=== PATIENT | female | born 2000 | race Caucasian/White ===

== ENCOUNTER 2024-04-04 16:17 | Emergency (ER) | payer MEDICAID, SELFPAY ==
--- NOTE | ~2024-04-04 | US_ITS ---
CLINICAL HISTORY: epigastric pain, vomiting US abdomen limited Comparison: None Findings: The visualized pancreas is normal. The aorta and inferior vena cava are normal caliber. The liver is normal in size and echotexture. There is no intrahepatic bile duct dilatation. The common duct is two mm in diameter. The gallbladder is normal. No stones or sludge seen. There is no sonographic Cochran sign. The main portal vein is antegrade. Visualized images of the right kidney are normal in appearance without hydronephrosis. No ascites. IMPRESSION: 1. Normal limited abdominal ultrasound. This document has been electronically signed by: Edmond Felder MD on 04/04/2024 20:17:12
[2024-04-04 16:29] VITALS: BP 130/90; PULSE 133; O2SAT 93
[2024-04-04 16:32] VITALS: BP 113/74; PULSE 111; RESP 20; TEMP 36.9; O2SAT 100; BMI 15.4
--- NOTE | 2024-04-04 16:48 | ED_ITS ---
HPI - General Adult General Chief complaint: Anxiety Stated complaint: fall in shower, vomiting Time Seen by Provider: 04/04/24 16:28 Source: patient and EMS Mode of arrival: EMS Limitations: no limitations History of Present Illness ED Provider: PRABHA DAILEY PA-C HPI narrative: 23-year-old female with pmhx significant for H pylori presents to the ED today for evaluation of nausea, vomiting and abdominal pain x6 days. Reports vomiting bile. Denies any blood in emesis. She has not been table to tolerate any PO intake. Reports having an anxiety attack while in the shower this morning as she could not stop vomiting. Reports falling to the ground. Denies head strike or LOC. Not on anticoagulation. She reports calling EMS and was transported to the ED for further evaluation. Reports hx of h pylori 1-2 yrs ago. She had an EGD done at that time and was treated appropriately. States symptoms have been fairly under control until 6 days ago. Also endorses hx of renal stones that have passed on their own. She did not require surgery/ lithotripsy. Admits to regular marijuana use. She last smoked 2-3 days ago. Denies chance of . She is currently on her menstrual period which she started 2 days ago. Denies any fever, chills, dysuria, hematuria, diarrhea, constipation, vaginal discharge. No hx of abdominal surgeries. Related Data Previous Rx's ?Medication ?Instructions ?Recorded ondansetron HCl 4 mg tablet 4 mg PO Q8H PRN nausea and 04/04/24 vomiting #10 tabs Allergies Allergy/AdvReac Type Severity Reaction Status Date / Time No Known Allergies Allergy Verified 04/04/24 16:35 Review of Systems 2 Review of Systems: Constitutional: No fever, chills, fatigue, night sweats, weight changes ENT/Mouth: No ear pain, hearing loss, nasal congestion, sinus pain, rhinorrhea, sore throat Eyes: No eye pain, swelling, redness, vision changes, discharge Cardio: No chest pain, palpitations, PELAEZ, orthopnea, peripheral edema Pulm: No SOB, cough, sputum, wheezing, dyspnea, hemoptysis GI: No hematemesis, diarrhea, constipation, hematochezia, melena, +N/V, +abd pain : No irregular bleeding, dysuria, frequency, urgency, hesitancy, hematuria, flank pain, urinary flow changes, urinary incontinence or retention MSK: No back pain, neck pain, joint pain, myalgias Skin: No lesions, rashes Neuro: No weakness, numbness, paresthesias, LOC, dizziness, headache Psych: No anxiety/panic, depression, SI/HI, AH/VH All other systems reviewed and are negative. FORMERLY [facility], 1928–1983 Past Medical History Attestation statement: The following information was validated with the patient. Source: old records reviewed and nursing notes reviewed Physical Exam ED Vital Signs: Vital Signs - 24 hr 04/04/24 16:32 04/04/24 19:33 04/04/24 22:02 Temperature 98.4 F 98.9 F 98.9 F Pulse Rate 111 H 100 100 Respiratory Rate 20 12 12 Blood Pressure 113/74 100/61 100/61 Pulse Oximetry 100 99 99 Oxygen Delivery Method Room Air Room Air Room Air BMI result Body Mass Index 15.4 tachycardic, afebrile General: pale appearing, thin, anxious Skin: Warm, dry, intact. No rashes or lesions. Head: Normocephalic, atraumatic. EENT: Hearing is intact b/l. Conjunctiva clear. PERRLA. EOM intact. Moist mucous membranes.? Neck: Supple without LAD Cardiac: Chest wall symmetric. RRR Lungs: Normal respiratory effort without accessory muscle use. CTA bilaterally. No rales, rhonchi, or wheezes.? Abdomen: soft, ND, diffusely ttp primarily in the epigastric region and LLQ with voluntary guarding. no rebound. normoactive bs. emesis bag filled with bilious vomitus. no cvat. Back: No midline spinous or paraspinal tenderness. No step off deformity. Ext: Upper and lower extremities atraumatic, without tenderness, deformity, swelling or erythema Neuro: AOx3. Normal speech. Ambulating with steady gait. Psych: Appropriate mood and affect. Responds appropriately to questions. Course Course Course Narrative: 1810 -- cbc without leukocytosis or left shift. no anemia, h&h stable. chemistry showing hyponatremia 133 (likely hypovolemic), hypokalemia to 2.6, magnesium wnl, chloride 91. no kelly. total bili 1.4. liver function wnl. lipase wnl. > imaging pending. ekg ordered d/t hypokalemia. > patient received Reglan / Benadryl for vomiting, ativan for anxiety, IVF, and potassium (IV/PO) for repletion. I ordered IV toradol for pain, patient declining stating she would prefer po tylenol. this has been ordered. 1829 -- ekg showing prolonged QT. patient moved to room w/ monitor, placed on continuous cardiac monitoring. 1899 -- patient is stable at the end of my shift. Sign-out given to sherlyn low pending UA, imaging and disposition. Reevaluation(s) Reevaluation #1: I Susan Titus PA-C have accepted care of the patient and signed out pending imaging and final disposition Right upper quadrant ultrasound:Findings: The visualized pancreas is normal. The aorta and inferior vena cava are normal caliber. The liver is normal in size and echotexture. There is no intrahepatic bile duct dilatation. The common duct is two mm in diameter. The gallbladder is normal. No stones or sludge seen. There is no sonographic Cochran sign. The main portal vein is antegrade. Visualized images of the right kidney are normal in appearance without hydronephrosis. No ascites. IMPRESSION: 1. Normal limited abdominal ultrasound. This document has been electronically signed by: Edmond Felder MD on 04/04/2024 20:17:12 Reevaluation #2: Patient feels well no longer nauseous her treatment is complete Medications Administered Discontinued Medications Generic Name Dose Route Start Last Admin Trade Name Freq PRN Reason Stop Dose Admin Acetaminophen 650 mg 04/04/24 17:58 04/04/24 18:03 Acetaminophen 325 Mg Tablet PO 04/04/24 17:59 650 mg ONCE ONE Administration Diphenhydramine HCl 25 mg 04/04/24 17:05 04/04/24 17:51 Diphenhydramine Hcl 50 Mg/Ml Vial IVPUSH 04/04/24 17:06 25 mg ONCE ONE Administration Sodium Chloride 1,000 mls @ 999 mls/hr 04/04/24 17:15 04/04/24 18:56 Ns IV 04/04/24 18:15 Infused .Q1H1M HERNAN Infusion Potassium Chloride 10 meq in 100 mls @ 100 mls/hr 04/04/24 18:15 04/04/24 21:55 Potassium Chloride/H20 IV 04/04/24 20:14 Infused Q1H HERNAN Infusion Lorazepam 0.5 mg 04/04/24 17:57 04/04/24 18:04 Lorazepam 2 Mg/Ml Vial IVPUSH 04/04/24 17:58 0.5 mg ONCE ONE Administration Metoclopramide HCl 10 mg 04/04/24 17:05 04/04/24 17:47 Metoclopramide Hcl 10 Mg/2 Ml Vial IVPUSH 04/04/24 17:06 10 mg ONCE ONE Administration Potassium Chloride 60 meq 04/04/24 18:07 04/04/24 18:55 Potassium Chloride Packet 20 Meq Packet PO 04/04/24 18:08 60 meq ONCE ONE Administration Medical Decision Making Medical Decision Making [facility] Narrative: 23-year-old female with pmhx significant for H pylori presents to the ED today for evaluation of nausea, vomiting and abdominal pain x6 days. she is tachycardic, vitals are otherwise wnl. she is thin, anxious appaering. on exam, abdomen is soft, ND, diffusely ttp primarily in the epigastric region and LLQ with voluntary guarding. no rebound. normoactive bs. emesis bag filled with bilious vomitus. no cvat. mucous membranes are dry. Differential diagnoses: appendicitis, diverticulitis, diverticulosis, UTI, renal colic, nephrolithiasis, hydronephrosis v pyelonephritis, cyclical vomiting, anxiety Abdominal exam without peritoneal signs. No evidence of acute abdomen at this time. Well appearing. Low suspicion for acute hepatobiliary disease (including acute cholecystitis), acute infectious processes (pneumonia, hepatitis, PID, TOA), vascular catastrophe, bowel obstruction or viscus perforation, ovarian cyst/ rupture/ torsion, ectopic. Presentation not consistent with other acute, emergent causes of abdominal pain at this time. Plan: labs, UA, pain control, fluids, serial reassessment +/- imaging Differential Diagnosis Differential Diagnoses: The differential diagnosis associated with the presentation includes as above. Admission/Observation Consideration of admission/observation: Escalation of care including admission/observation considered Admission considered on presentation. Lab Data [facility] Lab Attestation statement: I reviewed the patient's lab results. as above. 04/04/24 17:39 04/04/24 17:39 Labs: Lab Results 04/04/24 04/04/24 Range/Units 17:39 21:56 WBC 7.7 (4.8-10.8) X10*3/uL RBC 4.89 (4.20-5.50) X10*6/uL Hgb 14.2 (12.0-16.0) g/dl Hct 39.4 (37.0-47.0) % MCV 80.6 (80.0-98.0) fL MCH 29.0 (27.0-33.0) pg MCHC 36.0 H (31.0-35.0) g/dl RDW 15.0 (11.0-16.0) % Plt Count 439 H (160-400) X10*3/uL MPV 8.3 L (9.4-12.3) fL Immature Gran % (Auto) 0.4 (0.0-0.4) % Neut % (Auto) 64.9 (45-73) % Lymph % (Auto) 23.2 (20-40) % Floyd % (Auto) 10.8 (2-11) % Eos % (Auto) 0.3 (0-4) % Baso % (Auto) 0.4 (0-2) % Lymph # (Auto) 1.8 (1.2-4.9) X10*3/uL Floyd # (Auto) 0.8 (0.1-1.2) X10*3/uL Eos # (Auto) 0.0 (0.0-0.4) X10*3/uL Baso # (Auto) 0.0 (0.0-0.2) X10*3/uL Abs Immat Gran (auto) 0.03 (0.00-0.03) X10*3/uL Absolute Neuts (auto) 5.0 (2.0-8.3) x10*3/uL Absolute Nucleated RBC 0.000 (0.0-0.012) X10*3/uL Nucleated RBC % (auto) 0.0 (0.0-0.2) /100WBC Sodium 133 L (135-145) mmol/L Potassium 2.6 L* (3.3-5.1) mmol/L Chloride 91 L (96-108) mmol/L Carbon Dioxide 28 (22-29) mmol/L Anion Gap 17 (12-20) BUN 11 (9-16) mg/dL Creatinine 0.72 (0.5-1.4) mg/dL Estim Creat Clear Calc 79.0 Estimated GFR > 60 Random Glucose 100 (60-115) mg/dL Calcium 10.2 (8.4-10.2) mg/dL Magnesium 2.3 (1.6-2.6) mg/dL Total Bilirubin 1.4 H (0.0-1.0) mg/dL AST 26 (5-31) U/L ALT < 6 (0-31) U/L Alkaline Phosphatase 64 (39-117) U/L Total Protein 9.2 H (6.5-8.0) g/dL Albumin 4.7 (3.5-5.0) g/dL Lipase 12 (8-78) U/L Beta HCG, Quant < 2 mIU/mL Urine Color Yellow Urine Appearance Clear Urine pH >= 9.0 (5.0-9.0) Ur Specific [place] 1.010 (1.005-1.025) Urine Protein Trace (Neg-Trace) mg/dL Urine Glucose (UA) Negative (Negative) mg/dL Urine Ketones 40 (Negative) mg/dL Urine Blood Moderate (2+) H (Negative) Urine Nitrite Negative (Negative) Ur Leukocyte Esterase Trace H (Negative) Urine RBC 0-2 (0-2) /HPF Urine WBC 0-5 (0-5) /HPF Ur Squamous Epith Cells 0-2 (0-2) /HPF Urine Bacteria Trace (None Seen) Hyaline Casts 0-2 (0-2) /LPF Urine Test NEGATIVE (NEGATIVE) Influenza Type A (PCR) NEGATIVE (Negative) Influenza Type B (PCR) NEGATIVE (Negative) RSV RNA Qual (PCR) NEGATIVE (Negative) SARS-CoV-2 RNA (RT-PCR) NEGATIVE (Negative) Independent Interpretation I performed an independent interpretation of an: EKG and Ultrasound Interpretation: RUQ us w/o gb wall thickening, no sludge EKG showing normal sinus rhythm, rate 95 beats per minute, QT 432, prolonged QT, no acute ischemic changes or ST elevations. Radiology Impression Discussion of test interpretation with radiology: I have reviewed the radiologist's reading. Radiologist Impression: Procedure(s): US abdomen limited Accession Number(s): [id number] cc: Physician,Unknown ; Prabha Dailey~ CLINICAL HISTORY: epigastric pain, vomiting US abdomen limited Comparison: None Findings: The visualized pancreas is normal. The aorta and inferior vena cava are normal caliber. The liver is normal in size and echotexture. There is no intrahepatic bile duct dilatation. The common duct is two mm in diameter. The gallbladder is normal. No stones or sludge seen. There is no sonographic Cochran sign. The main portal vein is antegrade. Visualized images of the right kidney are normal in appearance without hydronephrosis. No ascites. IMPRESSION: 1. Normal limited abdominal ultrasound. This document has been electronically signed by: Edmond Felder MD on 04/04/2024 20:17:12 Prescription Management I considered prescription management with: Pain Medication Chronic Conditions Patient?s care impacted by: Other (anxiety) Social Determinants Patient?s care significantly limited by Social Determinants of Health including: Other Social Determinant of Health Critical Care Time Critical Care Time Critical Care Time: No Discharge Plan Discharge Clinical Impression: Acute anxiety, Nausea & vomiting, Acute hypokalemia Patient Disposition: Home, Self-Care Instructions: Potassium Content of Foods List (ED), Hypokalemia (ED), Acute Nausea and Vomiting (ED), Anxiety (ED) Additional Instructions: Overall, all of your screening labs were normal, besides your potassium which was low. See home care instructions, I have provided you with a list of potassium rich foods. The low potassium was induced by the vomiting. Uses Zofran as needed for additional nausea. The ultrasound of your abdomen was normal. Follow up with your primary care provider as needed. Prescriptions: New ondansetron HCl 4 mg tablet 4 mg PO Q8H PRN (Reason: nausea and vomiting) Qty: 10 0RF Interventions: ED Discharge Assessment Last Done: 04/04/24 22:02 Discharge Date/Time: 04/04/24 22:05 Print Language: American
[2024-04-04 17:45] LABS: MANUAL DIFF FLAG NO
[2024-04-04 17:46] LABS: Basophils Percent Auto 0.4 % (0-2); Eosinophils Percent Auto 0.3 % (0-4); Hematocrit 39.4 % (37.0-47.0); Hemoglobin 14.2 g/dl (12.0-16.0); Imm Gran Abs Auto 0.03 X10*3/uL (0.00-0.03); Imm Gran Pct Auto 0.4 % (0.0-0.4); Lymphocytes Absolute Auto 1.8 X10*3/uL (1.2-4.9); Lymphocytes Percent Auto 23.2 % (20-40); Mean Corpuscular Volume 80.6 fL (80.0-98.0); Mean Platelet Volume 8.3 fL (9.4-12.3); Monocytes Absolute Auto 0.8 X10*3/uL (0.1-1.2); Monocytes Percent Auto 10.8 % (2-11); Neutrophils Percent Auto 64.9 % (45-73); Platelet Count 439 X10*3/uL (160-400); Red Blood Count 4.89 X10*6/uL (4.20-5.50); White Blood Count 7.7 X10*3/uL (4.8-10.8)
[2024-04-04] MEDS: Metoclopramide HCl 10 MG/2 ML VIAL IVPUSH (17:47)
[2024-04-04] MEDS: diphenhydrAMINE HCL 50 MG/ML VIAL 25 MG IVPUSH (17:51)
[2024-04-04] MEDS: 0.9 % Sodium Chloride 1,000 ML 999 ML IV (17:53)
[2024-04-04] MEDS: Acetaminophen 325 MG TABLET 650 MG PO (18:03)
[2024-04-04] MEDS: LORazepam 2 MG/ML VIAL 0.5 MG IVPUSH (18:04)
[2024-04-04 18:06] LABS: Alanine Aminotransferase < 6 U/L (0-31); Albumin Level 4.7 g/dL (3.5-5.0); Alkaline Phosphatase 64 U/L (39-117); Anion Gap 17 (12-20); Aspartate Amino Transferase 26 U/L (5-31); Bilirubin Total 1.4 mg/dL (0.0-1.0); Blood Urea Nitrogen 11 mg/dL (9-16); Calcium 10.2 mg/dL (8.4-10.2); Carbon Dioxide 28 mmol/L (22-29); Chloride 91 mmol/L (96-108); Estimated Glomerular Filt Rate > 60; Glucose Random 100 mg/dL (60-115); Lipase 12 U/L (8-78); Magnesium 2.3 mg/dL (1.6-2.6); Potassium 2.6 mmol/L (3.3-5.1); Sodium 133 mmol/L (135-145); Total Protein 9.2 g/dL (6.5-8.0)
--- NOTE | 2024-04-04 18:06 | ECG_ITS ---
Test Reason : ANXIETY Blood Pressure : */* mmHG Vent. Rate : 95 BPM Atrial Rate : 95 BPM P-R Int : 132 ms QRS Dur : 86 ms QT Int : 432 ms P-R-T Axes : 86 99 70 degrees QTcB Int : 542 ms Normal sinus rhythm Rightward axis Prolonged QT Abnormal ECG No previous ECGs available Referred By: Prabha Dailey Electronically Signed By: Dante Taylor
[2024-04-04 18:27] LABS: Influenza A PCR NEGATIVE (Negative); Influenza B PCR NEGATIVE (Negative); Resp Syncy Virus RNA Qual PCR NEGATIVE (Negative); SARS COV2 PCR INHOUSE NEGATIVE (Negative)
[2024-04-04] MEDS: Potassium Chloride/H20 10 MEQ/100 ML PIGGYBACK 100 MEQ IV ×2 (18:37→19:55)
[2024-04-04] MEDS: Potassium Chloride Packet 20 MEQ PACKET 60 MEQ PO (18:55)
[2024-04-04 19:33] VITALS: BP 100/61; PULSE 100; RESP 12; TEMP 37.2; O2SAT 99
[2024-04-04 19:37] LABS: HCG Quantitative < 2 mIU/mL
--- OUTSIDE RECORDS SUMMARY | 2024-04-04 20:00 | XMS_ITS | Clinical Summary ---
Author Organization [facility] Address [phone] [facility] [place] [address] [place] [address] Care Team Providers Care Cotton Farmer Name Role Phone Honey Pollock PA-C Unavailable [phone] Lester Covington MD Unavailable Maye Avila MD Primary Care Provider [phone] Allergies No known active allergies Medications Medication Sig Dispensed Refills Start Date End Date Status ondansetron (ZOFRAN) 8 MG tablet Take 1 tablet (8 mg total) by mouth every 8 (eight) hours as needed for nausea. 90 tablet 01/17/2024 Active tacrolimus (PROTOPIC) 0.1 % ointment Apply topically 2 (two) times a day. Apply thin layer to face X 2 weeks, 30 g 1 01/17/2024 Active fluticasone propionate (FLONASE) 50 mcg/actuation nasal sprayIndications:All ergic rhinitis, unspecified seasonality, unspecified trigger 2 sprays by Nasal route daily. 11.1 mL 03/21/2024 Active rimegepant (NURTEC) 75 mg tablet Take 1 tablet (75 mg total) by mouth every other day. 8 tablet 03/21/2024 Active ondansetron (ZOFRAN-ODT) 4 MG disintegrating tablet Take 1 tablet (4 mg total) by mouth every 8 (eight) hours as needed for nausea. 10 tablet 04/03/2024 Active rimegepant (NURTEC) 75 mg tablet Take 1 tablet (75 mg total) by mouth every other day. 16 tablet 11 09/09/2023 02/12/202 5 Discontinue d(Reorder) fluticasone propionate (FLONASE) 50 mcg/actuation nasal sprayIndications:All ergic rhinitis, unspecified seasonality, unspecified trigger 2 sprays by Nasal route daily. 16 g 11 10/04/2023 5 Discontinue d(Reorder) Active Problems Problem Noted Date Diagnosed Date Positive Lyme disease serology 12/27/2023 Overview (01/02/2024): 12/26/23 - Lyme Ab, IgM, positive; Western Blot positive for 1 IgG and 1 IgM protein. Assessment & Plan (01/02/2024 2:36 PM EST): Appears well. Afebrile. No pharyngeal swelling or erythema. Mild bilateral cervical lymphadenopathy; improved compared to prior. Non-tender. No abdominal tenderness or fullness on exam. Continue on Doxycycline for 3 more days for Lyme; new script sent. Provided with home care instructions for [place]. and Lyme including continued rest and no contact sports, heavy lifting x 4 weeks. Follow up if no continued improvement or any recurrent symptoms. Patient verbalized understanding and agrees with this plan of care. Body aches 12/26/2023 Assessment & Plan (12/26/2023 3:55 PM EST): Appears ill; no acute distress. Afebrile. BP low (90/50). Bilateral tender cervical adenopathy. Posterior pharyngeal erythema. Bilateral middle ear effusion. Lungs CTA throughout all lobes. TTP RUQ. No rigidity or guarding. No CVA tenderness. COVID, Flu and rapid strep. negative. Check CBC, CMP, Lyme, Monospot and HCG Quant. Samples sent for UA and Wet prep. Appears consistent with viral infection. Will contact with results and management plan as necessary. Nasal saline and nasal steroid spray twice daily for 7 days then once daily for 7 days. Rest and plenty of fluids. Cool mist humidifier in room overnight. Please follow-up if no improvement or any worsening symptoms. Patient verbalized understanding and agrees with this plan of care. Stuffy and runny nose 12/26/2023 Assessment & Plan (12/26/2023 3:56 PM EST): Appears ill; no acute distress. Afebrile. BP low (90/50). Bilateral tender cervical adenopathy. Posterior pharyngeal erythema. Bilateral middle ear effusion. Lungs CTA throughout all lobes. TTP RUQ. No rigidity or guarding. No CVA tenderness. COVID, Flu and rapid strep. negative. Check CBC, CMP, Lyme, Monospot and HCG Quant. Samples sent for UA and Wet prep. Appears consistent with viral infection. Will contact with results and management plan as necessary. Nasal saline and nasal steroid spray twice daily for 7 days then once daily for 7 days. Rest and plenty of fluids. Cool mist humidifier in room overnight. Please follow-up if no improvement or any worsening symptoms. Patient verbalized understanding and agrees with this plan of care. Sore throat 12/26/2023 Assessment & Plan (12/26/2023 3:56 PM EST): Appears ill; no acute distress. Afebrile. BP low (90/50). Bilateral tender cervical adenopathy. Posterior pharyngeal erythema. Bilateral middle ear effusion. Lungs CTA throughout all lobes. TTP RUQ. No rigidity or guarding. No CVA tenderness. COVID, Flu and rapid strep. negative. Check CBC, CMP, Lyme, Monospot and HCG Quant. Samples sent for UA and Wet prep. Appears consistent with viral infection. Will contact with results and management plan as necessary. Nasal saline and nasal steroid spray twice daily for 7 days then once daily for 7 days. Rest and plenty of fluids. Cool mist humidifier in room overnight. Please follow-up if no improvement or any worsening symptoms. Patient verbalized understanding and agrees with this plan of care. Possible 12/26/2023 Assessment & Plan (12/26/2023 3:57 PM EST): Check HCG Quant. Samples sent for UA and Wet prep. Fever 12/26/2023 Assessment & Plan (12/26/2023 3:56 PM EST): Appears ill; no acute distress. Afebrile. BP low (90/50). Bilateral tender cervical adenopathy. Posterior pharyngeal erythema. Bilateral middle ear effusion. Lungs CTA throughout all lobes. TTP RUQ. No rigidity or guarding. No CVA tenderness. COVID, Flu and rapid strep. negative. Check CBC, CMP, Lyme, Monospot and HCG Quant. Samples sent for UA and Wet prep. Appears consistent with viral infection. Will contact with results and management plan as necessary. Nasal saline and nasal steroid spray twice daily for 7 days then once daily for 7 days. Rest and plenty of fluids. Cool mist humidifier in room overnight. Please follow-up if no improvement or any worsening symptoms. Patient verbalized understanding and agrees with this plan of care. Vaginal discharge 12/26/2023 Assessment & Plan (12/26/2023 3:57 PM EST): No CVA tenderness. Check HCG Quant. Samples sent for UA and Wet prep. RUQ pain 12/26/2023 Assessment & Plan (12/26/2023 3:56 PM EST): Appears ill; no acute distress. Afebrile. BP low (90/50). Bilateral tender cervical adenopathy. Posterior pharyngeal erythema. Bilateral middle ear effusion. Lungs CTA throughout all lobes. TTP RUQ. No rigidity or guarding. No CVA tenderness. COVID, Flu and rapid strep. negative. Check CBC, CMP, Lyme, Monospot and HCG Quant. Samples sent for UA and Wet prep. Appears consistent with viral infection. Will contact with results and management plan as necessary. Nasal saline and nasal steroid spray twice daily for 7 days then once daily for 7 days. Rest and plenty of fluids. Cool mist humidifier in room overnight. Please follow-up if no improvement or any worsening symptoms. Patient verbalized understanding and agrees with this plan of care. Cervical adenopathy 12/26/2023 Assessment & Plan (12/26/2023 3:56 PM EST): Appears ill; no acute distress. Afebrile. BP low (90/50). Bilateral tender cervical adenopathy. Posterior pharyngeal erythema. Bilateral middle ear effusion. Lungs CTA throughout all lobes. TTP RUQ. No rigidity or guarding. No CVA tenderness. COVID, Flu and rapid strep. negative. Check CBC, CMP, Lyme, Monospot and HCG Quant. Samples sent for UA and Wet prep. Appears consistent with viral infection. Will contact with results and management plan as necessary. Nasal saline and nasal steroid spray twice daily for 7 days then once daily for 7 days. Rest and plenty of fluids. Cool mist humidifier in room overnight. Please follow-up if no improvement or any worsening symptoms. Patient verbalized understanding and agrees with this plan of care. Infectious mononucleosis without complication Overview (01/02/2024): 12/26/23 - Heterophile Ab, positive. Assessment & Plan (01/02/2024 2:36 PM EST): Appears well. Afebrile. No pharyngeal swelling or erythema. Mild bilateral cervical lymphadenopathy; improved compared to prior. Non-tender. No abdominal tenderness or fullness on exam. Continue on Doxycycline for 3 more days for Lyme; new script sent. Provided with home care instructions for [place]. and Lyme including continued rest and no contact sports, heavy lifting x 4 weeks. Follow up if no continued improvement or any recurrent symptoms. Patient verbalized understanding and agrees with this plan of care. control counseling 10/14/2023 Assessment & Plan (10/14/2023 11:27 AM EDT): Would defer adding hormonal contraception to the mix at this time given ongoing mood disorder, starting new migraine meds, etc. She will switch to non-latex condom ie polyisoprene option. She could switch lubricant from water based to coconut oil. Would want her psychiatrist's OK prior to initiation of OCP. Readdress longitudinally. Protein-calorie malnutrition, moderate Assessment & Plan (10/14/2023 11:24 AM EDT): Weight stable. Hopefully as migraine Rx starts to kick in this will turn around. Reports her appetite is improving. Will request nutrition consult again. Short term follow-up for weight check. Assessment & Plan (10/04/2023 3:04 PM EDT): Weight down 11# in 2-3 weeks, she attributes to chronic nausea/vomiting in setting of increased migraines triggered in part by worsening allergies, also confounded by ongoing anxiety. Declines purposeful food restriction. Will attempt improved allergy Rx, she plans to start Nurtec in the near term. Suggest she hold all dairy, she will look for milk-substitute (ie soy, dairy, almond milk) to make smoothies. Will request nutrition consult. Short term follow-up for weight check. Assessment & Plan (09/16/2023 2:55 PM EDT): Weight stable. Continue efforts at maximizing nutrition, maintaining a healthy weight, and regular aerobic exercise (goal 150 minutes per week) to achieve long-term health goals. Emphasize healthy food choices, portion control. Consider crm marketing analyst referral for ongoing support. Longitudinally monitor. Pre-menstrual syndrome 08/19/2023 Assessment & Plan (08/19/2023 9:05 AM EDT): Discussed option of long-acting contraceptives as potentially beneficial for her symptoms. Provided with patient education to review. Referred to MANAGER RETAIL for further evaluation and management. Patient verbalized understanding and agrees with this plan of care. Migraine with visual aura 08/19/2023 Assessment & Plan (10/14/2023 11:25 AM EDT): Undergoing evaluation/treatment per neurology. Note given to return to work next week. Assessment & Plan (10/04/2023 3:06 PM EDT): Undergoing evaluation/treatment per neurology. Out on FMLA, will reassess mid October. Assessment & Plan (09/16/2023 2:55 PM EDT): Undergoing evaluation/treatment per neurology. OK for FMLA ppw, filled out in office today. Assessment & Plan (08/19/2023 9:05 AM EDT): Referred to Ophthalmology for further evaluation. Allergic rhinitis 04/22/2023 Assessment & Plan (10/14/2023 11:25 AM EDT): Improved on addition of singulair. Assessment & Plan (10/04/2023 3:05 PM EDT): Will add singulair to current regimen for goals of improved nasal congestion. D/C dairy in case this is additive. Hold ENT eval in reserve for ongoing. Assessment & Plan (06/09/2023 12:02 PM EDT): Well controlled with Flonase Assessment & Plan (04/22/2023 12:50 PM EDT): The patient has evidence of allergic rhinitis. The patient will benefit from daily maintenance nasal corticosteroid therapy. Start Flonase 2 sprays each nostril qd. Try Neti pot sinus rinses to remove post nasal drip. Environmental allergy testing will be performed in the future when off antihistamines for 1 week. Posttraumatic stress disorder 10/01/2022 Assessment & Plan (03/31/2023 10:38 AM EST): Maintain hydration, d/c caffeine-containing products, alcohol, and/or marijuana-containing products if applicable. Exercise as able, maximize sleep and nutrition. Stress relief modalities as appropriate. Verbally contracted for safety. Establish with therapist. Readdress longitudinally. Assessment & Plan (10/01/2022 10:52 AM EDT): - I believe that fluoxetine would be a reasonable choice as a medication trial; I would start at a low dose, such as 10 mg and titrate slowly as tolerated, up to 60 mg daily. It tends to be more of an activating medication, which may reduce fatigue symptoms when starting the medication. - If fluoxetine is ultimately ineffective or cannot be tolerated, duloxetine would be a reasonable choice, particularly given her history of juvenile rheumatoid arthritis and her reports of continued chronic pain symptoms. I would again start at a low dose, 20 mg daily, titrating up to a maximum of 120 mg daily. - While lorazepam could be helpful at aborting panic symptoms, I generally try to avoid benzodiazepines in patients with trauma history due to potential for paradoxical reaction; if her blood pressure can tolerate it, low-dose clonidine or propranolol may be reasonable options as long as dosing is infrequent. - As I mentioned above, I believe that connecting with a psychotherapist would be very beneficial. Specifically, therapist trained in working with patients with severe trauma and/or PTSD would likely be most beneficial. Annual physical exam 09/28/2022 Assessment & Plan (10/04/2023 3:05 PM EDT): Continue efforts at routine exercise (goal 30 minutes 5-7 days/week), healthy diet, maintain healthy weight. Adequate calcium and vitamin D. Seatbelts/sunscreen. Routine ophtho/dental. Age-specific USPSTF screening tests reviewed. Pap per court abstractor, will request prior records. Assessment & Plan (09/28/2022 8:41 PM EDT): Continue efforts at routine exercise (goal 30 minutes 5-7 days/week), healthy diet, maintain healthy weight. Adequate calcium and vitamin D. Seatbelts/sunscreen. Routine ophtho/dental. Age-specific USPSTF screening tests reviewed. Anxiety 08/06/2022 Assessment & Plan (10/04/2023 3:05 PM EDT): Per psych. Assessment & Plan (03/31/2023 10:37 AM EST): Reports somewhat improved on fluoxetine although still with intermittent episodes of panic/vomiting -- PTSD vs other. OK for rare intermittent benzodiazepine. We reviewed the medical recommendations to avoid regular use of benzodiazepines given the possibility for sedation, tolerance, addiction, and/or drug interactions. There are data which suggest an increased risk of dementia following chronic use of these medications. Appreciate psych input, can trial clonidine or propranolol if necessary. She is planning to establish with local psych and therapy. Assessment & Plan (09/08/2022 6:10 PM EDT): Patient with persistent anxiety and depression, more recently she has developed panic attacks. We discussed proper use of medication. Specifically, we discussed that Ativan is intended for short-term use only and is not intended as the primary medication for managing anxiety and depression. She was warned that Ativan can cause drowsiness and that she cannot drive, operate heavy machinery or drink while taking this medication. To help improve her anxiety and depression, I believe a mood stabilizer would provide better overall balance of her emotional state. We will start Lamictal with the following schedule: Week 1 and 2: Take 1 tablet once daily Week 3 and 4: Take 2 tablets once daily Week 5: Take 4 tablets daily I have also prescribed lorazepam, educating her on proper use as above to help with anxiety. From an anxiety perspective, she would be a good candidate for clonidine. Unfortunately her blood pressure is already low, therefore this medication would not be appropriate this time but could be considered in the future. I have encouraged her to establish care with psychiatry and therapy as this is a critical part of managing her anxiety and depression. Patient has an already scheduled physical with her PCP in 2 weeks. I have also scheduled a follow-up for 6 weeks from now to evaluate the effectiveness of the Lamictal. Medication dose can be adjusted at that time if needed Patient advised to go to ER or call 911 if she feels she is unsafe at any time. Gastritis and gastroduodenitis 02/25/2022 Assessment & Plan (03/30/2022 10:02 AM EST): Reports somewhat improved on carafate, and d/c marijuana. Has GI f/u next week. Intermittent vomiting 11/26/2021 Assessment & Plan (10/04/2023 3:07 PM EDT): In setting of anxiety, migraine as above. Medication changes as above. Suggest [id number] zofran for the near term in order to maximize PO intake. Nutrition follow-up as above. Short term follow-up to reassess. Assessment & Plan (06/09/2023 12:02 PM EDT): Continue Ondansetron prn Assessment & Plan (03/31/2023 10:38 AM EST): Suspect multifactorial. She wonders if her seasonal allergies are playing a role, OK for foundation director julieth. 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 Pylori treatment -Follow-up UBT as scheduled -may continue benadryl at this time -continue to monitor diet and avoid triggering foods -follow-up 3 months Assessment & Plan (11/08/2022 10:14 AM EDT): Intermittent bouts severe nausea / vomiting Has led to multiple ER visits Prior testing reviewed in detail + H. Pylori gastritis on EGD July 2021- Completed treatment and needs follow-up testing Also discussed possible gastroparesis ? [facility] She does use marijuana but states not to excess Plan -UBT ordered -If UBT negative- will proceed with GES -continue to avoid diet triggers -famotidine 40 mg at hs -Zofran prn -follow-up visit 3-4 months Assessment & Plan (10/21/2022 3:07 PM EDT): Follow-up next week with GI. In the meantime I did encourage her to continue adequate fluids in particular. She will repeat her labs early next week. Assessment & Plan (10/18/2022 3:14 PM EDT): Study is pending regarding H. pylori.? Gastric emptying study would be helpful. She is referred to return to GI to discuss considering she has had another episode of nausea with vomiting. In the meantime I encouraged fluid intake aggressively over the next few days. Can try Pedialyte or Pedia sure. Follow-up in 3 days. If she is not able to maintain fluid or foods, unfortunately she would need to be seen in the ER for IV. This is discussed and she agrees with the plan. Assessment & Plan (04/05/2022 10:58 PM EST): Persistent episodes of nausea / vomiting ongoing since Nov 2021 She has had multiple ER visits Labs and CT imaging unrevealing of cause Trials of PPI medications did not lead to improvement Carafate somewhat helpful She reports she discontinued marijuana use for a few weeks and nausea has not resolved We discussed diagnostic considerations including acid-related disease ( esophagitis, gastritis, PUD), H. Pylori, bile gastritis, gallbladder disease, gastroparesis Plan -Recommend proceeding with EGD and she would like to proceed -H. Pylori stool Ag -continue carafate- may take up to QID basis -If EGD / H.Pylori testing neg- plan on proceeding with gastric emptying study -encouraged her to continue to avoid marijuana -follow-up visit in office after EGD Assessment & Plan (03/30/2022 10:02 AM EST): Reports improved off marijuana. Suggest d/c indefinitely at this point. Assessment & Plan (01/22/2022 4:14 PM EST): Chronic ongoing issue No cause found at ED Related to humira? Related to ra? Was previously on PPI with no relief, no relief with zofran Has appt with report specialist next week Plan for GI referral Patient verbalized understanding and agrees with this plan of care Reviewed signs and symptoms and reasons to seek medical care Assessment & Plan (11/26/2021 10:35 AM EDT): According to pt cannot keep any food down Has lost ~13 lbs since 10/29 Plan to trial zofran 8mg BID Spoke about importance of hydration Referral to GI placed I will f/u with her in 2 weeks to see how she is doing Patient verbalized understanding and agrees with this plan of care Reviewed signs and symptoms and reasons to seek medical care Depression, recurrent 10/27/2021 Overview (03/31/2023): Posttraumatic stress disorder Current Assessment & Plan - I believe that fluoxetine would be a reasonable choice as a medication trial; I would start at a low dose, such as 10 mg and titrate slowly as tolerated, up to 60 mg daily. It tends to be more of an activating medication, which may reduce fatigue symptoms when starting the medication. - If fluoxetine is ultimately ineffective or cannot be tolerated, duloxetine would be a reasonable choice, particularly given her history of juvenile rheumatoid arthritis and her reports of continued chronic pain symptoms. I would again start at a low dose, 20 mg daily, titrating up to a maximum of 120 mg daily. - While lorazepam could be helpful at aborting panic symptoms, I generally try to avoid benzodiazepines in patients with trauma history due to potential for paradoxical reaction; if her blood pressure can tolerate it, low-dose clonidine or propranolol may be reasonable options as long as dosing is infrequent. Assessment & Plan (10/14/2023 11:24 AM EDT): Per psychiatry. Verbally contracted for safety. Assessment & Plan (10/04/2023 3:02 PM EDT): Per psychiatry. Verbally contracted for safety. Assessment & Plan (09/16/2023 2:56 PM EDT): Per psychiatry. Verbally contracted for safety. Assessment & Plan (03/31/2023 10:36 AM EST): Reports depression controlled. Continue current medication. Verbally contracted for safety. Contact info for local psych and therapy provided. Readdress longitudinally. Assessment & Plan (09/28/2022 8:29 PM EDT): Has been recommended she establish with psych for > 12 months. We again reviewed this today. Phone numbers given for behavioral health options. Will request 1-time psych I-care review as well in case she can't get in to behavioral health in the near term. Will hold off on initiation of SSRI right now, particularly with question of mood swings, ?bipolar diagnosis. Will check screening labs. Verbally contracted for safety. Short term follow up to ensure she is establishing with specialists and follow up on ongoing clinical symptoms. Assessment & Plan (03/30/2022 10:01 AM EST): Somewhat improved on wellbutrin, she self-increased her dose to 300mg last week. Discussed 4-6 week lag time for peak efficacy. Agree with therapy evaluation, local resources provided. Verbally contracted for safety. Low threshold for psych input for diagnostic clarification and/or medication management. Follow up 4 weeks for medication check. Assessment & Plan (02/25/2022 5:09 PM EST): Agreeable to start medications today. Side effect profile reviewed including black-box warning for her age group. Verbally contracted for safety. Consider therapy evaluation. Low threshold for psych input for diagnostic clarification and/or medication management. Follow up 4-6 weeks for medication check. Scoliosis deformity of spine 10/27/2021 Intrinsic eczema 12/22/2015 Overview (08/12/2022): Poorly controlled, seen by derm (Dr. Lin) in the past, poor compliance with topical steroids and emolients Assessment & Plan (04/22/2023 12:51 PM EDT): The patient has a history of atopic dermatitis. The patient will benefit from the daily use of topical moisturizing agents. Topical corticosteroids may be used as needed. Assessment & Plan (12/14/2022 3:52 PM EST): Patient has recurrent eczema. Previously followed by furnace utility operator has not been seen in several years. Today, will treat her back and hands with clobetasol. We will treat the eczema on her face with tacrolimus ointment. Patient advised she can use these medications for 2 weeks. Discussed proper use. Encourage patient to schedule follow-up with dermatology as this has been a chronic concern for her for many years. Discussed ways to prevent eczema flares as well as manage current flare. History of juvenile rheumatoid arthritis 015 Assessment & Plan (10/04/2023 3:05 PM EDT): Noted. No evidence of active inflammation per last rheumatology evaluation. No longer follows up with rheum. Assessment & Plan (09/28/2022 8:41 PM EDT): Noted. No evidence of active inflammation per last rheumatology evaluation. Assessment & Plan (03/30/2022 10:03 AM EST): Thought not to have evidence of active inflammatory arthritis per recent rheumatology evaluation. Assessment & Plan (02/25/2022 5:09 PM EST): Per Dr. Meneses. Assessment & Plan (11/09/2021 1:36 AM EDT): Symptoms resumed last year with back pain, knee and kip pain, joint rashes. She would like to establish care with [facility]. Referred to [facility] Rheumatology for ongoing follow-up. Resolved Problems Problem Noted Date Diagnosed Date Resolved Date Menstrual cramp 08/19/2023 10/03/2023 Assessment & Plan (08/19/2023 9:05 AM EDT): Discussed option of long-acting contraceptives as potentially beneficial for her symptoms. Provided with patient education to review. Referred to [facility] for further evaluation and management. Patient verbalized understanding and agrees with this plan of care. Arthritis 01/25/2023 03/31/2023 Depressive disorder 01/25/2023 03/31/19 Gastroesophageal reflux disease 01/25/2023 03/31/2023 Vaginal bleeding 11/23/2022 03/31/2023 Low blood potassium 10/21/2022 03/31/19 24 Assessment & Plan (11/26/2022 8:15 PM EDT): Will recheck potassium today Assessment & Plan (10/21/2022 3:06 PM EDT): Prescription given for potassium tablets 20 mEq daily for 3 days. Repeat labs on the . She plans to return for GI follow-up on the . Syncope and collapse 10/18/2022 024 Assessment & Plan (11/26/2022 8:17 PM EDT): 21-year-old female who reports approximately 1 month of orthostatic symptoms with 1 episode of syncope 2 weeks ago. Patient is hypotensive at baseline. This is likely due to her small stature. She declined orthostatic blood pressures today. Her exam today was unremarkable. She is neurologically intact. Check a CMP, CBC, iron studies and TSH today to look for potential causes for her symptoms. We will treat based on results of indicated. Patient is very concerned about the symptoms and her aunts history of neurologic issues. Should her serologic work-up be negative today, can consider neurology for further evaluation. Assessment & Plan (10/18/2022 3:15 PM EDT): Very likely related to decreased weight, low fluid and food intake, decreased blood pressure. Also consider anemia as a primary cause. She is planning to do labs today. Follow-up in 3 days. H. pylori infection 08/12/2022 10/03/19 Overview (08/12/2022): EGD 07/2022 Assessment & Plan (03/31/2023 10:37 AM EST): Per GI. Assessment & Plan (02/23/2023 5:14 PM EST): Persistent H. Pylori infection- Refractory to 2 previous courses of treatment. Initial treatment August 2022- omeprazole, bismuth, flagyl, doxycycline. 2nd treatment Nov 2022- omeprazole, amoxicillin, levofloxacin EGD on 01/25/23- + for H. Pylori She is now completing new course of: omeprazole, bismuth, flagyl and doxycycline. She reports she is consistent with dosing of medications Interestingly, she reports that her nausea and vomiting has improved with regular dosing of benadryl. Plan -She will complete full course of current H. Pylori treatment -She will return for a repeat urea breath test at approx 6 weeks following completion of treatment. -If UBT is again positive- plan on pursuing ID consultation -advised ok to continue benadryl dosing at this time -follow-up visit 3 months Assessment & Plan (11/08/2022 10:13 AM EDT): H. Pylori gastritis Diagnosed via EGD July She completed Helidac therapy Has not had follow-up testing Ongoing dyspepsia symptoms- reflux, epigastric pain, nausea / vomiting Plan -Urea breath testing ordered- She will return to the lab for this at her soonest convenience -If UBT is negative- will proceed gastric emptying study -After UBT- she will start famotidine 40 mg at hs -GERD diet reviewed / encouraged -continue dicyclomine prn cramping -continue zofran prn nausea -follow-up visit 3-4 months Arthritis 08/06/2022 08/12/2022 Overview (08/06/2022): rheumatoid juvenile arthritis Gastroesophageal reflux disease 08/06/2022 08/12/2022 General counseling for initi ation of other contraceptive measures 07/06/2022 08/12/2022 Assessment & Plan (07/06/2022 4:11 PM EDT): Dusty is a 21 y.o. female with PMH JRA, Scolioisis, JAGJIT/ Depression, Gastritis, Eczema who presents for control consult. Reviewed all control options with patient and pt expresses preference for Depo Reviewed medication efficacy, benefits, SE and potential AE. Advised condom use for STI prevention. Able to be reasonably sure patient is not . Discussed quick start method. Educated patient to use back up method for 7 days after initiating new contraceptive method. Rx Depo SQ Scheduled for RN Depo visit tomorrow 3 month FU Patient verbalized understanding of and agreement with plan of care Reviewed 911/ ED precautions. Reviewed signs and symptoms and reasons to seek medical care. Labial irritation 07/06/2022 08/12/2022 Assessment & Plan (07/06/2022 4:08 PM EDT): Pt reports occasional sensation of R labial sensitivity and subjective swelling without visible changes - Not a/w rashes, lesions, discharge, dysuria or other concerns. - Not a/w sexual activity - Wondering if A/w menstrual cycle pains. Exam WNL without evidence of infection, rashes, cysts. DDx: contact dermatitis vs. Atopic irritation vs. Cysts vs. HSV vs. Vulvovaginal irritation Advised monitoring for and avoiding triggers Labs: Wet prep and GCC collected in office Patient verbalized understanding of and agreement with plan of care Reviewed 911/ ED precautions. Reviewed signs and symptoms and reasons to seek medical care. History of trichomoniasis 07/06/2022 Altered bowel habits 04/05/2022 023 Assessment & Plan (04/05/2022 11:04 PM EST): Dusty reports h/o altered bowel habits for many years Freq loose stools usually occurring each AM with associated cramps / urgency She may also occasionally feel constipated Freq gas / bloat symptoms She is taking dicyclomine and this has provided some relief Her symptoms are most suggestive of IBS We discussed proceeding with colonoscopy at the time of her EGD but she declines at this time Plan -Continue dicyclomine -Recommended starting daily fiber supplement with benefiber - reviewed dosing instructions -encouraged efforts healthy diet, stay well hydrated -proceed with EGD / H. Pylori testing -follow-up in office 3 months Immunosuppressed status 02/25/2022 022 02/2022 Assessment & Plan (02/25/2022 5:09 PM EST): Ulises per Dr. Meneses. Rheumatoid arthritis of [facility] sites with negative rheumatoid factor 12/30/2021 03/30/2022 Anxiety state 12/17/2021 08/12/2022 Assessment & Plan (04/30/2022 4:17 PM EDT): Hydroxyzine dose increased at last appt to 100mg BID Pt says he anxiety feels more controlled Is also taking wellbutrin Overall she is feeling Much better Denies any thoughts to hurt self or others, denies any suicidal plans, verbally contracted for safety. Resources provided for therapy Plan to continue on current tx plan Patient verbalized understanding and agrees with this plan of care Reviewed signs and symptoms and reasons to seek medical care Assessment & Plan (03/30/2022 10:01 AM EST): Mediation titration as above. Continue hydroxyzine PRN. Therapy eval. Assessment & Plan (02/25/2022 5:13 PM EST): Previously referred to psych, she was unable to follow through with this appointment. Will trial wellbutrin/PRN hydroxyzine today. Short term f/u for medication check. Assessment & Plan (01/22/2022 3:55 PM EST): Chronic Started on lexapro by me at the last visit but only took It for 2 days because she felt drowsy Plan for her to connect with psych Referrals for psychiatrist given to patient Denies any thoughts to hurt self or others, denies any suicidal plans, verbally contracted for safety. Patient verbalized understanding and agrees with this plan of care Reviewed signs and symptoms and reasons to seek medical care Assessment & Plan (12/17/2021 4:45 PM EST): Chronic issue but this is the first time she has gotten help for it Has past trauma in her life that has caused her anxiety More recently she has felt more anxious and having more panic attacks Denies any thoughts to hurt self or others, denies any suicidal plans, verbally contracted for safety. She declines wanting inpatient therapy Declines wanting a social work referral Plan to start today on lexapro + therapy (resources given to pt) Spoke at length about black box warning. Suicide hotline number provided. Pt verbalized understanding. She is going to let family members around her know she started on this, so they can be aware We extensively reviewed side effects of SSRI in addition to the importance of not stopping this medication on their own Patient verbalized understanding and agrees with this plan of care Reviewed signs and symptoms and reasons to seek medical care Abdominal pain, epigastric 11/26/2021 0 08/12/2022 Assessment & Plan (04/05/2022 11:00 PM EST): Epigastric pain, nausea / vomiting- Symptoms present since last Nov Her labs / imaging studies unrevealing of cause thus far We will proceed with EGD, H. Pylori testing Consider GES in future She will continue carafate, gas-x, dicyclomine at this time Follow-up in office after EGD Assessment & Plan (02/25/2022 5:12 PM EST): Hx reviewed: ongoing pain in abdomen since 11/16, Has been in and out of the ER for this pain. CT scan of abdomen unremarkable. With nausea, non-responsive to zofran, PPI. In setting of chronic anxiety/depression, IBS. Has upcoming appt with GI. Rx for depression/anxiety as above. Trial of carafate. Push fluids, small frequent easily digestible meals. F/U pending GI eval and clinical course. Assessment & Plan (11/26/2021 10:31 AM EDT): Ongoing pain in abdomen since 11/16 Has been in and out of the ER for this pain-- during her most recent stay she left AMA with IV in her hand She says she has been frustrated with the hospital because she is given IV hydration and sent home PT has a hx of juvinile arthritis and is followed by rheumatology--saw them yesterday and had a lot of lab work ordered (will f/u with im in 2 weeks)-- was given steroids from him Pain is constant and worse with lying flat CT scan of abdomen unremarkable Having nausea and vomiting with this pain Pt unable to keep any food down Plan to treat with zofran 8mg (4mg didn't help) to try to get caloric intake + refer to GI Told her s/s of dehydration and reasons to go to ED Patient verbalized understanding and agrees with this plan of care Reviewed signs and symptoms and reasons to seek medical care Trichomoniasis 11/06/2021 02/25/2022 Assessment & Plan (11/09/2021 1:35 AM EDT): Unable to send Wet Prep test of cure today due to vaginal bleeding from menses. Requested that patient return to give sample once menses has ended. However, discussed this test of cure may be too soon; if results are positive, it does not mean she is still infected. We can repeat testing in 4 weeks if necessary. Depo-Provera contraceptive status 10/27/2021 08/12/2022 Poor concentration 10/27/2021 Urinary frequency 10/22/2021 03/31/2023 Assessment & Plan (10/22/2021 12:42 PM EDT): Appears well; no acute distress. Tenderness to palpation of suprabic and bilateral pelvic areas. No CVA tenderness. Urine dip positive for blood, protein and LE. Start Amoxicillin x 7 days to cover suspected untreated GBS UTI based on ER culture results. However, will send for culture and adjust abx accordingly. Self-swabbed for Wet Prep. Consider taking OTC probiotic daily while on antibiotic. Hydrate well over the next few days with water and unsweetened cranberry juice. Cranberry tablets are also helpful. Contact the office if not feeling better within 2-3 days. Go to ER if develops fever and/or back pain. Follow up in 2 weeks for re-evaluation. Lower back pain 10/22/2021 02/25/2022 Assessment & Plan (10/22/2021 12:42 PM EDT): Appears well; no acute distress. Tenderness to palpation of suprabic and bilateral pelvic areas. No CVA tenderness. Urine dip positive for blood, protein and LE. Start Amoxicillin x 7 days to cover suspected untreated GBS UTI based on ER culture results. However, will send for culture and adjust abx accordingly. Self-swabbed for Wet Prep. Consider taking OTC probiotic daily while on antibiotic. Hydrate well over the next few days with water and unsweetened cranberry juice. Cranberry tablets are also helpful. Contact the office if not feeling better within 2-3 days. Go to ER if develops fever and/or back pain. Follow up in 2 weeks for re-evaluation. Metrorrhagia 10/22/2021 10/03/2023 Assessment & Plan (09/28/2022 8:32 PM EDT): Reports significant since starting Depo Provera ~3 months ago. Will check screening labs. OK to d/c at this point. Would wait until she is feeling better prior to initiating alternate hormonal control. Discussed recommendations for regular condom usage to limit the chance of and/or STD. Assessment & Plan (10/22/2021 12:41 PM EDT): Mentions vaginal bleeding in between menses since June 2021. Next menses due in 10 days. Stopped taking oral control a few months ago with no change in symptoms. No concerns about STD exposure. Not sexually active. Denies current . Self-swabbed for Wet prep. Referred to Gynecology for further evaluation. History of COVID-19 06/30/2021 02/25/19 23 Overview (10/22/2021): 06/26/21 POSITIVE home test Dizziness 12/29/2020 02/25/2022 Elevated erythrocyte sedimentation rate 12/29/2020 02/25/2022 Nausea 12/29/2020 03/31/2023 Assessment & Plan (09/28/2022 8:40 PM EDT): X past 4 days in the setting of side effects to Depo Provera, menorrhagia, recent H pylori treatment, poor po intake, ongoing uncontrolled mood disorder. Urine Hcg negative today. Agree with d/c Depo Provera. Will update labs. OK for PRN zofran. Push fluids. H pylori breath test per GI. Encourage psych eval as above. Short term follow up for symptom update. Emotional lability 09/08/2020 Vasovagal syncope 08/09/2018 02/25/2022 Overview (10/22/2021): Also with hx of chest pain and palpitations, Seen by Dr. Gomes 02/2018, normal ECG done, no need for event monitor unless palpitations recur, no echo done, f/u as needed presnycopal with burpees during practice Last Assessment & Plan: Again discussed avoiding hot showers Dysmenorrhea 03/31/2017 02/25/2022 Lymphadenopathy 02/10/2015 02/25/2022 Overview (02/25/2022): Chronic left AC node, seen by surgery who did not biopsy, labs reassuring 09/2018-still present, not growing per patient, mobile, nontender Encounters Date Type Department Care Team Description 04/03/2024 8:58 PM EST - 04/03/2024 11:13 PM EST Emergency [facility] [address] [place] [address] Rafael Flores MD Discharge Disposition: Home or Self Care 03/22/[address] [facility] - Medical Records - [place] [address] [place] [address] Provider, MD Adeline 03/21/2024 Refill [facility] [address] [place] [address] Gay Torrez MD Medication Refill from Last 3 Months Immunizations Name Administration Dates Next Due DTaP 02/03/2006, 4,06/14/2002,04/19,03/09/2002 [id number] FORMULATION 01/07/2009 HPV,quadrivalent 11/14/2013 HPV9 12/19/2014 Hepatitis B 10/11/2002,01/08/2002,2001 Hib,PRP-T 05/22/2003, 3,04/19/2002,03/09 IPV 02/03/2006, 4,04/19/2002,03/09 Influenza Quadrivalent Intranasal 11/14/2013, Influenza Quadrivalent Prese rvative Free IM 12/22/2017,03/31/2017,12/22/2015 Influenza Trivalent w/ Preservative IM 2 Influenza, Unspecified Formulation 10/26/2007, MMR 05/22/2003 MMRV 02/03/2006 Meningococcal MCV4P 11/14/2013 Pneumococcal conjugate, PCV 7 06/14/2002, 003,03/09/2002 Tdap 11/14/2013 Varicella 05/22/2003 Social History Tobacco Use Types Packs/Day Years Used Date Smoking Tobacco: Never Smokeless Tobacco: Never Tobacco Cessation:Counseling Given: Not Answered Alcohol Use Standard Drinks/Week Comments Not Currently 0 (1 standard drink = 0.6 oz pur e alcohol) Child or Family Care Answer Date Record ed Do you have problems with on e of the following making it difficult for you to work, study, or receive health care? No 09/16/2023 Education Answer Date Recorded Are you interested in help w ith more adult education (for example, completing high school, GED, job training, learning the [place] language, technical skills, or developing parenting skills)? Yes 09/16/2023 Are you concerned about your learning, performance, or behavior in school? No 09/16/2023 Yes 09/16/2023 Yes 09/16/2023 Food Answer Date Recorded Within the past 6 months we worried whether our food would run out before we got money to buy more. Never True 09/16/2023 Within the past 6 months the food we bought just didn't last and we didn't have enough money to get more. Never True Residential Stability Answer Date Recor ded What is your housing situation today? I am stayi abdulaziz with others 09/16/2023 How many times have you move d in the past 12 months? Zero (I did not move) 09/16/2023 Paying for Meds Answer Date Recorded Do you have trouble paying for medicines? No 09/16/2023 Paying Utility Bills Answer Date Record ed Do you have trouble paying your heating or elect ricity bill? No 09/16/2023 Transportation Answer Date Recorded Has the lack of transportati on kept you from medical appointments or from getting medications? No 09/16/2023 Unemployment Answer Date Recorded Are you currently unemployed or working on a part-time or temporary basis, and looking for work? Yes 09/16/2023 Digital Access Answer Date Recorded No 09/16/2023 Yes 09/16/2023 Do you have reliable internet access at home? Ye s 09/16/2023 Do you have a device (e.g., phone, tablet, computer) with a working camera? Yes 09/16/2023 SNAP & WIC Answer Date Recorded Do you receive benefits from SNAP (the Supplemental Nutrition Assistance Program) or the Food Stamp Program? Yes 09/16/2023 SNAP is a free program, interested in learning m ore? Not on file 09/16/2023 Can we help you enroll in SNAP? Not on file 09/16/2023 Benefits received from WIC? Not on file 10/2023 WIC is a free program, interested in learning mo re? Not on file 09/16/2023 Can we help you enroll in WIC? Not on file 0 09/16/2023 Sex and Gender Information Value Date Recorded Sex Assigned at Female 06/02/2020 3:33 PM EDT Gender Identity Female 06/02/2020 3:33 PM EDT Sexual Orientation Bisexual 09/15/2023 11 :02 AM EDT Sexual Orientation Lesbian or Garcia 09/15/2023 11 :02 AM EDT Last Filed Vital Signs Vital Sign Reading Time Taken Comments Blood Pressure 113/76 04/03/2024 11:12 PM EST Pulse 81 04/03/2024 11:12 PM EST Temperature 36.5 ??C (97.7 ??F) 04/03/2024 11:[address] Respiratory Rate 20 04/03/2024 11:12 PM EST Oxygen Saturation 99% 04/03/2024 11:12 PM EST Inhaled Oxygen Concentration - - Weight 41.7 kg (92 lb) 04/03/2024 7:22 PM EST Height 162.6 cm (5' 4 ) 04/03/2024 7:22 PM EST Body Mass Index 15.79 04/03/2024 7:22 PM EST Plan of Treatment Upcoming Encounters Date Type Department Care Team (Late st Contact Info) Description 04/11/2024 2:30 PM EST Office Visit [facility] [address] [place] [address] Gay Torrez MD [address] [place] [address] 10/04/2024 2:20 PM EDT Appointment [facility] [address] [place] [address] Unknown, Unknown, MD Avila, Maye Addison MD [address] [place] [address] Health Maintenance Due Date Last Done Comments HIV ONE-TIME SCREENING (18-65 YEARS) 12/03/2019 INFLUENZA VACCINE (#1) 2023 8, 03/31/2017, 12/22/2015, Additional history exists COVID-19 VACCINE ( season) 2023 Adult Td,Tdap Booster 11/15/2023 11/14/2013 DEPRESSION SCREENING 10/13/2024 10/14/2023, 10/14/19 24 CHLAMYDIA SCREENING 10/18/2024 10/19/2023, 07/07/2022, 09/29/2018 SMOKING Hx and SMOKELESS TOBACCO SCREENING 04/03/2025 04/03/2024 PAP SMEAR 01/07/2026 01/07/2023 PNEUMOCOCCAL VACCINES (0-49 years) Aged Out 06/14/2002, 04/19/2002, 03/09/2002 No longer eligible based on patient's age to complete this topic HEPATITIS B VACCINES Completed 10/11/2002, 01/08/2002, 2001 HIB VACCINES Completed 05/22/2003, 05/0 09/2002, 04/19/2002, Additional history exists MENINGOCOCCAL VACCINES (ACWY) Aged Out 11/14/2013 No longer eligible based on patient's age to complete this topic HPV VACCINES Completed 12/19/2014, 11/14/2013 HEPATITIS B SCREENING Completed 11/25/2021 HEPATITIS C SCREENING Completed 11/25/2021, 022 HEPATITIS A VACCINES Aged Out No long er eligible based on patient's age to complete this topic Medical Devices Not on file Procedures Procedure Name Priority Date/Time Associated Diagnosis Comments ECG 12-LEAD STAT 04/03/2024 8:46 PM EST URINE SEDIMENT STAT 04/03/2024 7:54 PM EST URINALYSIS W/REFLEX URINE CULTURE STAT 04/03/2024 7:54 PM EST URINE CULTURE Routine 04/03/2024 7:54 PM EST MAGNESIUM STAT 04/03/2024 7:41 PM EST LIPASE STAT 04/03/2024 7:41 PM EST LFTS (HEPATIC PANEL) STAT 04/03/2024 7:41 PM EST HCG, SERUM QUALITATIVE STAT 7:41 PM EST BASIC METABOLIC PANEL STAT 04/03/2024 7:41 PM EST CBC AND DIFFERENTIAL STAT 04/03/2024 7:41 PM EST POCT GLUCOSE STAT 04/03/2024 7:33 PM EST POCT GLUCOSE Routine 04/03/2024 7:29 PM EST COVID PANDEMIC RESPIRATORY VIRAL ORDER (PRO) STAT 04/03/2024 7:27 PM EST OUTSIDE LAB Routine 03/14/2024 12:40 PM EST OUTSIDE IMAGING Routine 03/14/2024 12:38 PM EST OUTSIDE LAB Routine 03/14/2024 10:27 AM EST COMPREHENSIVE METABOLIC PANEL Routine 03/14/2024 10:27 AM EST CHLAMYDIA/GC PCR Routine 10/19/2023 12:1 4 PM EDT HM PAP SMEAR FOR RESULT ENTRY ONLY Routine 01/07/2023 HEPATITIS C ANTIBODY, QUALITATIVE Routine 11/25/2021 10:36 AM EDT Need for hepatitis C screening test Pauciarticular juvenile arthritis HEPATITIS B SURFACE ANTIGEN Routine 11/25/2021 10:36 AM EDT 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 Months or Most Recently Relevant to Health Maintenance Results * ECG 12-LEAD (04/03/2024 8:46 PM EST) Ventricular Rate EKG/MIN 126 BPM [facility] Atrial Rate 126 BPM [facility] NC Interval 128 ms [facility] QRS Duration 88 ms [facility] QT Interval 326 ms [facility] QTC Interval 472 ms [facility] P Kinsey 86 degrees [facility] R Wave Kinsey 108 degrees [facility] T Wave Kinsey 43 degrees [facility] 04/03/2024 8:46 PM EST 04/04/2024 12:23 PM EST Narrative [facility] - 04/04/2024 12:23 PM EST Sinus tachycardia Right atrial enlargement Rightward axis Pulmonary disease pattern Nonspecific ST abnormality Abnormal ECG No previous ECGs available Confirmed by Oswaldo Bolden ([id number]) on 04/04/2024 12:23:26 PM Laci Hotl MD ECG ORDERABLES [facility] * (ABNORMAL) Urinalysis w/reflex Urine Culture (04/03/2024 7:54 PM EST) COLOR Yellow Yellow [facility] CLARITY CLOUDY [facility] GLUCOSE Negative Negative [facility] BILI 1+(A) Negative [facility] KETONES Trace(A) Negative [facility] SPECIFIC GRAVITY 1.020 1.005 - 1.030 [facility] BLOOD 3+(A) Negative [facility] PH 6.5 5.0 - 8.0 [facility] Protein-UA 1+(A) Negative [facility] NITRITE Negative Negative [facility] Leukocyte esterase, ur Negative Negative [facility] Urine (Urine) 04/03/2024 7:5 4 PM EST 04/03/2024 8:01 PM EST Rafael Flores MD URINE ORDERABLES Performing Organization Address City/[facility]/ZIP Co de Phone Number [address] [address] * (ABNORMAL) Urine sediment (04/03/2024 7:54 PM EST) WBC 11-20(A) NONE SEEN /hpf [facility] RBC 3-5(A) NONE SEEN /hpf [facility] URINE EPITHELIAL 5-10(A) NONE SEEN [facility] MUCUS 3+(A) NONE SEEN /hpf [facility] BACTERIA 2+(A) NONE SEEN /hpf [facility] 04/03/2024 7:54 PM EST 04/03/2024 8:01 PM EST Rafael Flores MD URINE ORDERABLES Performing Organization Address City/[facility]/ZIP Co de Phone Number [address] [address] * HCG, serum qualitative (04/03/2024 7:41 PM EST) HCG, QUALITATIVE Negative Negative IU/L [facility] Blood 04/03/2024 7:41 PM EST 04/03/2024 7:44 PM EST Rafael Flores MD LAB BLOOD ORDERA BLES Performing Organization Address City/[facility]/ZIP Co de Phone Number [address] [address] * (ABNORMAL) LFTs (hepatic panel) (04/03/2024 7:41 PM EST) ALKALINE PHOSPHATASE 76 39 - 117 U/L [facility] TOTAL BILIRUBIN 1.3(H) 0.0 - 1.2 mg/dL [facility] DIRECT BILIRUBIN 0.4(H) 0.0 - 0.2 mg/dL [facility] Bilirubin (Indirect) 0.9 0 - 1.5 mg/dL [facility] AST 16 0 - 37 U/L [facility] ALT 6 0 - 40 U/L [facility] TOTAL PROTEIN 9.4(H) 6.5 - 8.0 g/dL [facility] ALBUMIN 4.7 3.9 - 4.8 g/dL [facility] GLOBULIN 4.7 1 - 4.8 g/dL [facility] A/G Ratio 1.00 1.00 - 4.80 RATIO [facility] Blood 04/03/2024 7:41 PM EST 04/03/2024 7:44 PM EST Rafael Flores MD LAB BLOOD ORDERA BLES [facility] [address] [place] [address] * (ABNORMAL) CBC and differential (04/03/2024 7:41 PM EST) WBC 9.06 4.00 - 11.00 K/uL [facility] RBC 5.46(H) 4.00 - 5.20 M/uL [facility] HGB 15.8 12.0 - 16.0 g/dL [facility] HCT 44.5 36.0 - 46.0 % [facility] PLT 469(H) 150 - 450 K/uL [facility] MCV 81.5 80.0 - 100.0 fL [facility] MCH 28.9 27.0 - 31.0 pg [facility] MCHC 35.5 32.0 - 36.0 g/dL [facility] RDW 15.1(H) 11.5 - 14.5 % [facility] MPV 8.4 8.4 - 12.0 fL [facility] NRBC 0.00 0.00 /100 WBCs [facility] ABSOLUTE NRBC 0.00 0.00 K/uL [facility] DIFF METHOD Auto [facility] NEUTS 53.1 48.0 - 76.0 % [facility] LYMPHS 32.2 18.0 - 41.0 % [facility] MONOS 13.1(H) 4.0 - 11.0 % [facility] EOS 1.1 0.0 - 5.0 % [facility] BASOS 0.3 0.0 - 1.5 % [facility] Granulocytes, immature (%) 0.2 0.0 - 0.9 % [facility] ABSOLUTE NEUTS 4.80 1.92 - 7.60 K/uL [facility] ABSOLUTE LYMPHS 2.92 0.72 - 4.10 K/uL [facility] ABSOLUTE MONOS 1.19(H) 0.16 - 1.10 K/uL [facility] ABSOLUTE EOS 0.10 0.00 - 0.50 K/uL [facility] ABSOLUTE BASOS 0.03 0.00 - 0.15 K/uL [facility] Granulocytes, immature 0.02 0.00 - 0.09 K/uL [facility] Blood 04/03/2024 7:41 PM EST 04/03/2024 7:44 PM EST Rafael Flores MD LAB BLOOD ORDERA BLES [address] [address] * Magnesium (04/03/2024 7:41 PM EST) MAGNESIUM 2.3 1.6 - 2.6 mg/dL [facility] 04/03/2024 7:41 PM EST 04/03/2024 7:44 PM EST Rafeal Flores MD LAB BLOOD ORDERA BLES [address] [address] * (ABNORMAL) Lipase (04/03/2024 7:41 PM EST) LIPASE 14(L) 16 - 63 U/L [facility] Blood 04/03/2024 7:41 PM EST 04/03/2024 7:44 PM EST Rafael Flores MD LAB BLOOD ORDERA BLES [address] [address] * (ABNORMAL) Basic metabolic panel (04/03/2024 7:41 PM EST) SODIUM 128(L) 133 - 146 mmol/L [facility] CHLORIDE 81(L) 96 - 108 mmol/L [facility] POTASSIUM 2.8(L) 3.3 - 5.1 mmol/L [facility] CO2 30 21 - 35 mmol/L [facility] BUN 9 6 - 19 mg/dL [facility] CREATININE 0.70 0.5 - 1.5 mg/dL [facility] GLUCOSE 114(H) 70 - 99 mg/dL [facility] CALCIUM 10.7(H) 8.4 - 10.3 mg/dL [facility] EGFR >120 >59 mL/min/1.7 3m2 [facility] Comment:Estimated glomerular filtration rate calculated using the CKD-EPI refit equation. ANION GAP 20 10 - 20 mmol/L [facility] Blood 04/03/2024 7:41 PM EST 04/03/2024 7:44 PM EST Rafael Floers MD LAB BLOOD ORDERA BLES Performing Organization Address City/[facility]/ZIP Co de Phone Number [address] [address] * (ABNORMAL) POCT Glucose (04/03/2024 7:33 PM EST) Glucose 113(A) 70 - 100 mg/dL Rafael Flores MD POINT OF CARE TE ST ORDERABLES * (ABNORMAL) POCT Glucose (04/03/2024 7:29 PM EST) Glucose, POCT 113(H) 70 - 100 mg/dL [facility] 04/03/2024 7:29 PM EST 04/03/2024 7:34 PM EST Unknown Unknown MD POINT OF CARE TEST O RDERABLES Performing Organization Address [facility] Co de Phone Number [address] [address] * COVID Pandemic Respiratory Viral Order (PRO) (04/03/2024 7:27 PM EST) Test Ordered COVID, Flu has been ordered [facility] Specimen Source/Descriptio n NASOPHARYNGEAL SWAB [facility] Influenza A PCR Not Detected Not Detected [facility] Influenza B PCR Not Detected Not Detected [facility] SARS-CoV 2 (COVID-19) PCR Not Detected Not Detected [facility] Comment: SARS-CoV-2 not detected Negative results do not preclude SARS-CoV-2 infection and should not be used as the sole basis for patient management decisions. Negative results must be combined with clinical observations, patient history, and epidemiological information. Other (Nasopharyngeal swab) 04/03/2024 7:27 PM EST 04/03/2024 7:35 PM EST Rafael Flores MD BODY FLUIDS AND STOOLS ORDERABLES Performing Organization Address [facility] Co de Phone Number [address] [address] * Outside Lab (03/14/2024 12:40 PM EST) Only the most recent of2 resultswithin the time period is included. Historical Provider LAB BLOOD ORDERAB LES * Outside Imaging Report Only (03/14/2024 12:38 PM EST) Historical Provider IMG XR CHEST * (ABNORMAL) Comprehensive metabolic panel (03/14/2024 10:27 AM EST) Sodium - External 134 128 - 145 Potassium - External 3.5(A) 3.6 - 5.1 Chloride - External 99 98 - 108 CO2 - External 31 18 - 33 BUN - External 9 7 - 22 Creatinine - External 0.6 0.6 - 1.2 Glucose - External 83 73 - 118 Albumin - External 4.1 3.5 - 5.5 Protein - External 6.5 6.4 - 8.1 Calcium - External 9.8 8.0 - 10.3 Alkaline Phosphatase - External 30(A) 42 - 141 Bilirubin, total - External 0.6 0.2 - 1.6 AST - External 24 11 - 38 ALT - External 10 10 - 47 Globulin - External eGFR - External 130(A) > - 60 Anion Gap - External 4 4 - 14 03/14/2024 10:2 7 AM EST Historical Provider LAB BLOOD ORDERAB LES * (ABNORMAL) CHLAMYDIA/GC PCR (10/19/2023 12:14 PM EDT) Pathologist [facility] C. trachomatis DNA DETECTED(A) NEG [facility] Comment:Genexpert Amplified PCR GC rRNA NOT DETECTED [facility]G [facility] Comment:Genexpert Amplified PCR 10/19/2023 12:1 4 PM EDT 10/19/2023 1:08 PM EDT Judith SIMS LAB BLOOD ORDERABLES [facility] [address] [place] [id number] [phone] * PAP SMEAR FOR RESULT ENTRY ONLY (01/07/2023) Pathologist [facility] Pap smear LGSIL Historical Provider MD SUSAN PUENTE E * Hepatitis C antibody, qualitative (11/25/2021 10:36 AM EDT) Pathologist [facility] HCV ANTIBODY Non-Reacti ve Non-Reacti ve [facility] Blood 11/25/2021 10:3 6 AM EDT 11/25/2021 11:01 AM EDT Lester Ford MD LAB BLOOD ORDERABLES [address] * Hepatitis B surface antigen (11/25/2021 10:36 AM EDT) HBV SURFACE ANTIGEN Non-Reacti ve Non-Reacti ve [facility] Blood 11/25/2021 10:3 6 AM EDT 11/25/2021 11:01 AM EDT Lester Ford MD LAB BLOOD ORDERABLES Performing Organization Address City/[facility] Co de Phone Number [address] from Last 3 Months or Most Recently Relevant to Health Maintenance Additional Health Concerns Infection Onset Date Last Indicated CoV-Risk 04/03/2024 04/03/2024 Care Teams Cotton Farmer Relationship Specialty Start Date End Date Maye Avila MD [address] [place] [address] [email or web address] PCP - General Internal Medicine 06/13/23 Honey Pollock PA-C [email or web address] Physician Command Center Officer 09/27/22 Lester Covington MD [email or web address] [email or web address] 09/27/22 Additional Source Comments The information contained in this document represents components of the legal health record. It is not the complete legal health record.[facility]
--- OUTSIDE RECORDS SUMMARY | 2024-04-04 20:00 | XMS_ITS | Encounter Summary ---
Author Organization Roseanne alvarez Address [address] [place] [address] Care Team Providers Care Wax Room Supervisor Name Role Phone Maye Avila MD Primary Care Provider [phone] Reason for Visit * Reason Onset Date Comments PAP TRACKING ABSALOM 04/02/2024 Encounter Details Date Type Department Care Team (Late st Contact Info) Description 04/02/[address] [address] Celine Can RN PAP TRACKING ABSALOM Social History Tobacco Use Types Packs/Day Years Used Date Smoking Tobacco: Never Assessed Comments Unknown Sex and Gender Information Value Date Recorded Sex Assigned at Not on file Legal Sex Female 12:59 PM EDT Gender Identity Not on file Sexual Orientation Not on file documented as of this encounter Miscellaneous Notes * Telephone Encounter - Celine Can RN - 04/02/2024 4:22 PM EST Celine Can 02/02/2023 11:25:38 >01/07/23 pap is LGSIL--per tel encounter- needs rpt pap in 1 yr-01/2024 ABOVE INFORMATION ENTERED FROM ECLINICAL 04/02/24 04/02/24--letter printed and mailed to the patient to call and schedule rpt pap. Pap was due 01/2024 documented in this encounter Plan of Treatment Not on file documented as of this encounter Visit Diagnoses Not on filedocumented in this encounter Care Teams Wax Room Supervisor Relationship Specialty Start Date End Date Maye Avila MD PCP - General 02/10/23 documented as of this encounter
--- OUTSIDE RECORDS SUMMARY | 2024-04-04 20:00 | XMS_ITS | Encounter Summary ---
Author Organization [facility] Address [phone] [facility] [place] [address] Care Team Providers Care Server Name Role Phone Honey Pollock PA-C Unavailable + [phone] Lester Covington MD Unavailable Maye Avila MD Primary Care Provider [phone] Barbara Wilks MD Primary Care Provider Maye Avila MD Primary Care Provider [phone] Barbara Wilks MD Primary Care Provider Boo Aroryo LCSW Unavailable [phone] Maye Avila MD Primary Care Provider [phone] Maye Melton MD, MSc Unavailable + Jenifer Rock RN Unavailable + Harsh De La Rosa Unavailable + Sravanthi Trinidad Unavailable + Encounter Details Date Type Department Care Team (Late st Contact Info) Description 01/25/2023 Procedure Pass [facility] Physicians - Endoscopy - [place] [address] [place] [address] Social History Tobacco Use Types Packs/Day Years Used Date Smoking Tobacco: Never Smokeless Tobacco: Never Alcohol Use Standard Drinks/Week Comments Not Currently 0 (1 standard drink = 0.6 oz pur e alcohol) Child or Family Care Answer Date Record ed Do you have problems with on e of the following making it difficult for you to work, study, or receive health care? No 07/06/2022 Education Answer Date Recorded Are you interested in help w ith more adult education (for example, completing high school, GED, job training, learning the [place] language, technical skills, or developing parenting skills)? Yes 07/06/2022 Are you concerned about your learning, performance, or behavior in school? No 07/06/2022 Yes 07/06/2022 Yes 07/06/2022 Food Answer Date Recorded Within the past 6 months we worried whether our food would run out before we got money to buy more. Never True 07/06/2022 Within the past 6 months the food we bought just didn't last and we didn't have enough money to get more. Never True Residential Stability Answer Date Recor ded What is your housing situation today? I have ba sing 07/06/2022 How many times have you moved in the past 12 tue th? Two or more times 07/06/2022 Paying for Meds Answer Date Recorded Do you have trouble paying for medicines? No 07/06/2022 Paying Utility Bills Answer Date Record ed Do you have trouble paying your heating or elect ricity bill? No 07/06/2022 Transportation Answer Date Recorded Has the lack of transportati on kept you from medical appointments or from getting medications? No 07/06/2022 Unemployment Answer Date Recorded Are you currently unemployed or working on a part-time or temporary basis, and looking for work? No 04/30/2022 Digital Access Answer Date Recorded No 07/06/2022 Yes 07/06/2022 Do you have reliable internet access at home? Ye s 07/06/2022 Do you have a device (e.g., phone, tablet, computer) with a working camera? Yes 07/06/2022 SNAP & WIC Answer Date Recorded Do you receive benefits from SNAP (the Supplemental Nutrition Assistance Program) or the Food Stamp Program? Yes 07/06/2022 SNAP is a free program, interested in learning m ore? Not on file 07/06/2022 Can we help you enroll in SNAP? Not on file 07/06/2022 Benefits received from WIC? Not on file 06/09 WIC is a free program, interested in learning mo re? Not on file 07/06/2022 Can we help you enroll in [place]? Not on file 0 07/06/2022 Sex and Gender Information Value Date Recorded Sex Assigned at Female 06/02/2020 3:33 PM EDT Gender Identity Female 06/02/2020 3:33 PM EDT Sexual Orientation Bisexual 09/15/2023 11 :02 AM EDT Sexual Orientation Lesbian or Garcia 09/15/2023 11 :02 AM EDT documented as of this encounter Plan of Treatment Upcoming Encounters Date Type Department Care Team (Late st Contact Info) Description 04/11/2024 2:30 PM EST Office Visit [facility] [address] [place] [address] Gay Torrez MD [address] [place] [address] 10/04/2024 2:20 PM EDT Appointment [facility] [address] [place] [phone] Unknown, Unknown, Maye Abdalla MD [address] [place] [address] documented as of this encounter Visit Diagnoses Not on filedocumented in this encounter Additional Health Concerns Infection Onset Date Last Indicated Resolved Time CoV-Risk 12/26/2023 12/26/2023 01/06/2024 1:21 AM EST CoV-Risk 04/03/2024 04/03/2024 Assessment Noted Time PHQ-9 Depression Total Score: 9 07/07/19 23 3:12 PM EDT PHQ-2 Depression Total Score: 2 07/07/19 23 3:12 PM EDT documented as of this encounter Care Teams Server Relationship Specialty Start Date End Date Maye Avila MD [address] [place] [address] [email or web address] PCP - General Internal Medicine 01/20/23 02/27/23 Barbara Wilks MD [address] [place] [phone] [email or web address] PCP - General Internal Medicine 02/28/23 03/02/23 Maye Avila MD [address] [place] [address] [email or web address] PCP - General Internal Medicine 03/03/23 04/10/23 Barbara Wilks MD [address] [place] [phone] [email or web address] PCP - General Internal Medicine 04/11/23 06/12/23 Maye Avila MD [address] [place] [id number] [email or web address] PCP - General Internal Medicine 06/13/23 Honey Pollock PA-C [email or web address] Physician Rigger Helper 09/27/22 Lester Covington MD Rheumatology 09/27/22 Boo Arroyo, [address] [address] [email or web address] Work 04/14/23 05/12/23 Maye Melton MD, MSc [address] [place] [address] [email or web address] Label Press OperatorCar Detailer Medicine 06/27/23 07/17/23 Jenifer Rock RN [address] [place] [address] [email or web address] Label Press Operator 06/27/23 4 Harsh De La Rosa [address] [place] [address] [email or web address] Community Health Worker 06/27/23 07/17/23 Sravanthi Trinidad [address] [place] [address] [email or web address] Unit Secretary 06/27/23 07/17/23 documented as of this encounter Additional Source Comments The information contained in this document represents components of the legal health record. It is not the complete legal health record.[facility]
--- OUTSIDE RECORDS SUMMARY | 2024-04-04 20:00 | XMS_ITS | Encounter Summary ---
Author Organization [facility] Address [phone] [facility] [place] [address] Care Team Providers Care Computer Operations Manager Name Role Phone Honey Pollock PA-C Unavailable [phone] Lester Covington MD Unavailable Maye Avila MD Primary Care Provider [phone] Reason for Visit * Reason Comments Nausea/Vomiting Encounter Details Date Type Department Care Team (Late st Contact Info) Description 04/03/2024 8:58 PM EST - 04/03/2024 11:13 PM EST Emergency [facility] [address] [place] [address] Rafael Flores MD [address] [place] [address] [email or web address] Disposition: Home or Self Care Social History Tobacco Use Types Packs/Day Years [...] high school, GED, job training, learning the Mauritanian language, technical skills, or developing parenting skills)? [...] your housing situation today? I am stayi ng with others 09/16/2023 How many times have [...] AM EDT documented as of this encounter Last Filed Vital Signs Vital Sign Reading [...] Mass Index 15.79 04/03/2024 7:22 PM EST documented in this encounter Discharge Instructions * Discharge Instructions* Rafael Flores MD - 04/03/2024 10:59 PM EST You can try using the Zofran as needed for nausea. If you have persistent vomiting, or worsening pain, fever, new symptoms, please return for reevaluation. Otherwise, follow-up with your PCP. Your potassium levels were low, this should improve as long as you are vomiting stops. See attached information for higher potassium foods. * Attachments The following attachments cannot be sent through Care Everywhere. * Nausea and Vomiting (Mauritanian) * High Potassium Foods: General Info (Mauritanian) documented in this encounter Medications at Time of Discharge Medication Sig Dispensed Refills Start Date End Date fluticasone propionate (FLONASE) 50 mcg/actuation nasal sprayIndications:Allergic rhinitis, unspecified seasonality, unspecified trigger 2 sprays by Nasal route daily. 11.1 mL 03/21/2024 ondansetron (ZOFRAN) 8 MG tablet Take 1 tablet (8 mg total) by mouth every 8 (eight) hours as needed for nausea. 90 tablet 01/17/2024 ondansetron (ZOFRAN-ODT) 4 MG disintegrating tablet Take 1 tablet (4 mg total) by mouth every 8 (eight) hours as needed for nausea. 10 tablet 04/03/2024 rimegepant (NURTEC) 75 mg tablet Take 1 tablet (75 mg total) by mouth every other day. 8 tablet 03/21/2024 tacrolimus (PROTOPIC) 0.1 % ointment Apply topically 2 (two) times a day. Apply thin layer to face X 2 weeks, 30 g 1 01/17/2024 documented as of this encounter ED Notes * Pam Orozco RN - 04/03/2024 11:11 PM EST ED Discharge Nursing Note Patient educated at time of discharge. No questions at this time. Ambulated out of ED with steady gait. * Preethi Granger RN - 04/03/2024 8:38 PM EST ED Rapid Assessment Nursing Note S/O came to window to state patient having severe abdominal cramping and very uncomfortable, EKG ordered, updated chargemaster specialist Becky on patient's condition. * Preethi Granger RN - 04/03/2024 7:21 PM EST Patient presents reporting nausea and vomiting since last , diffuse all over abdominal pain, cannot keep anything down , patient awake, alert and oriented, speaking clearly, breathing equal and unlabored, pale and appears uncomfortable. * Rafael Flores MD - 04/03/2024 7:15 PM EST Chief Complaint Chief Complaint Patient presents with Nausea/Vomiting History of Present Illness The patient, Dusty Mahmood,is a 23 y.o. female who presents for evaluation of Nausea/Vomiting The patient reports that she began experiencing vomiting about 5 days ago, has had frequent vomiting since then, has had small amount of diarrhea, when it started it seemed like it was in relation jaki anxiety attack, she has had episodes like this of intractable vomiting, she is not sure exactly why this happens in the past. Unless otherwise specified, I have reviewed and agree with the triage and nursing notes. ROS A ten point review of systems was negative except what was noted in the HPI. Review of Systems Past Medical History Past Medical History: Diagnosis Date Anxiety Arthritis rheumatoid juvenile arthritis Chlamydia Depressive disorder Gastroesophageal reflux disease H. pylori infection 08/12/2022 EGD 07/2022 Lymphadenopathy 02/10/2015 Chronic left AC node, seen by surgery who did not biopsy, labs reassuring 09/2018-still present, notgrowing per patient, mobile, nontender Trichomoniasis 11/06/2021 Past Surgical History Past Surgical History: Procedure Laterality Date ESOPHAGOGASTRODUODENOSCOPY N/A 01/25/2023 Performed by Shreya Bartlett MD at [facility] Endoscopy ESOPHAGOGASTRODUODENOSCOPY N/A 08/06/2022 Performed by Shreya Bartlett MD at [facility] Endoscopy Home Medications Prior to Admission medications Medication Sig fluticasone propionate (FLONASE) 50 mcg/actuation nasal spray 2 sprays, Nasal, Daily ondansetron (ZOFRAN) 8 MG tablet 8 mg, Oral, Every 8 hours PRN ondansetron (ZOFRAN-ODT) 4 MG disintegrating tablet 4 mg, Oral, Every 8 hours PRN rimegepant (NURTEC) 75 mg tablet 75 mg, Oral, Every other day tacrolimus (PROTOPIC) 0.1 % ointment Topical, 2 times daily, Apply thin layer to face X 2 weeks, Allergies No Known Allergies Social and Family History Social History Tobacco Use Smoking status: Never Smokeless tobacco: Never Substance Use Topics Alcohol use: Not Currently Social History Substance and Sexual Activity Drug Use Yes Types: Marijuana No family history on file. Physical Exam Vital Signs: ED Triage Vitals [04/03/241921] Encounter Vitals Group BP 112/75 Systolic BP Percentile Diastolic BP Percentile Heart Rate (!) 122 Respiratory Rate 16 Temperature 36.6 ??C (97.9 ??F) Temp Source Temporal SpO2 100 % Weight 92 lb Height 5' 4 Head Circumference Peak Flow Pain Score Pain Loc Pain Education Exclude from Growth Chart Physical Exam Vitals and nursing note reviewed. Constitutional: Appearance: She is well-developed. Comments: Thin young adult female, appears uncomfortable, anxious. HENT: Head: Normocephalic and atraumatic. Mouth/Throat: Mouth: Mucous membranes are moist. Pharynx: Oropharynx is clear. Eyes: Conjunctiva/sclera: Conjunctivae normal. Pupils: Pupils are equal, round, and reactive to light. Cardiovascular: Rate and Rhythm: Regular rhythm. Tachycardia present. Heart sounds: Normal heart sounds. Pulmonary: Effort: Pulmonary effort is normal. No respiratory distress. Breath sounds: Normal breath sounds. Abdominal: Palpations: Abdomen is soft. Tenderness: There is abdominal tenderness. Comments: Generalized tenderness without guarding or rebound. Musculoskeletal: General: Normal range of motion. Cervical back: Normal range of motion and neck supple. Skin: General: Skin is warm and dry. Neurological: Mental Status: She is alert and oriented to person, place, and time. Psychiatric: Comments: anxious Laboratory Testing Results for orders placed or performed during the hospital encounter of 04/03/24 POCT Glucose Result Value Ref Range Glucose, POCT 113 (H) 70 - 100 mg/dL POCT Glucose Result Value Ref Range Glucose 113 (*) 70 - 100 mg/dL Magnesium Result Value Ref Range MAGNESIUM 2.3 1.6 - 2.6 mg/dL Urine sediment Result Value Ref Range WBC 11-20 (*) NONE SEEN /hpf RBC 3-5 (*) NONE SEEN /hpf URINE EPITHELIAL 5-10 (*) NONE SEEN MUCUS 3+ (*) NONE SEEN /hpf BACTERIA 2+ (*) NONE SEEN /hpf COVID Pandemic Respiratory Viral Order (PRO) Specimen: Nasopharyngeal swab; Other Result Value Ref Range Test Ordered COVID, Flu has been ordered Specimen Source/Description NASOPHARYNGEAL SWAB Influenza A PCR Not Detected Not Detected Influenza B PCR Not Detected Not Detected SARS-CoV 2 (COVID-19) PCR Not Detected Not Detected Lipase Specimen: Blood Result Value Ref Range LIPASE 14 (L) 16 - 63 U/L LFTs (hepatic panel) Specimen: Blood Result Value Ref Range ALKALINE PHOSPHATASE 76 39 - 117 U/L TOTAL BILIRUBIN 1.3 (H) 0.0 - 1.2 mg/dL DIRECT BILIRUBIN 0.4 (H) 0.0 - 0.2 mg/dL Bilirubin (Indirect) 0.9 0 - 1.5 mg/dL AST 16 0 - 37 U/L ALT 6 0 - 40 U/L TOTAL PROTEIN 9.4 (H) 6.5 - 8.0 g/dL ALBUMIN 4.7 3.9 - 4.8 g/dL GLOBULIN 4.7 1 - 4.8 g/dL A/G Ratio 1.00 1.00 - 4.80 RATIO HCG, serum qualitative Specimen: Blood Result Value Ref Range HCG, QUALITATIVE Negative Negative IU/L Urinalysis w/reflex Urine Culture Specimen: Urine Result Value Ref Range COLOR Yellow Yellow CLARITY CLOUDY GLUCOSE Negative Negative BILI 1+ (*) Negative KETONES Trace (*) Negative SPECIFIC GRAVITY 1.020 1.005 - 1.030 BLOOD 3+ (*) Negative PH 6.5 5.0 - 8.0 Protein-UA 1+ (*) Negative NITRITE Negative Negative Leukocyte esterase, ur Negative Negative Basic metabolic panel Specimen: Blood Result Value Ref Range SODIUM 128 (L) 133 - 146 mmol/L CHLORIDE 81 (L) 96 - 108 mmol/L POTASSIUM 2.8 (L) 3.3 - 5.1 mmol/L CO2 30 21 - 35 mmol/L BUN 9 6 - 19 mg/dL CREATININE 0.70 0.5 - 1.5 mg/dL GLUCOSE 114 (H) 70 - 99 mg/dL CALCIUM 10.7 (H) 8.4 - 10.3 mg/dL EGFR >120 >59 mL/min/1.73m2 ANION GAP 20 10 - 20 mmol/L CBC and differential Specimen: Blood Result Value Ref Range WBC 9.06 4.00 - 11.00 K/uL RBC 5.46 (H) 4.00 - 5.20 M/uL HGB 15.8 12.0 - 16.0 g/dL HCT 44.5 36.0 - 46.0 % PLT 469 (H) 150 - 450 K/uL MCV 81.5 80.0 - 100.0 fL MCH 28.9 27.0 - 31.0 pg MCHC 35.5 32.0 - 36.0 g/dL RDW 15.1 (H) 11.5 - 14.5 % MPV 8.4 8.4 - 12.0 fL NRBC 0.00 0.00 /100 WBCs ABSOLUTE NRBC 0.00 0.00 K/uL DIFF METHOD Auto NEUTS 53.1 48.0 - 76.0 % LYMPHS 32.2 18.0 - 41.0 % MONOS 13.1 (H) 4.0 - 11.0 % EOS 1.1 0.0 - 5.0 % BASOS 0.3 0.0 - 1.5 % Granulocytes, immature (%) 0.2 0.0 - 0.9 % ABSOLUTE NEUTS 4.80 1.92 - 7.60 K/uL ABSOLUTE LYMPHS 2.92 0.72 - 4.10 K/uL ABSOLUTE MONOS 1.19 (H) 0.16 - 1.10 K/uL ABSOLUTE EOS 0.10 0.00 - 0.50 K/uL ABSOLUTE BASOS 0.03 0.00 - 0.15 K/uL Granulocytes, immature 0.02 0.00 - 0.09 K/uL Radiology Testing No orders to display ED Medication from 04/03/2024 1915 to 04/04/2024 0117 Date/Time Order Dose Route Action Action by Comments 04/03/20241926 EST ondansetron (ZOFRAN-ODT) disintegrating tablet 4 mg 4 mg Oral Given Preethi Granger, [place] -- 04/03/2024 2216 EST sodium chloride 0.9% bolus 1,000 mL 1,000 mL Intravenous New Bag Pam Orozco RN -- 04/03/2024 2303 EST sodium chloride 0.9% bolus 1,000 mL 0 mL Intravenous Stopped Pam Orozco RN -- 04/03/20242215 EST ketorolac (TORADOL) injection 15 mg 15 mg Intravenous Given Pam Orozco, [place] -- 04/03/2024 221 EST metoclopramide HCl (REGLAN) 10 mg in sodium chloride 0.9% 50 mL IVPB 10 mg Intravenous New Bag Pam Orozco RN -- 04/03/2024 230 EST metoclopramide HCl (REGLAN) 10 mg in sodium chloride 0.9% 50 mL IVPB 0 mg Intravenous Stopped Pam Orozco RN -- 04/03/2024 230 EST potassium chloride (MICRO-K) ER capsule 40 mEq 40 mEq Oral Given Pam Orozco RN -- [facility] MDM The patient presents with several days of nausea and vomiting, it seems like she has some kind of cyclic vomiting syndrome. She was given Toradol and Reglan, she had some broth, she is stating that she feels better and would like to be discharged home. I think it is reasonable to hold off on imaging at this time, we discussed indications for which she should return. Clinical Impressions as of 04/04/24116 Nausea and vomiting, unspecified vomiting type Clinical Impression Diagnosis Description Comment Final diagnosis Nausea and vomiting, unspecified vomiting type Nausea and vomiting, unspecified vomiting type -- Disposition: Home Rafael Flores MD 04/04/24116 documented in this encounter Plan of Treatment Upcoming Encounters Date Type Department Care Team (Late st Contact Info) Description 04/11/2024 2:30 PM EST Office Visit [facility] [address] [facility] [address]it [address] [place] [phone] Gay Torrez MD [address] [facility] [address] [place] [phone] 10/04/2024 2:20 PM EDT Appointment [address] [phone] Unknown, Unknown, Maye Abdalla MD [address] [place] [phone] Pending Results Name Type Priority Associated Diagnoses Date /Time Urine Culture Microbiology Routine 7:54 PM EST documented as of this encounter Procedures Procedure Name Priority Date/Time Associated Diagnosis Comments ECG 12-LEAD STAT 04/03/2024 8:46 PM EST URINALYSIS W/REFLEX URINE CULTURE STAT 04/03/2024 7:54 PM EST URINE CULTURE Routine 04/03/2024 7:54 PM EST URINE SEDIMENT STAT 04/03/2024 7:54 PM EST HCG, SERUM QUALITATIVE STAT 04/03/2024 7:41 PM EST LFTS (HEPATIC PANEL) STAT 04/03/2024 7:41 PM EST CBC AND DIFFERENTIAL STAT 04/03/2024 7:41 PM EST MAGNESIUM STAT 04/03/2024 7:41 PM EST LIPASE STAT 04/03/2024 7:41 PM EST BASIC METABOLIC PANEL STAT 04/03/2024 7:41 PM EST POCT GLUCOSE STAT 04/03/2024 7:33 PM EST POCT GLUCOSE Routine 04/03/2024 7:29 PM EST COVID PANDEMIC RESPIRATORY VIRAL ORDER (PRO) STAT 04/03/2024 7:27 PM EST documented in this encounter Results * ECG 12-LEAD (04/03/2024 8:46 PM EST) Ventricular Rate EKG/MIN 126 BPM [facility] Atrial Rate 126 BPM [facility] HI Interval 128 ms [facility] QRS Duration 88 ms [facility] QT Interval 326 ms [facility] QTC Interval 472 ms [facility] P Rhame 86 degrees [facility] R Wave Rhame 108 degrees [facility] T Wave Rhame 43 degrees [facility] 04/03/2024 8:46 PM EST 04/04/2024 12:23 PM EST Narrative [facility] - 04/04/2024 12:23 PM EST Sinus tachycardia Right atrial enlargement Rightward axis Pulmonary disease pattern Nonspecific ST abnormality Abnormal ECG No previous ECGs available Confirmed by Oswaldo Bolden ([id number]) on 04/04/2024 12:23:26 PM Laci Holt MD ECG ORDERABLES [facility] * (ABNORMAL) Urine sediment (04/03/2024 7:54 PM EST) WBC 11-20(A) NONE SEEN /hpf [facility] RBC 3-5(A) NONE SEEN /hpf [facility] URINE EPITHELIAL 5-10(A) NONE SEEN [facility] MUCUS 3+(A) NONE SEEN /hpf [facility] BACTERIA 2+(A) NONE SEEN /hpf [facility] 04/03/2024 7:54 PM EST 04/03/2024 8:01 PM EST Rafael Flores MD URINE ORDERABLES Performing Organization Address [facility] Co de Phone Number [address] [address] * (ABNORMAL) Urinalysis w/reflex Urine Culture (04/03/2024 7:54 PM EST) COLOR Yellow Yellow [facility] CLARITY CLOUDY [facility] GLUCOSE Negative Negative [facility] BILI 1+(A) Negative [facility] KETONES Trace(A) Negative [facility] SPECIFIC GRAVITY 1.020 1.005 - 1.030 [facility] BLOOD 3+(A) Negative [facility] PH 6.5 5.0 - 8.0 [facility] Protein-UA 1+(A) Negative [facility] NITRITE Negative Negative [facility] Leukocyte esterase, ur Negative Negative [facility] Urine (Urine) 04/03/2024 7:5 4 PM EST 04/03/2024 8:01 PM EST Rafael Flores MD URINE ORDERABLES Performing Organization Address [facility] Co de Phone Number [address] [address] * Magnesium (04/03/2024 7:41 PM EST) MAGNESIUM 2.3 1.6 - 2.6 mg/dL [facility] 04/03/2024 7:41 PM EST 04/03/2024 7:44 PM EST Rafael Flores MD LAB BLOOD ORDERA BLES Performing Organization Address City/[facility]/ZIP Co de Phone Number [address] [address] * (ABNORMAL) Lipase (04/03/2024 7:41 PM EST) LIPASE 14(L) 16 - 63 U/L [facility] Blood 04/03/2024 7:41 PM EST 04/03/2024 7:44 PM EST Rafael Flores MD LAB BLOOD ORDERA BLES Performing Organization Address City/[facility]/ZIP Co de Phone Number [address] [address] * (ABNORMAL) LFTs (hepatic panel) (04/03/2024 7:41 PM EST) ALKALINE PHOSPHATASE 76 39 - 117 U/L [facility] TOTAL BILIRUBIN 1.3(H) 0.0 - 1.2 mg/dL [facility] DIRECT BILIRUBIN 0.4(H) 0.0 - 0.2 mg/dL [facility] Bilirubin (Indirect) 0.9 0 - 1.5 mg/dL [facility] AST 16 0 - 37 U/L [facility] ALT 6 0 - 40 U/L [facility] TOTAL PROTEIN 9.4(H) 6.5 - 8.0 g/dL [facility] ALBUMIN 4.7 3.9 - 4.8 g/dL [facility] GLOBULIN 4.7 1 - 4.8 g/dL [facility] A/G Ratio 1.00 1.00 - 4.80 RATIO [facility] Blood 04/03/2024 7:41 PM EST 04/03/2024 7:44 PM EST Rafael Flores MD LAB BLOOD ORDERA BLES Performing Organization Address City/[facility]/ZIP Co de Phone Number [address] [address] * HCG, serum qualitative (04/03/2024 7:41 PM EST) HCG, QUALITATIVE Negative Negative IU/L [facility] Blood 04/03/2024 7:41 PM EST 04/03/2024 7:44 PM EST Rafael Flores MD LAB BLOOD ORDERA BLES Performing Organization Address [facility]/ZIP Co de Phone Number [address] [address] * (ABNORMAL) Basic metabolic panel (04/03/2024 7:41 PM EST) SODIUM 128(L) 133 - 146 mmol/L [facility] CHLORIDE 81(L) 96 - 108 mmol/L [facility] POTASSIUM 2.8(L) 3.3 - 5.1 mmol/L [facility] CO2 30 21 - 35 mmol/L [facility] BUN 9 6 - 19 mg/dL [facility] CREATININE 0.70 0.5 - 1.5 mg/dL [facility] GLUCOSE 114(H) 70 - 99 mg/dL [facility] CALCIUM 10.7(H) 8.4 - 10.3 mg/dL [facility] EGFR >120 >59 mL/min/1.7 3m2 [facility] Comment:Estimated glomerular filtration rate calculated using the CKD-EPI refit equation. ANION GAP 20 10 - 20 mmol/L [facility] Blood 04/03/2024 7:41 PM EST 04/03/2024 7:44 PM EST Rafael Flores MD LAB BLOOD ORDERA BLES Performing Organization Address [facility] Co de Phone Number [address] [address] * (ABNORMAL) CBC and differential (04/03/2024 7:41 PM EST) WBC 9.06 4.00 - 11.00 K/uL [facility] RBC 5.46(H) 4.00 - 5.20 M/uL [facility] HGB 15.8 12.0 - 16.0 g/dL [facility] HCT 44.5 36.0 - 46.0 % [facility] PLT 469(H) 150 - 450 K/uL [facility] MCV 81.5 80.0 - 100.0 fL [facility] MCH 28.9 27.0 - 31.0 pg [facility] MCHC 35.5 32.0 - 36.0 g/dL [facility] RDW 15.1(H) 11.5 - 14.5 % [facility] MPV 8.4 8.4 - 12.0 fL [facility] NRBC 0.00 0.00 /100 WBCs [facility] ABSOLUTE NRBC 0.00 0.00 K/uL [facility] DIFF METHOD Auto [facility] NEUTS 53.1 48.0 - 76.0 % [facility] LYMPHS 32.2 18.0 - 41.0 % [facility] MONOS 13.1(H) 4.0 - 11.0 % [facility] EOS 1.1 0.0 - 5.0 % [facility] BASOS 0.3 0.0 - 1.5 % [facility] Granulocytes, immature (%) 0.2 0.0 - 0.9 % [facility] ABSOLUTE NEUTS 4.80 1.92 - 7.60 K/uL [facility] ABSOLUTE LYMPHS 2.92 0.72 - 4.10 K/uL [facility] ABSOLUTE MONOS 1.19(H) 0.16 - 1.10 K/uL [facility] ABSOLUTE EOS 0.10 0.00 - 0.50 K/uL [facility] ABSOLUTE BASOS 0.03 0.00 - 0.15 K/uL [facility] Granulocytes, immature 0.02 0.00 - 0.09 K/uL [facility] Blood 04/03/2024 7:41 PM EST 04/03/2024 7:44 PM EST Rafael Flores MD LAB BLOOD ORDERA BLES [facility] [address] [place] [address] * (ABNORMAL) POCT Glucose (04/03/2024 7:33 PM EST) Glucose 113(A) 70 - 100 mg/dL Rafael Flores MD POINT OF CARE TE ST ORDERABLES * (ABNORMAL) POCT Glucose (04/03/2024 7:29 PM EST) Glucose, POCT 113(H) 70 - 100 mg/dL [facility] 04/03/2024 7:29 PM EST 04/03/2024 7:34 PM EST Unknown Unknown POINT OF CARE TEST O RDERABLES Performing Organization Address [facility] Co de Phone Number [address] [address] * COVID Pandemic Respiratory Viral Order (PRO) (04/03/2024 7:27 PM EST) Test Ordered COVID, Flu has been ordered [facility] Specimen Source/Descriptio n NASOPHARYNGEAL SWAB [facility] Influenza A PCR Not Detected Not Detected [facility] Influenza B PCR Not Detected Not Detected [facility] SARS-CoV 2 (COVID-19) PCR Not Detected Not Detected [facility] Comment: SARS-CoV-2 not detected Negative results do not preclude SARS-CoV-2 infection and should not be used as the sole basis for patient management decisions. Negative results must be combined with clinical observations, patient history, and epidemiological information. Other (Nasopharyngeal swab) 04/03/2024 7:27 PM EST 04/03/2024 7:35 PM EST Rafael Flores MD BODY FLUIDS AND STOOLS ORDERABLES Performing Organization Address [facility] Co de Phone Number [address] [address] documented in this encounter Visit Diagnoses Diagnosis Nausea and vomiting, unspecified vomiting type- Primary documented in this encounter Administered Medications Inactive Administered Medications - up to 3 most recent administrations Medication Order MAR Action Action Date Dose Rate Site ketorolac (TORADOL) injection 15 mg 15 mg, Intravenous, Once, On Tue04/03/24 at 2200, For 1 dose Given 04/03/2024 10:16 PM EST 15 mg metoclopramide HCl (REGLAN) 10 mg in sodium chloride 0.9% 50 mL IVPB 10 mg, Intravenous, Administer over 30 Minutes, Once, On Tue04/03/24 at 2200, For 1 dose New Bag 04/03/2024 10:16 PM EST 10 mg 100 mL/hr ondansetron (ZOFRAN-ODT) disintegrating tablet 4 mg 4 mg, Oral, Once, On Tue04/03/24 at 1930, For 1 dose, Do not remove from blister until needed. Peel backing off the blister, do not push tablet through. Using dry hands, place tablet on tongue and allow to dissolve. Swallow with saliva. Given 04/03/2024 7:27 PM EST 4 mg potassium chloride (MICRO-K) ER capsule 40 mEq 40 mEq, Oral, Once, On Tue04/03/24 at 2300, For 1 dose, Swallow tablets whole, do not crush or chew. Capsules may be opened and contents sprinkled on a spoonful of applesauce or pudding and should be swallowed immediately without chewing. Microencapsulated tablets may be dissolved in 6 ounces of water, stir and administer immediately. Given 04/03/2024 11:07 PM EST 40 mEq sodium chloride (NS) 0.9 % syringe flush 3 mL 3 mL, Intravenous, As needed, line care, Starting on Tue04/03/24 at 1924, Per Institutional IV Line Care Policy. sodium chloride 0.9% bolus 1,000 mL 1,000 mL, Intravenous, Administer over 30 Minutes, at 2,000 mL/hr, Once, On Tue04/03/24 at 2200, For 1 dose New Bag 04/03/2024 10:16 PM EST 1,000 mL 2000 mL/hr documented in this encounter Active and Recently Administered Medications Times are shown in EST. Scheduled Medication Order 04/01/2024 04/02/2024 04/03/2024 ketorolac (TORADOL) injection 15 mg (COMPLETED) 15 mg, Intravenous, Once, On Tue04/03/24 at 2200, For 1 dose 2215 (Given - Provid er: Pam Orozco RN) metoclopramide HCl (REGLAN) 10 mg in sodium chloride 0.9% 50 mL IVPB (COMPLETED) 10 mg, Intravenous, Administer over 30 Minutes, Once, On Tue04/03/24 at 2200, For 1 dose 2215 (New Bag - Prov ider: Pam Orozco RN)2302 (Stopped - Provider: Pam Orozco RN) ondansetron (ZOFRAN-ODT) disintegrating tablet 4 mg (COMPLETED) 4 mg, Oral, Once, On Tue04/03/24 at 1930, For 1 dose, Do not remove from blister until needed. Peel backing off the blister, do not push tablet through. Using dry hands, place tablet on tongue and allow to dissolve. Swallow with saliva. 1926 (Given - Provid er: Preethi Granger RN) potassium chloride (MICRO-K) ER capsule 40 mEq (COMPLETED) 40 mEq, Oral, Once, On Tue04/03/24 at 2300, For 1 dose, Swallow tablets whole, do not crush or chew. Capsules may be opened and contents sprinkled on a spoonful of applesauce or pudding and should be swallowed immediately without chewing. Microencapsulated tablets may be dissolved in 6 ounces of water, stir and administer immediately. 2306 (Given - Provid er: Pam Orozco RN) sodium chloride 0.9% bolus 1,000 mL (COMPLETED) 1,000 mL, Intravenous, Administer over 30 Minutes, at 2,000 mL/hr, Once, On Tue04/03/24 at 2200, For 1 dose 2215 (New Bag - Prov ider: Pam Orozco RN)2302 (Stopped - Provider: Pam Orozco RN) PRN Medication Order 04/01/2024 04/02/2024 04/03/2024 sodium chloride (NS) 0.9 % syringe flush 3 mL 3 mL, Intravenous, As needed, line care, Starting on Tue04/03/24 at 1924, Per Institutional IV Line Care Policy. documented in this encounter Additional Health Concerns Infection Onset Date Last Indicated Resolved Time CoV-Risk 04/03/2024 04/03/2024 Assessment Noted Time PHQ-9 Depression Total Score: 21 024 10:26 AM EDT PHQ-2 Depression Total Score: 3 10/14/19 24 10:26 AM EDT documented as of this encounter Care Teams Computer Operations Manager Relationship Specialty Start Date End Date Maye Avila MD [address] [place] [address] [email or web address] PCP - General Internal Medicine 06/13/23 Honey Pollock PA-C [email or web address] Physician Filling Hand 09/27/22 Lester Covington MD [email or web address] Rheumatology 09/27/22 documented as of this encounter Additional Source Comments The information contained in this document represents components of the legal health record. It is not the complete legal health record.[facility]
--- OUTSIDE RECORDS SUMMARY | 2024-04-04 20:00 | XMS_ITS | Encounter Summary ---
Author Organization [facility] Address [phone] [facility] [place] [address] Care Team Providers Care Specialty Plant Supervisor Name Role Phone Honey Pollock PA-C Unavailable [phone] Lester Covington MD Unavailable Maye Avila MD Primary Care Provider [phone] Encounter Details Date Type Department Care Team (Late st Contact Info) Description 03/22/2024 Orders Only [facility] - Medical Records - [place] [address] [place] [phone] Provider, MD Adeline [address] [place] [address] Social History Tobacco Use Types Packs/Day Years [...] GED, job training, learning the [place] language, technical skills, or developing parenting skills)? [...] Description 04/11/2024 2:30 PM EST Office Visit [facility] [address] [place] [address] Gay Torrez MD [address] [place] [address] 10/04/2024 2:20 PM EDT Appointment [facility] [address] [place] [address] Unknown, Unknown, Maye Abdalla MD [address] [place] [address] documented as of this encounter Procedures Procedure Name Priority Date/Time Associated Diagnosis Comments OUTSIDE LAB Routine 03/14/2024 12:40 PM EST OUTSIDE IMAGING Routine 03/14/2024 12:38 PM EST documented in this encounter Results * Outside Lab (03/14/2024 12:40 PM EST) Historical Provider LAB BLOOD ORDERAB LES * Outside Imaging Report Only (03/14/2024 12:38 PM EST) Historical Provider IMG XR CHEST documented in this encounter Visit Diagnoses Not on filedocumented in this encounter Additional Health Concerns Infection Onset Date Last Indicated Resolved Time CoV-Risk 04/03/2024 04/03/2024 Assessment Noted Time PHQ-9 Depression Total Score: 21 024 10:26 AM EDT PHQ-2 Depression Total Score: 3 10/14/19 24 10:26 AM EDT documented as of this encounter Care Teams Specialty Plant Supervisor Relationship Specialty Start Date End Date Maye Avila MD [address] [place] [address] PCP - General Internal Medicine 06/13/23 Honey Pollock PA-C [email or web address] Physician Chief Meter Reader 09/27/22 Lester Covington MD [email or web address] Rheumatology 09/27/22 documented as of this encounter Additional Source Comments The information contained in this document represents components of the legal health record. It is not the complete legal health record.[facility]
--- OUTSIDE RECORDS SUMMARY | 2024-04-04 20:00 | XMS_ITS | Encounter Summary ---
Author Organization [facility] Address [phone] [place] [address] Care Team Providers Care Softball Coach Name Role Phone Honey Pollock PA-C Unavailable [phone] Lester Covington MD Unavailable Maye Avila MD Primary Care Provider [phone] Reason for Visit * Reason Onset Date Comments Medication Refill 03/21/2024 Encounter Details Date Type Department Care Team (Late st Contact Info) Description 03/21/2024 Refill [facility] [address] [place] [address] Gay Torrez MD [address] [place] [address] [email or web address] Medication Refill Social History Tobacco Use Types Packs/Day Years [...] high school, GED, job training, learning the [place] language, technical skills, or developing parenting skills)? [...] AM EDT documented as of this encounter Progress Notes * Claudia Vanegas - 03/21/2024 10:56 AM EST rx documented in this encounter Plan of Treatment Upcoming Encounters Date Type Department Care Team (Late st Contact Info) Description 04/11/2024 2:30 PM EST Office Visit [facility] [address] [place] [address] Gay Torrez MD [address] [place] [address] 10/04/2024 2:20 PM EDT Appointment [facility] [address] [place] [address] Unknown, Unknown, Maye Abdalla MD [address] [place] [address] documented as of this encounter Visit Diagnoses Not on filedocumented in this encounter Additional Health Concerns Assessment Noted Time PHQ-9 Depression Total Score: 21 024 10:26 AM EDT PHQ-2 Depression Total Score: 3 10/14/19 24 10:26 AM EDT documented as of this encounter Care Teams Softball Coach Relationship Specialty Start Date End Date Maye Avila MD [address] [place] [address] PCP - General Internal Medicine 06/13/23 Honey Pollock PA-C Physician Hand Mounter 09/27/22 Lester Covington MD [email or web address] Rheumatology 09/27/22 documented as of this encounter Additional Source Comments The information contained in this document represents components of the legal health record. It is not the complete legal health record.[facility]
--- OUTSIDE RECORDS SUMMARY | 2024-04-04 20:00 | XMS_ITS | Encounter Summary ---
Author Organization [facility] Address [phone] [facility] [place] [address] Care Team Providers Care Welt Trimming Machine Operator Name Role Phone Honey Pollock PA-C Unavailable + [phone] Lester Covington MD Unavailable Barbara Wilks MD Primary Care Provider Maye Avila MD Primary Care Provider [phone] Barbara Wilks MD Primary Care Provider Boo Arroyo LCSW Unavailable +[phone] Maye Avila MD Primary Care Provider [phone] Maye Melton MD, MSc Unavailable + Jenifer Rock RN Unavailable + Harsh De La Rosa Unavailable + Sravanthi Trinidad Unavailable + Encounter Details Date Type Department Care Team (Late st Contact Info) Description 03/02/2023 Procedure Pass [facility] MRI [address] [address] Social History Tobacco Use Types Packs/Day Years [...] high school, GED, job training, learning the [place] language, technical skills, or developing parenting skills)? [...] have you moved in the past 12 tue? Two or more times 07/06/2022 Paying for [...] 07/06/2022 Can we help you enroll in WIC? Not on file 0 07/06/2022 Sex and [...] Description 04/11/2024 2:30 PM EST Office Visit [facility] [address] [place] [address] Gay Torrez MD [address] [place] [address] 10/04/2024 2:20 PM EDT Appointment [facility] [address] [place] [address] Unknown, Unknown, Maye Abdalla MD [address] [place] [address] [email or web address] documented as of this encounter Visit Diagnoses Not on filedocumented in this encounter Additional Health Concerns Infection Onset Date Last Indicated Resolved Time CoV-Risk 12/26/2023 12/26/2023 01/06/2024 1:21 AM EST CoV-Risk 04/03/2024 04/03/2024 Assessment Noted Time PHQ-9 Depression Total Score: 9 07/07/19 23 3:12 PM EDT PHQ-2 Depression Total Score: 2 07/07/19 23 3:12 PM EDT documented as of this encounter Care Teams Welt Trimming Machine Operator Relationship Specialty Start Date End Date Barbara Wilks MD [address] [place] [address] [email or web address] PCP - General Internal Medicine 02/28/23 03/02/23 Maye Avila MD [address] [place] [address] [email or web address] PCP - General Internal Medicine 03/03/23 04/10/23 Barbara Wilks MD [address] [place] [address] [email or web address] PCP - General Internal Medicine 04/11/23 06/12/23 Maye Avila MD [address] [place] [address] PCP - General Internal Medicine 06/13/23 Honey Pollock PA-C [email or web address] Physician Arboriculture Teacher 09/27/22 Lester Covington MD Rheumatology 09/27/22 Boo Arroyo, STRAP STITCHER [address] [place] [address] [email or web address] i[facility] Social Work 04/14/23 05/12/23 Maye Melton MD, MSc [address] [place] [address] iC[employer] Plus Appeals Reviewer VeteranAutomobile Travel Club Counselor Medicine 06/27/23 07/17/23 Jenifer Rock, WALESKA [address] [place] [address] iC[employer] Plus Appeals Reviewer Veteran 06/27/23 Harsh Ta [address] [place] [address] iC[employer] Plus Community Health Worker 06/27/23 07/17/23 Sravanthi Trinidad [address] [place] [address] iCMP Plus Computer Scientist 06/27/23 07/17/23 documented as of this encounter Additional Source Comments The information contained in this document represents components of the legal health record. It is not the complete legal health record.[facility]
--- OUTSIDE RECORDS SUMMARY | 2024-04-04 20:00 | XMS_ITS | Encounter Summary ---
Author Organization [facility] Address [phone] [facility] [email or web address] [address] Care Team Providers Care Composition Teacher Name Role Phone Honey Pollock PA-C Unavailable + [phone] Lester Covington MD Unavailable Barbara Wilks MD Primary Care Provider Maye Avila MD Primary Care Provider [phone] Barabra Wilks MD Primary Care Provider Boo Arroyo LCSW Unavailable +[phone] Maye Avila MD Primary Care Provider [phone] Maye Melton MD, MSc Unavailable + Jenifer Rock RN Unavailable + Harsh De La Rosa Unavailable + Sravanthi Trinidad Unavailable + Encounter Details Date Type Department Care Team (Late st Contact Info) Description 03/02/2023 Procedure Pass [facility] MRI [address] [address] Social History Tobacco Use Types Packs/Day Years [...] high school, GED, job training, learning the [place] language, technical skills, or developing parenting skills)? [...] Description 04/11/2024 2:30 PM EST Office Visit [facility] [address] [facility] [address] [facility] [address] [place] [address] Gay Torrez MD [address] [facility] [address] [place] [address] 10/04/2024 2:20 PM EDT Appointment [facility] [address] [place] [address] Unknown, Unknown, Maye Abdalla MD [address] [place] [address] [email or web address] documented as of this encounter Visit Diagnoses Not on filedocumented in this encounter Additional Health Concerns Infection Onset Date Last Indicated Resolved Time CoV-Risk 12/26/2023 12/26/2023 01/06/2024 1:21 AM EST CoV-Risk 04/03/2024 04/03/2024 Assessment Noted Time PHQ-9 Depression Total Score: 9 07/07/19 23 3:12 PM EDT PHQ-2 Depression Total Score: 2 07/07/19 23 3:12 PM EDT documented as of this encounter Care Teams Composition Teacher Relationship Specialty Start Date End Date Barbara Wilks MD [address] [place] [address] [email or web address] PCP - General Internal Medicine 02/28/23 03/02/23 Maye Avila MD [address] [place] [address] [email or web address] PCP - General Internal Medicine 03/03/23 04/10/23 Barbara Wilks MD [address] [place] [address] [email or web address] PCP - General Internal Medicine 04/11/23 06/12/23 Maye Avila MD [address] [place] [address] PCP - General Internal Medicine 06/13/23 Honey Pollock PA-C [email or web address] Physician Treasury Consultant 09/27/22 Lester Covington MD Rheumatology 09/27/22 Boo Arroyo, WESTERN FELT HAT BLOCKER [address] [place] [address] [email or web address] iCMP Social Work 04/14/23 05/12/23 Maye Melton MD, MSc [address] [place] [address] iCMP Plus Pan PusherCommunity Reinvestment Act Officer Medicine 06/27/23 07/17/23 Jenifer Rock, WALESKA [address] [place] [address] iCMP Plus Pan Pusher 06/27/23 Harsh Ta [address] [place] [address] iCMP Plus Community Health Worker 06/27/23 07/17/23 Sravanthi Trinidad [address] [place] [address] iCMP Plus Tin Plater 06/27/23 07/17/23 documented as of this encounter Additional Source Comments The information contained in this document represents components of the legal health record. It is not the complete legal health record.[facility]
--- OUTSIDE RECORDS SUMMARY | 2024-04-04 20:00 | XMS_ITS | Encounter Summary ---
Author Organization [facility] Address [phone] [facility] [employer] [place] [address] Care Team Providers Care Cheese Factory Worker Name Role Phone Honey Pollock PA-C Unavailable + [phone] Lester Covington MD Unavailable Barbara Wilks MD Primary Care Provider Maye Avila MD Primary Care Provider [phone] Barbara Wilks MD Primary Care Provider Boo Arroyo LCSW Unavailable +[phone] Maye Avila MD Primary Care Provider [phone] Maye Melton MD, MSc Unavailable + Jenifer Rock RN Unavailable + Harsh De La Rosa Unavailable + Sravanthi Trinidad Unavailable + Encounter Details Date Type Department Care Team (Late st Contact Info) Description 03/02/2023 Procedure Pass [facility] MRI [address] [address] Social History Tobacco Use Types Packs/Day Years [...] high school, GED, job training, learning the Qat[place] language, technical skills, or developing parenting skills)? [...] Description 04/11/2024 2:30 PM EST Office Visit [facility] [address] [place] [address] Gay Torrez MD [address] [place] [address] 10/04/2024 2:20 PM EDT Appointment [facility] [address] [place] [address] Unknown, Unknown, Maye Abdalla MD [address] [place] [address] [email or web address] documented as of this encounter Visit Diagnoses Not on filedocumented in this encounter Additional Health Concerns Infection Onset Date Last Indicated Resolved Time CoV-Risk 12/26/2023 12/26/2023 01/06/2024 1:21 AM EST CoV-Risk 04/03/2024 04/03/2024 Assessment Noted Time PHQ-9 Depression Total Score: 9 07/07/19 23 3:12 PM EDT PHQ-2 Depression Total Score: 2 07/07/19 23 3:12 PM EDT documented as of this encounter Care Teams Cheese Factory Worker Relationship Specialty Start Date End Date Barbara Wilks MD [address] [place] [address] [email or web address] PCP - General Internal Medicine 02/28/23 03/02/23 Maye Avila MD [address] [place] [address] [email or web address] PCP - General Internal Medicine 03/03/23 04/10/23 Barbara Wilks MD [address] [place] [address] [email or web address] PCP - General Internal Medicine 04/11/23 06/12/23 Maye Avila MD [address] [place] [address] PCP - General Internal Medicine 06/13/23 Honey Pollock PA-C [email or web address] Physician Radiation Protection Engineer 09/27/22 Lester Covington MD Rheumatology 09/27/22 Boo Arroyo, WATER VALVE MECHANIC [address] [place] [address] [email or web address] iCMP Social Work 04/14/23 05/12/23 Maye Melton MD, MSc [address] [place] [address] iCMP Plus Air Motor RepairerFabric Coating Supervisor Medicine 06/27/23 07/17/23 Jenifer Rock, WALESKA [address] [place] [address] iCMP Plus Air Motor Repairer 06/27/23 Harsh Ta [address] [place] [address] iCMP Plus Community Health Worker 06/27/23 07/17/23 Sravanthi Trinidad [address] [place] [address] iCMP Plus Clothes Drier Assembler 06/27/23 07/17/23 documented as of this encounter Additional Source Comments The information contained in this document represents components of the legal health record. It is not the complete legal health record.[facility]
--- OUTSIDE RECORDS SUMMARY | 2024-04-04 20:01 | XMS_ITS | Encounter Summary ---
Author Organization [facility] Address [phone] [facility] [place] [employer] [address] Care Team Providers Care Pipe Fitter Maintenance Name Role Phone Mariaelena Howell MD Primary Care Provider + [phone] Mariaelena Howell MD Primary Care Provider + [phone] Tari Palacios Primary Care Provider Maye Avila MD Primary Care Provider +[phone]- Maye Avila MD Primary Care Provider +1- Honey Pollock PA-C Unavailable [phone] Lester Covington MD Unavailable Maye Avila MD Primary Care Provider +1- Barbara Wilks MD Primary Care Provider + Maye Avila MD Primary Care Provider +[phone] Barbara Wilks MD Primary Care Provider + Maye Avila MD Primary Care Provider +1- Barbara Wilks MD Primary Care Provider + Boo Arroyo LCSW Unavailable +[phone] Maye Avila MD Primary Care Provider [phone] Maye Melton MD, MSc Unavailable Jenifer Rock RN Unavailable [phone] Harsh De La Rosa Unavailable AmosSravanthi Unavailable Encounter Details Date Type Department Care Team (Late st Contact Info) Description 07/15/2020 Procedure Pass [facility] - [address] [address] Social History Tobacco Use Types Packs/Day Years Used Date Smoking Tobacco: Never Assessed Sex and Gender Information Value Date Recorded [...] Description 04/11/2024 2:30 PM EST Office Visit [facility] [address] [place] [address] Gay Torrez MD [address] [place] [address] 10/04/2024 2:20 PM EDT Appointment [facility] [address] [place] [address] Unknown, Unknown, Maye Abdalla MD [address] [place] [address] documented as of this encounter Visit Diagnoses Not on filedocumented in this encounter Additional Health Concerns Infection Onset Date Last Indicated Resolved Time CoV-Exposed Comment:Positive COVID-19 06/28/2021 06/28/2021 06/28/2021 7:1 5 PM EDT CoV-Risk 06/28/2021 06/28/2021 06/28/2021 7:15 PM EDT COVID-19 06/28/2021 06/28/2021 07/19/2021 1:21 AM EDT CoV-Risk 12/26/2023 12/26/2023 01/06/2024 1:21 AM EST CoV-Risk 04/03/2024 04/03/2024 documented as of this encounter Care Teams Pipe Fitter Maintenance Relationship Specialty Start Date End Date Mariaelena Howell MD [address] [place] [address] PCP - General Pediatrics 07/16/20 08/23/21 Mariaelena Howell MD [address] [place] [address] PCP - General 07/15/20 07/15/20 Tari Palacios PA [address] [place] [address] [email or web address] PCP - General 08/24/21 10/04/21 Maye Avila MD [address] [place] [address] [email or web address] PCP - General Internal Medicine 10/05/21 12/29/21 Maye Avila MD [address] [place] [address] PCP - General Internal Medicine 12/30/21 10/17/22 Maye Avila MD [address] [place] [address] PCP - General Internal Medicine 10/18/22 12/26/22 Barbara Wilks MD [address] [place] [address] [email or web address] PCP - General Internal Medicine 12/27/22 01/19/23 Maye Avila MD [address] [place] [address] [email or web address] PCP - General Internal Medicine 01/20/23 02/27/23 Barbara Wilks MD [address] [place] [address] [email or web address] PCP - General Internal Medicine 02/28/23 03/02/23 Maye Avila MD [address] [place] [address] [email or web address] PCP - General Internal Medicine 03/03/23 04/10/23 Barbara Wilks MD [address] [place] [address] [email or web address] PCP - General Internal Medicine 04/11/23 06/12/23 Maye Avila MD [address] [place] [address] [email or web address] PCP - General Internal Medicine 06/13/23 Honey Pollock PA-C [address] [place] [address] [email or web address] Physician Water Quality Manager 09/27/22 Lester Covington MD [address] [place] [address] Rheumatology 09/27/22 Boo Arroyo, ASSEMBLY MACHINE SET UP MECHANIC [address] [place] [address] [email or web address] [facility] Social Work 04/14/23 05/12/23 Maye Melton MD, MSc [address] [place] [address] [email or web address] iCMP Plus Golf Cart MakerPaving Inspector Medicine 06/27/23 07/17/23 Jenifer Rock RN [address] [place] [address] iCM Plus Golf Cart Maker 06/27/23 Harsh Ta [address] [place] [address] [facility] Plus Community Health Worker 06/27/23 07/17/23 Sravanthi Trinidad [address] [place] [address] iCM Plus Delivery Nurse 06/27/23 07/17/23 documented as of this encounter Additional Source Comments The information contained in this document represents components of the legal health record. It is not the complete legal health record.[facility]
--- OUTSIDE RECORDS SUMMARY | 2024-04-04 20:01 | XMS_ITS | Encounter Summary ---
Author Organization [facility] Address [phone] Formerly [facility], [facility] [place] [address] Care Team Providers Care Garnett Feeder Name Role Phone Mariaelena Howell MD Primary Care Provider Tari Palacios Primary Care Provider [phone] Maye Avila MD Primary Care Provider +1- Maye Avila MD Primary Care Provider +- Honey Pollock PA-C Unavailable + [phone] Lester Covington MD Unavailable Maye Avila MD Primary Care Provider +1- Barbara Wilks MD Primary Care Provider + Maye Avila MD Primary Care Provider +- Barbara Wilks MD Primary Care Provider + Maye Avila MD Primary Care Provider +1- Barbara Wilks MD Primary Care Provider + Boo Arroyo LCSW Unavailable [phone] Maye Avila MD Primary Care Provider +- Maye Melton MD, MSc Unavailable Jenifer Rock RN Unavailable +- Harsh De La Rosa Unavailable Sravanthi Trinidad Unavailable Encounter Details Date Type Department Care Team (Late st Contact Info) Description 01/29/2021 Procedure Pass [facility], [address] [address] Social History Tobacco Use Types Packs/Day Years Used Date Smoking Tobacco: Never Smokeless Tobacco: Never Alcohol Use Standard Drinks/Week Comments Not Currently 0 (1 standard drink = 0.6 oz pur e alcohol) Sex and Gender Information Value Date Recorded Sex Assigned at Female 06/02/2020 3:33 PM EDT Gender Identity Female 06/02/2020 3:33 PM EDT Sexual Orientation Bisexual 09/15/2023 11 :02 AM EDT Sexual Orientation Lesbian or Garcia 09/15/2023 11 :02 AM EDT documented as of this encounter Plan of Treatment Upcoming Encounters Date Type Department Care Team (Late Contact Info) Description 04/11/2024 2:30 PM EST Office Visit [facility] [address] [address] [place] [address] Gay Torrez MD [address] [place] [address] 10/04/2024 2:20 PM EDT Appointment [facility] [address] [place] [phone] Unknown, Unknown, Maye Abdalla MD [address] [place] [address] documented as of this encounter Visit Diagnoses Not on filedocumented in this encounter Additional Health Concerns Infection Onset Date Last Indicated Resolved Time CoV-Exposed Comment:Positive COVID-19 06/28/2021 06/28/2021 06/28/2021 7:1 5 PM EDT CoV-Risk 06/28/2021 06/28/2021 06/28/2021 7:15 PM EDT COVID06/28/2021 06/28/2021 07/19/2021 1:21 AM EDT CoV-Risk 12/26/2023 12/26/2023 01/06/2024 1:21 AM EST CoV-Risk 04/03/2024 04/03/2024 documented as of this encounter Care Teams Garnett Feeder Relationship Specialty Start Date End Date Mariaelena Howell MD [address] [place] [address] PCP - General Pediatrics 07/16/20 08/23/21 Tari Palacios PA [address] [place] [address] [email or web address] PCP - General 08/24/21 10/04/21 Maye Avila MD [address] [place] [address] PCP - General Internal Medicine 10/05/21 12/29/21 Maye Avila MD [address] [place] [address] PCP - General Internal Medicine 12/30/21 10/17/22 Maye Avila MD [address] [place] [email or web address] PCP - General Internal Medicine 10/18/22 12/26/22 Barbara Wilks MD [address] [place] [address] [email or web address] PCP - General Internal Medicine 12/27/22 01/19/23 Maye Avila MD [address] [place] [address] [email or web address] PCP - General Internal Medicine 01/20/23 02/27/23 Barbara Wilks MD [address] [place] [address] [email or web address] PCP - General Internal Medicine 02/28/23 03/02/23 Maye Avila MD [address] [place] [address] [email or web address] PCP - General Internal Medicine 03/03/23 04/10/23 Barbara Wilks MD [address] [place] [address] [email or web address] PCP - General Internal Medicine 04/11/23 06/12/23 Maye Avila MD [address] [place] [address] [email or web address] PCP - General Internal Medicine 06/13/23 Honey Pollock PA-C [address] [place] [address] [email or web address] Physician Utilities Operator 09/27/22 Lester Covington MD [address] [place] [address] Rheumatology 09/27/22 Boo Arroyo, NATE [address] [place] [address] [email or web address] Social Work 04/14/23 05/12/23 Maye Melton MD, MSc [address] [place] [address] [email or web address] Plus Cable Ferry OperatorGarage Hand Medicine 06/27/23 07/17/23 Jenifer Rock RN [address] [place] [address] [email or web address] Plus Cable Ferry Operator 06/27/23 Harsh Ta [address] [place] [address] [email or web address] Plus Community Health Worker 06/27/23 07/17/23 Sravanthi Trinidad [address] [place] [address] [email or web address] Plus Case Management Assistant 06/27/23 07/17/23 documented as of this encounter Additional Source Comments The information contained in this document represents components of the legal health record. It is not the complete legal health record.[facility]
--- OUTSIDE RECORDS SUMMARY | 2024-04-04 20:01 | XMS_ITS | Encounter Summary ---
Author Organization [facility] Address [phone] Formerly [facility], [facility] [place] [address] Care Team Providers Care Telesales Advisor Name Role Phone Mariaelena Howell MD Primary Care Provider Tari Palacios Primary Care Provider [phone] Maye Avila MD Primary Care Provider +1- Maey Avila MD Primary Care Provider +- Honey Pollcok PA-C Unavailable + [phone] Lester Covington MD Unavailable Maye Avila MD Primary Care Provider +1- Barbara Wilks MD Primary Care Provider + Maye Avila MD Primary Care Provider +- Barbara Wilks MD Primary Care Provider + Maye Avila MD Primary Care Provider +1- Barbara Wilks MD Primary Care Provider + Boo Arroyo LCSW Unavailable [phone] Maye Avila MD Primary Care Provider +- Maye Melton MD, MSc Unavailable Jenifer Rock RN Unavailable +- Harsh De La Rosa Unavailable Sravanthi Trinidad Unavailable Encounter Details Date Type Department Care Team (Late st Contact Info) Description 01/13/20[facility] [address] [place] [address] Christina Blackburn MD [address] [facility] [address] [place] [address] [email or web address] Abdominal pain, unspecified abdominal location Social History Tobacco Use Types Packs/Day Years [...] Description 04/11/2024 2:30 PM EST Office Visit [facility] [address] [facility] [address] [facility] [address] [place] [address] Gay Torrez MD [address] [place] [address] 10/04/2024 2:20 PM EDT Appointment [facility] [address] [place] [phone] Unknown, Unknown, Maye Abdalla MD [address] [place] [address] documented as of this encounter Results * XR ABDOMEN 1 VIEW (01/13/2021 11:23 AM EST) Anatomical Region Laterality Modality Abdomen Computed Radiogr aphy 01/13/2021 11:3 2 AM EST Impressions 01/13/2021 11:34 AM EST No opaque urinary calculi or large colonic stool burden. Hypertrophied left L5 transverse process forming a pseudoarticulation with the sacral ala, which could be correlated with any associated symptomatology in this region. POS - [id number] Narrative 01/13/2021 11:34 AM EST COMPARISON: 07/15/2020 CT FINDINGS: AP supine views were obtained. No distended bowel loops apparent. No evidence of obstipation or rectal fecal impaction. No opaque calculi. Visualized skeletal structures are intact with a chronic mild left convex lumbar scoliotic curvature present with a hypertrophied left L5 transverse process forming a pseudoarticulation with the sacral ala. Visualized lung bases are clear. Procedure Note Drew Snell MD - 01/13/2021 COMPARISON: 07/15/2020 CT FINDINGS: AP supine views were obtained. No distended bowel loops apparent. Noevidence of obstipation or rectal fecal impaction. No opaque calculi.Visualized skeletal structures are intact with a chronic mild left convexlumbar scoliotic curvature present with a hypertrophied left L5 transverseprocess forming a pseudoarticulation with the sacral ala. Visualized lungbases are clear. IMPRESSION: No opaque urinary calculi or large colonic stool burden. Hypertrophied left L5 transverse process forming a pseudoarticulation withthe sacral ala, which could be correlated with any associatedsymptomatology in this region. POS - [id number] Christina Blackburn MD IMG XR ABDOMEN documented in this encounter Visit Diagnoses Diagnosis Abdominal pain, unspecified abdominal location Abdominal pain, unspecified abdominal location documented in this encounter Additional Health Concerns Infection Onset Date Last Indicated Resolved Time CoV-Exposed Comment:Positive COVID-19 06/28/2021 06/28/2021 06/28/2021 7:1 5 PM EDT CoV-Risk 06/28/2021 06/28/2021 06/28/2021 7:15 PM EDT COVID-19 06/28/2021 06/28/2021 07/19/2021 1:21 AM EDT CoV-Risk 12/26/2023 12/26/2023 01/06/2024 1:21 AM EST CoV-Risk 04/03/2024 04/03/2024 documented as of this encounter Care Teams Telesales Advisor Relationship Specialty Start Date End Date Mariaelena Howell MD [address] [place] [address] PCP - General Pediatrics 07/16/20 08/23/21 Tari Palacios PA [address] [place] [address] [email or web address] PCP - General 08/24/21 10/04/21 Maye Avila MD [address] [place] [address] PCP - General Internal Medicine 10/05/21 12/29/21 Maye Avila MD [address] [place] [email or web address] PCP - General Internal Medicine 12/30/21 10/17/22 Maye Avila MD [address] [place] [address] PCP - General Internal Medicine 10/18/22 12/26/22 Barbara Wilks MD [address] [place] [address] [email or web address] PCP - General Internal Medicine 12/27/22 01/19/23 Maye Avila MD [address] [place] [address] [email or web address] PCP - General Internal Medicine 01/20/23 02/27/23 Barbara Wilks MD [address] [place] [address] [email or web address] PCP - General Internal Medicine 02/28/23 03/02/23 Maye Avila MD [address] [place] [address] [email or web address] PCP - General Internal Medicine 03/03/23 04/10/23 Barbara Wilks MD [address] [place] [address] [email or web address] PCP - General Internal Medicine 04/11/23 06/12/23 Maye Avila MD [address] [place] [address] [email or web address] PCP - General Internal Medicine 06/13/23 Honey Pollock PA-C [address] [place] [address] [email or web address] Physician Physical Director 09/27/22 Lester Covington MD [address] [place] [address] Rheumatology 09/27/22 Boo Arroyo LCSW [address] [place] [address] [email or web address] [facility] Social Work 04/14/23 05/12/23 Maye Melton MD, MSc [address] [place] [address] [email or web address] [facility] Plus Conformal Pad FormerClub Licensee Medicine 06/27/23 07/17/23 Jenifer Rock RN [address] [place] [address] [email or web address] [facility] Plus Conformal Pad Former 06/27/23 Harsh Ta [address] [place] [address] [email or web address] [facility] Plus Community Health Worker 06/27/23 07/17/23 Sravanthi Trinidad [address] [place] [address] [email or web address] [facility] Plus Turner Splitter Machine Operator 06/27/23 07/17/23 documented as of this encounter Additional Source Comments The information contained in this document represents components of the legal health record. It is not the complete legal health record.[facility]
--- OUTSIDE RECORDS SUMMARY | 2024-04-04 20:01 | XMS_ITS | Encounter Summary ---
Author Organization [facility] Address [phone] [facility] [place] [address] Care Team Providers Care Skein Bander Name Role Phone Mariaelena Howell MD Primary Care Provider Tari Palacios Primary Care Provider Maye Avila [...] Provider + Boo Arroyo LCSW Unavailable [phone] Maye Avila MD Primary Care Provider +- Maye Melton MD, MSc Unavailable Jenifer Rock RN Unavailable +- Harsh De La Rosa Unavailable Sravanthi Trinidad Unavailable Encounter Details Date Type Department Care Team (Late st Contact Info) Description 12/24/2020 Transcribe Orders Virtual Department [address] [place] [address] Mariaelena Howell MD [address] [place] [address] Left lower quadrant abdominal pain (Primary Dx); Nausea Social History Tobacco Use Types Packs/Day Years [...] Description 04/11/2024 2:30 PM EST Office Visit [facility] [address] [facility] [address] [place] [address] Gay Torrez MD [address] [place] [address] 10/04/2024 2:20 PM EDT Appointment [facility] [address] [place] [phone] Unknown, Unknown, Maye Abdalla MD [address] [place] [address] documented as of this encounter Results * US Abdomen Complete (01/13/2021 11:13 AM EST) Anatomical Region Laterality Modality Abdomen Ultrasound 01/13/2021 11:2 2 AM EST Impressions 01/13/2021 11:31 AM EST 1.Normal. Narrative 01/13/2021 11:31 AM EST US ABDOMEN COMPLETE TECHNIQUE: Abdominal Ultrasound Complete. COMPARISON: Correlation is made to CT dated 07/15/2020 FINDINGS: Liver: Normal. No focal lesions. Main Portal Vein: Patent with normal direction of flow. Gallbladder: Normal. No gallstones or gallbladder wall thickening. Biliary: Normal. No intrahepatic or extrahepatic biliary ductal dilatation. ?The common bile duct measures 2 mm. Pancreas: Incompletely visualized. Spleen: Normal. No splenomegaly. Kidneys: Normal. No stones or hydronephrosis. ?? Aorta: Normal, where visualized sonographically. IVC: Normal intrahepatic segment. Procedure Note Gurjit Melgar MD - 01/13/2021 US ABDOMEN COMPLETE TECHNIQUE: Abdominal Ultrasound Complete. COMPARISON: Correlation is made to CT dated 07/15/2020 FINDINGS: Liver: Normal. No focal lesions. Main Portal Vein: Patent with normal direction of flow. Gallbladder: Normal. No gallstones or gallbladder wall thickening. Biliary: Normal. No intrahepatic or extrahepatic biliary ductaldilatation. The common bile duct measures 2 mm. Pancreas: Incompletely visualized. Spleen: Normal. No splenomegaly. Kidneys: Normal. No stones or hydronephrosis. Aorta: Normal, where visualized sonographically. IVC: Normal intrahepatic segment. IMPRESSION: 1.Normal. Mariaelena Howell MD IMG US ABDOMEN documented in this encounter Visit Diagnoses Diagnosis Left lower quadrant abdominal pain- Primary Nausea Nausea alone Left lower quadrant abdominal pain Nausea Nausea alone documented in this encounter Additional Health Concerns Infection Onset Date Last Indicated Resolved Time CoV-Exposed Comment:Positive COVID-19 06/28/2021 06/28/2021 06/28/2021 7:1 5 PM EDT CoV-Risk 06/28/2021 06/28/2021 06/28/2021 7:15 PM EDT COVID-19 06/28/2021 06/28/2021 07/19/2021 1:21 AM EDT CoV-Risk 12/26/2023 12/26/2023 01/06/2024 1:21 AM EST CoV-Risk 04/03/2024 04/03/2024 documented as of this encounter Care Teams Skein Bander Relationship Specialty Start Date End Date Mariaelena Howell MD [address] [place] [address] PCP - General Pediatrics 07/16/20 08/23/21 Tari Palacios PA [address] [place] [address] [email or web address] PCP - General 08/24/21 10/04/21 Maye Avila MD [address] [place] [address] PCP - General Internal Medicine 10/05/21 12/29/21 Maye Avila MD [address] [place] [address] PCP - General Internal Medicine 12/30/21 10/17/22 Maye Avila MD [address] [place] [address] PCP - General Internal Medicine 10/18/22 12/26/22 Barbara Wilks MD [address] [place] [address] [email or web address] PCP - General Internal Medicine 12/27/22 01/19/23 Maye Avila MD [address] [place] [address] PCP - General Internal Medicine 01/20/23 02/27/23 Barbara Wilks MD [address] [place] [address] [email or web address] PCP - General Internal Medicine 02/28/23 03/02/23 Maye Avila MD [address] [place] [address] [email or web address] PCP - General Internal Medicine 03/03/23 04/10/23 Barbara Wilks MD [address] [place] [address] [email or web address] PCP - General Internal Medicine 04/11/23 06/12/23 Maye Avila MD [address] [place] [address] [email or web address] PCP - General Internal Medicine 06/13/23 Honey Pollock PA-C [address] [place] [address] [email or web address] Physician Gateman 09/27/22 Lester Covington MD [address] [place] [address] [email or web address] Rheumatology 09/27/22 Boo Arroyo, [address] [address] [email or web address] Social Work 04/14/23 05/12/23 Maye Melton MD, MSc [address] [place] [address] [email or web address] [employer] Plus Maritime GuardVice President [employer]idential Solar Sales Medicine 06/27/23 07/17/23 Jenifer Rock RN [address] [place] [address] [email or web address] [facility] Plus Maritime Guard 06/27/23 4 Harsh De La Rosa [address] [place] [address] [email or web address] [facility] Plus Community Health Worker 06/27/23 07/17/23 Sravanthi Trinidad [address] [place] [address] [email or web address] [facility] Plus Bookkeeper Receptionist 06/27/23 07/17/23 documented as of this encounter Additional Source Comments The information contained in this document represents components of the legal health record. It is not the complete legal health record.[facility]
--- OUTSIDE RECORDS SUMMARY | 2024-04-04 20:01 | XMS_ITS | Encounter Summary ---
Author Organization [facility] Address [phone] [facility] [place] [address] Care Team Providers Care Field Enumerator Name Role Phone Mariaelena Howell MD Primary Care Provider Tari Palacios Primary Care Provider [phone] Maye Avila MD Primary Care Provider [phone] [...] Provider + Boo Arroyo LCSW Unavailable [phone] Maye Avila MD Primary Care Provider +- Maye Melton MD, MSc Unavailable Jenifer Rock RN Unavailable +- Harsh De La Rosa Unavailable Sravanthi Trinidad Unavailable Encounter Details Date Type Department Care Team (Late Contact Info) Description 01/14/2021 Transcribe Orders Virtual Department [address] [place] [id number] Mariaelena Howell MD [address] [place] [address] Nausea (Primary Dx); LLQ pain Social History Tobacco Use Types Packs/Day Years [...] Description 04/11/2024 2:30 PM EST Office Visit [facility] [address] [facility] [address] [place] [address] Gay Torrez MD [address] [facility] [address] [place] [address] 10/04/2024 2:20 PM EDT Appointment [facility] [address] [place] [address] Unknown, Unknown, Maye Abdalla MD [address] [place] [address] documented as of this encounter Results * US PELVIS TRANSABDOMINAL PLUS TRANSVAGINAL (01/16/2021 3:07 PM EST) Anatomical Region Laterality Modality Pelvis, Uterus/Adnexa Ultrasound 01/16/2021 4:32 PM EST Impressions 01/16/2021 4:36 PM EST Septate uterus suggested. No endometrial mass seen. Unremarkable appearing ovaries. Narrative 01/16/2021 4:36 PM EST HISTORY: ??Pelvic pain or some a left COMPARISON: CT July 15 Ultrasonic examination of the pelvis is performed transabdominally and endovaginally. ??Multiple static images obtained. FINDINGS: Uterus: There is measures 8.2 centers in length. Fundus measured at 5.9 x 2.8 cm. There is a septated appearance at the fundus. No fibroids. Endometrium measured 6 mm. No endometrial masses. No cervix abnormality detected. Ovaries: Right ovary measures 3.0 x 2.6 x 1.3 cm for volume of 5.3 cm and left 3.1 x 2.4 x 1.6 cm for volume of 6.2 cc. Follicular cysts noted bilaterally. No masses of concern. Limited Doppler study: Low resistance vascular waveforms documented both ovaries. Other: There is fairly large volume of simple appearing free fluid in the pelvis, probably similar in volume to the amount seen on CT. Procedure Note Tommie Mariano MD - 01/16/2021 HISTORY: Pelvic pain or some a left COMPARISON: CT July 15 Ultrasonic examination of the pelvis is performed transabdominally andendovaginally. Multiple static images obtained. FINDINGS: Uterus: There is measures 8.2 centers in length. Fundus measured at 5.9 x2.8 cm. There is a septated appearance at the fundus. No fibroids.Endometrium measured 6 mm. No endometrial masses. No cervix abnormalitydetected. Ovaries: Right ovary measures 3.0 x 2.6 x 1.3 cm for volume of 5.3 cm andleft 3.1 x 2.4 x 1.6 cm for volume of 6.2 cc. Follicular cysts notedbilaterally. No masses of concern. Limited Doppler study: Low resistance vascular waveforms documented bothovaries. Other: There is fairly large volume of simple appearing free fluid in thepelvis, probably similar in volume to the amount seen on CT. IMPRESSION: Septate uterus suggested. No endometrial mass seen. Unremarkable appearingovaries. Mariaelena Howell MD IMG US PELVIS documented in this encounter Visit Diagnoses Diagnosis Nausea- Primary Nausea alone LLQ pain Abdominal pain, left lower quadrant Nausea Nausea alone LLQ pain Abdominal pain, left lower quadrant documented in this encounter Additional Health Concerns Infection Onset Date Last Indicated Resolved Time CoV-Exposed Comment:Positive COVID-19 06/28/2021 06/28/2021 06/28/2021 7:1 5 PM EDT CoV-Risk 06/28/2021 06/28/2021 06/28/2021 7:15 PM EDT COVID-19 06/28/2021 06/28/2021 07/19/2021 1:21 AM EDT CoV-Risk 12/26/2023 12/26/2023 01/06/2024 1:21 AM EST CoV-Risk 04/03/2024 04/03/2024 documented as of this encounter Care Teams Field Enumerator Relationship Specialty Start Date End Date Mariaelena Howell MD [address] [place] [phone] PCP - General Pediatrics 07/16/20 08/23/21 Tari Palacios PA [address] [place] [address] [email or web address] PCP - General 08/24/21 10/04/21 Maye Avila MD [address] [place] [address] PCP - General Internal Medicine 10/05/21 12/29/21 Maye Avila MD [address] [place] [address] PCP - General Internal Medicine 12/30/21 10/17/22 Maye Avila MD [address] [place] [address] [email or web address] PCP - General Internal Medicine 10/18/22 12/26/22 Barbara Wilks MD [address] [place] [address] [email or web address] PCP - General Internal Medicine 12/27/22 01/19/23 Maye Avila MD [address] [place] [address] [email or web address] PCP - General Internal Medicine 01/20/23 02/27/23 Barbara Wilks MD [address] [place] [address] [email or web address] PCP - General Internal Medicine 02/28/23 03/02/23 Maye Avila MD [address] [place] [address] [email or web address] PCP - General Internal Medicine 03/03/23 04/10/23 Barbara Wilks MD [address] [place] [address] [email or web address] PCP - General Internal Medicine 04/11/23 06/12/23 Maye Avila MD [address] [place] [address] PCP - General Internal Medicine 06/13/23 Honey Pollock PA-C [address] [place] [address] [email or web address] Physician Environmental Advisor 09/27/22 Lester Covington MD [address] [place] [address] Rheumatology 09/27/22 Boo Arroyo LCSW [address] [place] [address] [email or web address] Work 04/14/23 05/12/23 Maye Melton MD, MSc [address] [place] [address] [employer] First Aid TrainerProgram Rep Medicine 06/27/23 07/17/23 Jenifer Rock RN [address] [place] [address] [email or web address] [employer] First Aid Trainer 06/27/23 Harsh Ta [address] [place] [address] [employer] Community Health Worker 06/27/23 07/17/23 Sravanthi Trinidad [address] [place] [address] [facility] Plus Splitter Hand 06/27/23 07/17/23 documented as of this encounter Additional Source Comments The information contained in this document represents components of the legal health record. It is not the complete legal health record.[facility]
--- OUTSIDE RECORDS SUMMARY | 2024-04-04 20:01 | XMS_ITS | Clinical Summary ---
Author Organization [facility] Address [address] [place] [address] Care Team Providers Care Certified Registered Dental Assistant Name Role Phone Maye Avila MD Primary Care Provider [phone] Medications LORazepam (ATIVAN) 0.5 MG tablet 0.5 MG PO Q4H PRN tablet 3 Active ondansetron (ZOFRAN-ODT) 4 MG disintegrating tablet 4 MG SL Q6-8 #12 TAB 12 tablet 0 3 Active ondansetron (ZOFRAN) 4 MG tablet 4 MG PO Q4-6H #10 TAB PRN 10 tablet 0 3 Active FLUoxetine (PROzac) 10 MG capsule 10 MG PO DAILY capsule 3 Active Active Problems Problem Noted Date Diagnosed Date Arthritis of unspecified temporomandibular joint 04/12/2022 Overview (10/26/2023): Edited by FAMILIA PHILLIPS NP on 04/12/2022 Vomiting, unspecified 03/14/2022 Overview (10/26/2023): Edited by CASSY SORENSEN on 05/14/2022 Dehydration 01/08/2022 Overview (10/26/2023): Edited by ROSALBA THOMAS on 01/08/2022 Acute gastritis without bleeding 01/08/2022 Overview (10/26/2023): Edited by ROSALBA THOMAS on 01/08/2022 Vomiting, unspecified 01/07/2022 Overview (10/26/2023): Edited by ROSALBA THOMAS on 01/07/2022 Nausea with vomiting, unspecified 12/26/2021 Overview (10/26/2023): Add'l ICD-10 Code(s): R19.7 - Edited by RYLAN MEJIA MD on 12/26/2021 Vomiting, unspecified 11/22/2021 Overview (10/26/2023): Edited by JUDITH RUTHERFORD on 11/22/2021 Cervicalgia 11/22/2021 Overview (10/26/2023): Edited by JUDITH RUTHERFORD on 11/22/2021 Headache, unspecified 11/22/2021 Overview (10/26/2023): Edited by JUDITH RUTHERFORD on 11/22/2021 Nausea with vomiting, unspecified 11/21/2021 Overview (10/26/2023): Add'l ICD-10 Code(s): F12.90 - Edited by MAKEDA WRIGHT MD on 03/14/2022 Vomiting, unspecified 11/18/2021 Overview (10/26/2023): Edited by CLARKE BRIONES on 11/18/2021 Urinary tract infection, site not specified 09/08 Overview (10/26/2023): Edited by CASSY SORENSEN on 10/03/2021 Unspecified abdominal pain 10/05/2020 Overview (10/26/2023): Edited by JIMMIE VELARDE on 10/20/2022 Encounters Date Type Department Care Team Description 04/02/[address] [address] Celine Can, RN PAP TRACKING ABSALOM from Last 3 Months Social History Tobacco Use Types Packs/Day Years Used Date Smoking Tobacco: Never Assessed Comments Unknown Sex and Gender Information Value Date Recorded Sex Assigned at Not on file Legal Sex Female 12:59 PM EDT Gender Identity Not on file Sexual Orientation Not on file Last Filed Vital Signs Vital Sign Reading Time Taken Comments Blood Pressure - - Pulse - - Temperature - - Respiratory Rate - - Oxygen Saturation - - Inhaled Oxygen Concentration - - Weight 38.6 kg (85 lb) 10/19/2023 10:45 AM EDT Height 160 cm (5' 3 ) 10/19/2023 10:45 AM EDT Body Mass Index 15.06 10/19/2023 10:45 AM EDT Plan of Treatment Health Maintenance Due Date Last Done Comments Blood Pressure 2001 Depression Screening 2005 Hepatitis C Screening 12/03/2019 DTaP,Tdap,and Td Vaccines (1 - Tdap) 2020 Cervical Cancer Screening 2022 Pap Smear 2022 COVID-19 Vaccine (1 - 2023-2 5 season) 2023 Influenza Vaccine (#1) 2023 Chlamydia and Gonorrhea Screening 10/18/2024 024 Meningococcal Vaccines Aged Out No lo nger eligible based on patient's age to complete this topic Pneumococcal Vaccine: Pediat rics (0 to 5 Years) and At-Risk Patients (6 to 64 Years) Aged Out No longer eligi ble based on patient's age to complete this topic Procedures Procedure Name Priority Date/Time Associated Diagnosis Comments CHLAMYDIA/GONORRHOE AE PCR (KAYLYNN) (CNV) Routine 10/19/2023 12:14 PM EDT from Last 3 Months or Most Recently Relevant to Health Maintenance Results * (ABNORMAL) CHLAMYDIA/GONORRHOEAE PCR (KAYLYNN) (CNV) (10/19/2023 12:14 PM EDT) CHLAMYDIA TRACHOMATIS (CONVERSION) DETECTED(A) NEG CONVERSION FROM [facility] Comment: Gen[facility]pert Amplified PCR NEISSERIA GONORRHOEAE (CONVERSION) NOT DETECTED NEG CONVERSION FROM [facility] Comment: [facility] Amplified PCR 10/19/2023 12:1 4 PM EDT 10/19/2023 1:08 PM EDT us Judith SIMS MICROBIOLOGY - GENERAL ORDER DONTE Final Result CONVERSION FROM [facility] from Last 3 Months or Most Recently Relevant to Health Maintenance Insurance [employer] Care Teams Certified Registered Dental Assistant Relationship Specialty Start Date End Date Maye Avila MD PCP - General 02/10/23
[2024-04-04 22:02] VITALS: BP 100/61; PULSE 100; RESP 12; TEMP 37.2; O2SAT 99
[2024-04-04 22:16] LABS: Appearance Urine Clear; Color Urine Yellow; Glucose Urine UA Negative (Negative); Leukocyte Esterase Urine Trace (Negative); Nitrite Urine Negative (Negative); PH >= 9.0 (5.0-9.0); UMIC TRIGGER UACC YES; Urine Blood Moderate (2+) (Negative); Urine Ketones 40 mg/dL (Negative); Urine Protein Trace mg/dL (Neg-Trace)
[2024-04-04 22:22] LABS: UPreg QC Valid YES; Urine Pregnancy NEGATIVE (NEGATIVE)
[2024-04-04 22:35] LABS: Bacteria Urine Trace (None Seen); Hyaline Casts Urine 0-2 /LPF (0-2); RBC Urine 0-2 /HPF (0-2); Squamous Epithelial Cell Urine 0-2 /HPF (0-2); WBC Urine 0-5 /HPF (0-5)
== END 2024-04-04 22:05 | disposition home or self-care (01) ==
PROVIDERS: Physician Assistant Medical; Emergency Provider Internal Medicine
DX: F41.9 Anxiety disorder, unspecified (principal); R11.2 Nausea with vomiting, unspecified; E87.6 Hypokalemia; Z03.818 Encounter for observation for suspected exposure to other biological agents ruled out
CPT/HCPCS: 0241U; 76705; 80053; 81001; 81003; 81025; 83690; 83735; 84702; 85025; 93005; 96361; 96365; 96366; 96375; 99284; J1200; J2060; J2765; J3480

== ENCOUNTER → 2024-04-04 18:06 | Outpatient (BNV) | payer MEDICAID, SELFPAY | PROVIDERS: Emergency Provider Internal Medicine; Visit Provider Internal Medicine Cardiovascular Disease | DX: R94.31 Abnormal electrocardiogram [ECG] [EKG] (principal); F41.9 Anxiety disorder, unspecified | CPT/HCPCS: 93010 ==

== ENCOUNTER → 2024-04-04 19:08 | Outpatient (BNV) | payer MEDICAID, SELFPAY | PROVIDERS: Emergency Provider Internal Medicine; Visit Provider Radiology Diagnostic Radiology | DX: R10.13 Epigastric pain (principal) | CPT/HCPCS: 76705 ==

== ENCOUNTER 2024-06-03 03:43 | Emergency (ER) | payer MEDICAID, SELFPAY ==
--- NOTE | ~2024-06-03 | XR_ITS ---
CLINICAL HISTORY: pain deformity s p slamming in door. 3 view right hand Comparison: None Findings: No acute fracture. Possible bony subluxation of the 1st carpometacarpal joint. No radiopaque foreign body. IMPRESSION: 1. No acute fracture injury identified at the right hand. Possible bony subluxation at the 1st carpometacarpal joint. Clinical correlation is advised. No dislocation injury appreciated. This document has been electronically signed by: Chaparro Barnes MD on 06/03/2024 04:53:31
--- NOTE | ~2024-06-03 | XR_ITS ---
CLINICAL HISTORY: pain deformity s p slamming in door. 4 view right wrist Comparison: None Findings: No acute fracture or dislocation injury identified. Possible bony subluxation of the 1st carpometacarpal joint. No radiopaque foreign body. IMPRESSION: 1. No acute fracture injury identified at the right wrist. Possible bony subluxation at the 1st carpometacarpal joint. Clinical correlation is advised. This document has been electronically signed by: Chaparro Barnes MD on 06/03/2024 04:56:15
[2024-06-03 03:46] VITALS: BP 97/64; PULSE 74; RESP 16; TEMP 37.2; O2SAT 97; BMI 17.3
[2024-06-03 04:23] LABS: HCG Quantitative < 2 mIU/mL
[2024-06-03 04:38] VITALS: BP 104/55; PULSE 84; RESP 16; TEMP 37; O2SAT 100
--- OUTSIDE RECORDS SUMMARY | 2024-06-03 04:59 | XMS_ITS | Encounter Summary ---
Author Organization [facility] Address [address] [place], [place] [id number] Phone Care Team Providers Care Aoc Aadc Operations Staff Officer Name Role Phone Honey Pollock PA-C Unavailable [phone] Lester Salcedo MD Unavailable [phone] Barbara Wilks MD Primary Care Provider Maye Avila MD Primary Care Provider [phone] Barbara Wilks MD Primary Care Provider Boo Arroyo LCSW Unavailable [phone] Maye Avila MD Primary Care Provider [phone] Maye Melton MD, MSc Unavailable Jenifer Rock RN Unavailable + Harsh De La Rosa Unavailable [email or web address] Sravanthi Harmon Unavailable Encounter Details Date Type Department Care Team (Late st Contact Info) Description 03/02/2023 Procedure Pass [facility] MRI [address] [place] [address] Social History Tobacco Use Types Packs/Day Years [...] high school, GED, job training, learning the Divehi language, technical skills, or developing parenting skills)? [...] Care Team (Late st Contact Info) Description 10/04/2024 2:20 PM EDT Appointment [facility] [address] [place] [address] Unknown, Unknown, Maye Abdalla MD [address] [place] [email or web address] documented as of this encounter Visit Diagnoses Not on filedocumented in this encounter Additional Health Concerns Infection Onset Date Last Indicated Resolved Time CoV-Risk 12/26/2023 12/26/2023 01/06/2024 1:21 AM EST CoV-Risk 04/03/2024 04/03/2024 04/14/2024 1:22 AM EST Assessment Noted Time PHQ-9 Depression Total Score: 9 07/07/19 23 3:12 PM EDT PHQ-2 Depression Total Score: 2 07/07/19 23 3:12 PM EDT documented as of this encounter Care Teams Aoc Aadc Operations Staff Officer Relationship Specialty Start Date End Date Barbara Wilks MD [address] [place] [address] [email or web address] PCP - General Internal Medicine 02/28/23 03/02/23 Maye Avila MD [address] [place] [address] PCP - General Internal Medicine 03/03/23 04/10/23 Barbara Wilks MD [address] [place] [address] [email or web address] PCP - General Internal Medicine 04/11/23 06/12/23 Maye Avila MD [address] [place] [address] PCP - General Internal Medicine 06/13/23 Honey Pollock PA-C Physician Cake Icer And Packer 09/27/22 Lester Salcedo MD Rheumatology 09/27/22 Boo Arroyo, NATE [address] [place] [address] [email or web address] Work 04/14/23 05/12/23 Maye Melton MD, MSc [address] [place] [address] [employer] Bottle PackerPrincipal Law Clerk Medicine 06/27/23 07/17/23 Jenifer Rock, [place] [address] [place] [address] [employer] Bottle Packer 06/27/23 Harsh Ta [address] [place] [address] [employer] Community Health Worker 06/27/23 07/17/23 Sravanthi Trinidad [address] [place] [address] [email or web address] [employer] Tax Audit Manager 06/27/23 07/17/23 documented as of this encounter Additional Source Comments The information contained in this document represents components of the legal health record. It is not the complete legal health record.[facility]
--- OUTSIDE RECORDS SUMMARY | 2024-06-03 04:59 | XMS_ITS | Clinical Summary ---
Author Organization [facility] Address [address] [place], [place] [id number] Phone Care Team Providers Care Inventory Management Specialist Name Role Phone Honey Pollock PA-C Unavailable [phone] Lester Salcedo MD Unavailable [phone] Maye Avila MD Primary Care Provider [phone] Allergies No known active allergies Medications Medication [...] Active fluticasone propionate (FLONASE) 50 mcg/actuation nasal sprayIndications:Aller gic rhinitis, unspecified seasonality, unspecified trigger 2 sprays by Nasal route daily. 11.1 mL 03/21/2024 Active rimegepant (NURTEC) 75 mg tablet Take 1 tablet (75 mg total) by mouth every other day. 8 tablet 03/21/2024 Active ondansetron (ZOFRAN-ODT) 4 MG disintegrating tablet Take 1 tablet (4 mg total) by mouth every 8 (eight) hours as needed for nausea. 10 tablet 04/03/2024 Active Active Problems Problem Noted Date Diagnosed [...] sent. Provided with home care instructions for [place]. and Lyme including continued rest and no [...] sent. Provided with home care instructions for [place]. and Lyme including continued rest and no [...] Emphasize healthy food choices, portion control. Consider plaque maker referral for ongoing support. Longitudinally monitor. Pre-menstrual syndrome 08/19/2023 Assessment & Plan (08/19/2023 9:05 AM EDT): Discussed option of long-acting contraceptives as potentially beneficial for her symptoms. Provided with patient education to review. Referred to AEROSPACE PROJECT MANAGER for further evaluation and management. Patient verbalized [...] Age-specific USPSTF screening tests reviewed. Pap per glass designer, will request prior records. Assessment & Plan [...] as above. Medication changes as above. Suggest [id number] zofran for the near term in order to maximize PO intake. Nutrition follow-up as above. Short term follow-up to reassess. Assessment & Plan (06/09/2023 12:02 PM EDT): Continue Ondansetron prn Assessment & Plan (03/31/2023 10:38 AM EST): Suspect multifactorial. She wonders if her seasonal allergies are playing a role, OK for handling tech julieth. Assessment & Plan (02/23/2023 5:18 PM [...] no relief with zofran Has appt with wood science professor next week Plan for GI referral Patient [...] contracted for safety. Contact info for [facility] and therapy provided. Readdress longitudinally. Assessment & [...] Patient has recurrent eczema. Previously followed by counter helper has not been seen in several years. [...] would like to establish care with Adult Sales Office Assistant. Referred to [facility] Rheumatology for ongoing follow-up. Resolved Problems Problem Noted Date Diagnosed Date Resolved Date Menstrual cramp 08/19/2023 10/03/2023 Assessment & Plan (08/19/2023 9:05 AM EDT): Discussed option of long-acting contraceptives as potentially beneficial for her symptoms. Provided with patient education to review. Referred to AEROSPACE PROJECT MANAGER for further evaluation and management. Patient verbalized [...] -follow-up in office 3 months Immunosuppressed status 02/25/202203/11 Assessment & Plan (02/25/2022 5:09 PM EST): Ulises Meneses. Rheumatoid arthritis of [facility] with negative rheumatoid factor 12/30/2021 03/30/2022 [...] nausea / vomiting- Symptoms present since last Oct Her labs / imaging studies unrevealing of [...] 11:13 PM EST Emergency [facility] [address] [place] [address] Rafael Flores MD Discharge Disposition: Home or Self Care 03/22/2024 Orders Only [facility] Physicians - Medical Records - [place] [address] [place] [address] ProviderAdeline MD 03/21/2024 Refill [facility] [address] [place] [address] Gay Torrez MD Medication Refill from Last 3 Months Immunizations Name Administration Dates Next Due DTaP 02/03/2006, 4,06/14/2002,04/19,03/09/2002 [id number] FORMULATION 01/07/2009 HPV,quadrivalent 11/14/2013 HPV9 12/19/2014 Hepatitis [...] Answer Date Recorded Are you interested in more education? Not on kateryna e 09/16/2023 Are you concerned about your learning, performance, or behavior in school? No 09/16/2023 No 09/16/2023 Yes 09/16/2023 Food Answer Date Recorded [...] Info) Description 10/04/2024 2:20 PM EDT Appointment [facility] [address] [place] [address] Unknown, Unknown, Maye Abdalla MD [address] [place] [address] [email or web address] Health Maintenance Due Date Last Done Comments HIV ONE-TIME SCREENING (18-65 YEARS) 12/03/2019 INFLUENZA VACCINE (#1) 2023 8, 03/31/2017, 12/22/2015, Additional history exists COVID-19 VACCINE (2023- season) 2023 Adult Td,Tdap Booster 11/15/2023 11/14/2013 DEPRESSION SCREENING 10/13/2024 10/14/2023, 10/14/19 24 CHLAMYDIA SCREENING 10/18/2024 10/19/2023, 07/07/2022, 09/29/2018 SMOKING Hx and SMOKELESS TOBACCO SCREENING 04/03/2025 04/03/2024 PAP SMEAR 01/07/2026 01/07/2023 PNEUMOCOCCAL VACCINES (0-49 years) Aged Out 06/14/2002, 04/19/2002, 03/09/2002 No longer eligible based on patient's age to complete this topic HIB VACCINES Completed 05/22/2003, 09/2002, 04/19/2002, Additional history exists MENINGOCOCCAL VACCINES (ACWY) Aged Out 11/14/2013 No longer eligible based on patient's age to complete this topic HPV VACCINES Completed 12/19/2014, 11/14/2013 HEPATITIS C SCREENING Completed 11/25/2021, 022 HEPATITIS [...] hepatitis C screening test 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 Months or Most Recently Relevant to Health Maintenance Results * ECG 12-LEAD (04/03/2024 8:46 PM EST) Ventricular Rate EKG/MIN 126 BPM [facility] Atrial Rate 126 BPM [facility] MO Interval 128 ms [facility] QRS Duration 88 ms [facility] QT Interval 326 ms [facility] QTC Interval 472 ms [facility] P Seco 86 degrees [facility] R Wave Seco 108 degrees [facility] T Wave Seco 43 degrees [facility] 04/03/2024 8:46 PM EST 04/04/2024 12:23 PM EST Narrative [facility] - 04/04/2024 12:23 PM EST Sinus tachycardia Right atrial enlargement Rightward axis Pulmonary disease pattern Nonspecific ST abnormality Abnormal ECG No previous ECGs available Confirmed by Oswlado Bolden ([id number]) on 04/04/2024 12:23:26 PM Laci Holt MD ECG ORDERABLES Performing Organization Address City/[facility]/ZIP Co de Phone Number [facility] * (ABNORMAL) Urinalysis w/reflex Urine Culture (04/03/2024 7:54 PM EST) COLOR Yellow Yellow [facility] CLARITY CLOUDY [facility] GLUCOSE Negative Negative [facility] BILI 1+(A) Negative [facility] KETONES Trace(A) Negative [facility] SPECIFIC GRAVITY 1.020 1.005 - 1.030 [facility] BLOOD 3+(A) Negative [facility] PH 6.5 5.0 - 8.0 [facility] Protein-UA 1+(A) Negative [facility] NITRITE Negative Negative [facility] Leukocyte esterase, ur Negative Negative [facility] Urine (Urine) 04/03/2024 7:5 4 PM EST 04/03/2024 8:01 PM EST Rafael Flores MD URINE ORDERABLES [facility] [address] [place] [address] * Urine Culture (04/03/2024 7:54 PM EST) Special Requests None Reflexed from [id number] 04/03/2024 8:28 PM EST [facility] Urine Culture >100,000 colony forming units per mL PROBABLE CORYNEBACTERIUM SPECIES OF TWO MORPHOLOGIES 04/05/2024 11:25 AM EST [facility] Urine 04/03/2024 7:54 PM EST 04/03/2024 8:01 PM EST Rafael Flores MD MICROBIOLOGY - G ENERAL ORDERABLES Performing Organization Address [facility] Co de Phone Number [address] [address] * (ABNORMAL) Urine sediment (04/03/2024 7:54 PM EST) WBC 11-20(A) NONE SEEN /hpf [facility] RBC 3-5(A) NONE SEEN /hpf [facility] URINE EPITHELIAL 5-10(A) NONE SEEN [facility] MUCUS 3+(A) NONE SEEN /hpf [facility] BACTERIA 2+(A) NONE SEEN /hpf [facility] 04/03/2024 7:54 PM EST 04/03/2024 8:01 PM EST Rafael Flores MD URINE ORDERABLES Performing Organization Address [facility] Co de Phone Number [address] [address] * HCG, serum qualitative (04/03/2024 7:41 PM EST) HCG, QUALITATIVE Negative Negative IU/L [facility] Blood 04/03/2024 7:41 PM EST 04/03/2024 7:44 PM EST Rafael Flores MD LAB BLOOD ORDERA BLES Performing Organization Address [facility] Co de Phone Number [address] [address] * (ABNORMAL) LFTs (hepatic panel) (04/03/2024 7:41 PM EST) ALKALINE PHOSPHATASE 76 39 - 117 U/L [facility] TOTAL BILIRUBIN 1.3(H) 0.0 - 1.2 mg/dL [facility] DIRECT BILIRUBIN 0.4(H) 0.0 - 0.2 mg/dL [facility] Bilirubin (Indirect) 0.9 0 - 1.5 mg/dL [facility] AST 16 0 - 37 U/L [facility] ALT 6 0 - 40 U/L [facility] TOTAL PROTEIN 9.4(H) 6.5 - 8.0 g/dL [facility] ALBUMIN 4.7 3.9 - 4.8 g/dL [facility] GLOBULIN 4.7 1 - 4.8 g/dL [facility] A/G Ratio 1.00 1.00 - 4.80 RATIO [facility] Blood 04/03/2024 7:41 PM EST 04/03/2024 7:44 PM EST Rafael Flores MD LAB BLOOD ORDERA BLES Performing Organization Address City/State/[facility] Co de Phone Number [facility] [address] [place] [address] * (ABNORMAL) CBC and differential (04/03/2024 7:41 PM EST) WBC 9.06 4.00 - 11.00 K/uL [facility] RBC 5.46(H) 4.00 - 5.20 M/uL [facility] HGB 15.8 12.0 - 16.0 g/dL [facility] HCT 44.5 36.0 - 46.0 % [facility] PLT 469(H) 150 - 450 K/uL [facility] MCV 81.5 80.0 - 100.0 fL [facility] MCH 28.9 27.0 - 31.0 pg [facility] MCHC 35.5 32.0 - 36.0 g/dL [facility] RDW 15.1(H) 11.5 - 14.5 % [facility] MPV 8.4 8.4 - 12.0 fL [facility] NRBC 0.00 0.00 /100 WBCs [facility] ABSOLUTE NRBC 0.00 0.00 K/uL [facility] DIFF METHOD Auto [facility] NEUTS 53.1 48.0 - 76.0 % [facility] LYMPHS 32.2 18.0 - 41.0 % [facility] MONOS 13.1(H) 4.0 - 11.0 % [facility] EOS 1.1 0.0 - 5.0 % [facility] BASOS 0.3 0.0 - 1.5 % [facility] Granulocytes, immature (%) 0.2 0.0 - 0.9 % [facility] ABSOLUTE NEUTS 4.80 1.92 - 7.60 K/uL [facility] ABSOLUTE LYMPHS 2.92 0.72 - 4.10 K/uL [facility] ABSOLUTE MONOS 1.19(H) 0.16 - 1.10 K/uL [facility] ABSOLUTE EOS 0.10 0.00 - 0.50 K/uL [facility] ABSOLUTE BASOS 0.03 0.00 - 0.15 K/uL [facility] Granulocytes, immature 0.02 0.00 - 0.09 K/uL [facility] Blood 04/03/2024 7:41 PM EST 04/03/2024 7:44 PM EST Rafael Flores MD LAB BLOOD ORDERA BLES [address] [address] * Magnesium (04/03/2024 7:41 PM EST) MAGNESIUM 2.3 1.6 - 2.6 mg/dL [facility] 04/03/2024 7:41 PM EST 04/03/2024 7:44 PM EST Rafael Flores MD LAB BLOOD ORDERA BLES Performing Organization Address City/[facility]/ZIP Co de Phone Number [address] [address] * (ABNORMAL) Lipase (04/03/2024 7:41 PM EST) LIPASE 14(L) 16 - 63 U/L [facility] Blood 04/03/2024 7:41 PM EST 04/03/2024 7:44 PM EST Rafael Flores MD LAB BLOOD ORDERA BLES Performing Organization Address [facility]/ZIP Co de Phone Number [address] [address] * (ABNORMAL) Basic metabolic panel (04/03/2024 7:41 PM EST) SODIUM 128(L) 133 - 146 mmol/L [facility] CHLORIDE 81(L) 96 - 108 mmol/L [facility] POTASSIUM 2.8(L) 3.3 - 5.1 mmol/L [facility] CO2 30 21 - 35 mmol/L [facility] BUN 9 6 - 19 mg/dL [facility] CREATININE 0.70 0.5 - 1.5 mg/dL [facility] GLUCOSE 114(H) 70 - 99 mg/dL [facility] CALCIUM 10.7(H) 8.4 - 10.3 mg/dL [facility] EGFR >120 >59 mL/min/1.7 3m2 [facility] Comment:Estimated glomerular filtration rate calculated using the CKD-EPI refit equation. ANION GAP 20 10 - 20 mmol/L [facility] Blood 04/03/2024 7:41 PM EST 04/03/2024 7:44 PM EST Rafael Flores MD LAB BLOOD ORDERA BLES Performing Organization Address [facility]/ZIP Co de Phone Number [address] [address] * (ABNORMAL) POCT Glucose (04/03/2024 7:33 PM EST) Glucose 113(A) 70 - 100 mg/dL Rafael Flores MD POINT OF CARE TE ST ORDERABLES * (ABNORMAL) POCT Glucose (04/03/2024 7:29 PM EST) Glucose, POCT 113(H) 70 - 100 mg/dL [facility] 04/03/2024 7:29 PM EST 04/03/2024 7:34 PM EST Unknown Unknown MD POINT OF CARE TEST O RDERABLES Performing Organization Address [facility] de Phone Number [address] [address] * COVID Pandemic Respiratory Viral Order (PRO) (04/03/2024 7:27 PM EST) Test Ordered COVID, Flu has been ordered [facility] Specimen Source/Descriptio n NASOPHARYNGEAL SWAB [facility] Influenza A PCR Not Detected Not Detected [facility] Influenza B PCR Not Detected Not Detected [facility] SARS-CoV 2 (COVID-19) PCR Not Detected Not Detected [facility] Comment: SARS-CoV-2 not detected Negative results do not preclude SARS-CoV-2 infection and should not be used as the sole basis for patient management decisions. Negative results must be combined with clinical observations, patient history, and epidemiological information. Other (Nasopharyngeal swab) 04/03/2024 7:27 PM EST 04/03/2024 7:35 PM EST Rafael Flores MD BODY FLUIDS AND STOOLS ORDERABLES Performing Organization Address [facility] Co de Phone Number [address] [address] * Outside Lab (03/14/2024 12:40 PM EST) [...] (ABNORMAL) CHLAMYDIA/GC PCR (10/19/2023 12:14 PM EDT) C. trachomatis DNA DETECTED(A) NEG [facility] Comment:Genexpert Amplified PCR GC rRNA NOT DETECTED [facility] Comment:Genexpert Amplified PCR 10/19/2023 12:1 4 PM EDT 10/19/2023 1:08 PM EDT Judith SIMS LAB BLOOD ORDERABLES [facility] [address] [place] [address], [facility] [phone] * PAP SMEAR FOR RESULT ENTRY ONLY (01/07/2023) Pap smear LGSIL Historical Provider MD DAVIS MAINTENANC E * Hepatitis C antibody, qualitative (11/25/2021 10:36 AM EDT) HCV ANTIBODY Non-Reacti ve Non-Reacti ve [facility], [facility] Blood 11/25/2021 10:3 6 AM EDT 11/25/2021 11:01 AM EDT Lester Salcedo MD LAB BLOOD ORDER DONTE [facility], [address] [address], [facility] from Last 3 Months or Most Recently Relevant to Health Maintenance Care Teams Inventory Management Specialist Relationship Specialty Start Date End Date Maye Avila MD [address] [place] [address] [email or web address] PCP - General Internal Medicine 06/13/23 Honey Pollock PA-C [email or web address] Physician Position Clerk 09/27/22 Lester Salcedo MD [email or web address] Rheumatology 09/27/22 Additional Source Comments The information contained in this document represents components of the legal health record. It is not the complete legal health record.[facility]
--- OUTSIDE RECORDS SUMMARY | 2024-06-03 04:59 | XMS_ITS | Encounter Summary ---
Author Organization [facility] Address [address] [place] [address] Phone Care Team Providers Care Greige Goods Inspector Name Role Phone Maye Avila MD Primary Care Provider [phone] Honey Pollock PA-C Unavailable [phone] Lester Salcedo MD Unavailable [phone] Maye Avila MD Primary Care Provider [phone] Barbara Wilks MD Primary Care Provider Maye Avila MD Primary Care Provider [phone] Barbara Wilks MD Primary Care Provider Maye Avila MD Primary Care Provider [phone] Barbara Wilks MD Primary Care Provider Boo Arroyo LCSW Unavailable [phone] Maye Avila MD Primary Care Provider [phone] Maye Melton MD, MSc Unavailable + Jenifer Rock RN Unavailable + Harsh De La Rosa Unavailable [email or web address] Unavailable Encounter Details Date Type Department Care Team (Late st Contact Info) Description 08/06/2022 Procedure Pass [facility] - Endoscopy - [place] [address] [place] [address] Social History Tobacco Use Types Packs/Day Years [...] high school, GED, job training, learning the [place] Citizen language, technical skills, or developing parenting skills)? [...] is your housing situation today? I have bacate juarez 07/06/2022 How many times have you moved in the past 12 tue ths? Two or more times 07/06/2022 Paying for [...] Description 10/04/2024 2:20 PM EDT Appointment [facility] [address] [place] [address] Unknown, Unknown, Maye Abdalla MD [address] [place] [address] [email or web address] documented as of this encounter Visit Diagnoses [...] documented as of this encounter Care Teams Greige Goods Inspector Relationship Specialty Start Date End Date Maye Avila MD [address] [place] [email or web address] PCP - General Internal Medicine 12/30/21 10/17/22 Maye Avila MD [address] [place] [address] [email or web address] PCP - General Internal Medicine 10/18/22 12/26/22 Barbara Wilks MD [address] [place] [address] [email or web address] PCP - General Internal Medicine 12/27/22 01/19/23 Maye Avila MD [address] [place] [address] [email or web address] PCP - General Internal Medicine 01/20/23 02/27/23 Barbara Wilks MD [address] [place] [address] [email or web address] PCP - General Internal Medicine 02/28/23 03/02/23 Maye Avila MD [address] [place] [address] [email or web address] PCP - General Internal Medicine 03/03/23 04/10/23 Barbara Wilks MD [address] [place] [address] [email or web address] PCP - General Internal Medicine 04/11/23 06/12/23 Maye Avila MD [address] [place] [address] [email or web address] PCP - General Internal Medicine 06/13/23 Honey Pollock PA-C [address] [place] [address] [email or web address] Physician Clinic Scheduler 09/27/22 Lester Salcedo MD [address] [place] [address] [email or web address] Rheumatology 09/27/22 Boo Arroyo LCSW [address] [place] [address] [email or web address] iCMP Social Work 04/14/23 05/12/23 Maye Melton MD, MSc [address] [place] [phone] [employer] Plus Battery HandRoller Staker Medicine 06/27/23 07/17/23 Jenifer Rock RN [address] [place] [address] [employer] Battery Hand 06/27/23 Harsh Ta [address] [place] [address] [employer] Plus Community Health Worker 06/27/23 07/17/23 Sravanthi Trinidad [address] [place], [place] [phone] [employer] Plus Director Biologics 06/27/23 07/17/23 documented as of this encounter Additional Source Comments The information contained in this document represents components of the legal health record. It is not the complete legal health record.[facility]
--- OUTSIDE RECORDS SUMMARY | 2024-06-03 05:00 | XMS_ITS | Encounter Summary ---
Author Organization [facility] Address [address] [place], [place] [id number] Phone Care Team Providers Care Boilermaker Loftsman Name Role Phone Honey Pollock PA-C Unavailable [phone] Lester Salcedo MD Unavailable [phone] Maye Avila MD Primary Care Provider [phone] Barbara Wilks MD Primary Care Provider Maye Avila MD Primary Care Provider [phone] Barbara Wilks MD Primary Care Provider Boo Arroyo LCSW Unavailable [phone] Maye Avila MD Primary Care Provider [phone] Maye Melton MD, MSc Unavailable + Jenifer Rock RN Unavailable + Harsh De La Rosa Unavailable [email or web address] Harmon Unavailable + Encounter Details Date Type Department Care Team (Late st Contact Info) Description 01/25/2023 Procedure Pass [facility] Physicians - Endoscopy - [place] [address] [place] [address] Social History Tobacco Use Types Packs/Day Years [...] high school, GED, job training, learning the French language, technical skills, or developing parenting skills)? [...] Not on file 07/06/2022 Benefits received from [place]? Not on file 06/09 WIC is a [...] Info) Description 10/04/2024 2:20 PM EDT Appointment [facility] [address] [place] [address] Unknown, Unknown, Maye Abdalla MD [address] [place] [address] [email or web address] documented as of this encounter Visit Diagnoses Not on filedocumented in this encounter Additional Health Concerns Infection Onset Date Last Indicated Resolved Time CoV-Risk 12/26/2023 12/26/2023 01/06/2024 1:21 AM EST CoV-Risk 04/03/2024 04/03/2024 04/14/2024 1:22 AM EST Assessment Noted Time PHQ-9 Depression Total Score: 9 07/07/19 3:12 PM EDT PHQ-2 Depression Total Score: 2 07/07/19 23 3:12 PM EDT documented as of this encounter Care Teams Boilermaker Loftsman Relationship Specialty Start Date End Date Maye Avila MD [address] [place] [address] [email or web address] PCP - General Internal Medicine 01/20/23 02/27/23 Barbara Wilks MD [address] [place] [address] [email or web address] PCP - General Internal Medicine 02/28/23 03/02/23 Maye Avila MD [address] [place] [address] PCP - General Internal Medicine 03/03/23 04/10/23 Barbara Wilks MD [address] [place] [address] [email or web address] PCP - General Internal Medicine 04/11/23 06/12/23 Maye Avila MD [address] [place] [address] PCP - General Internal Medicine 06/13/23 Honey Pollock PA-C Physician Galley Boy 09/27/22 Lester Salcedo MD Rheumatology 09/27/22 Boo Arroyo, [address] [address] [email or web address] 04/14/23 05/12/23 Maye Melton MD, MSc [address] [place] [address] [employer] Plus Hvac InstructorSupervisor Paper Coating Medicine 06/27/23 07/17/23 Jenifer Rock, [place] [address] [place] [address] [employer] Plus Hvac Instructor 06/27/23 Harsh Ta [address] [place] [address] [employer] Plus Community Health Worker 06/27/23 07/17/23 Sravanthi Trinidad [address] [place] [address] [employer] Plus Tool And Die Designer 06/27/23 07/17/23 documented as of this encounter Additional Source Comments The information contained in this document represents components of the legal health record. It is not the complete legal health record.[facility]
--- OUTSIDE RECORDS SUMMARY | 2024-06-03 05:00 | XMS_ITS | Encounter Summary ---
Author Organization [facility] Address [address] [place] [address] Phone Care Team Providers Care Gum Sprayer Name Role Phone Mariaelena Howell MD Primary Care Provider + [phone] Tari Palacios Primary Care Provider [phone] Maye Avila MD Primary Care Provider +02-14 Maye Avila MD Primary Care Provider +02-14 Honey Pollock PA-C Unavailable + Lester Salcedo MD Unavailable [phone] Maye Avila MD Primary Care Provider +02-14 Barbara Wilks MD Primary Care Provider + Maye Avila MD Primary Care Provider +02-14 Barbara Wilks MD Primary Care Provider + Maye Avila MD Primary Care Provider +02-14 Barbara Wilks MD Primary Care Provider + Boo Arroyo LCSW Unavailable +[phone] Maye Avila MD Primary Care Provider +02-14 Maye Melton MD, MSc Unavailable Jenifer Rock RN Unavailable + Harsh De La Rosa Unavailable [email or web address] [email or web address] Harmon Unavailable Encounter Details Date Type Department Care Team (Late st Contact Info) Description 01/14/2021 Transcribe Orders Virtual Department [address] [place] [address] Mariaelena Howell MD [address] [place] [address] Nausea (Primary Dx); LLQ pain Social History [...] Department Care Team (Late Contact Info) Description 10/04/2024 2:20 PM EDT Appointment [facility] [address] [place] [phone] Unknown, Unknown, Maye Abdalla MD [address] [place] [address] documented as of this encounter Results * [...] CoV-Risk 04/03/2024 04/03/2024 04/14/2024 1:22 AM EST documented as of this encounter Care Teams Gum Sprayer Relationship Specialty Start Date End Date Mariaelena Howell MD [address] [place] [address] PCP - General Pediatrics 07/16/20 08/23/21 Tari Palacios PA [address] [place] [address] [email or web address] PCP - General 08/24/21 10/04/21 Maye Avila MD [address] [place] [address] [email or web address] PCP - General Internal Medicine 10/05/21 12/29/21 Maye Avila MD [address] [place] [address] PCP - General Internal Medicine 12/30/21 10/17/22 Maye Avila MD [address] [place] [address] PCP - General Internal Medicine 10/18/22 12/26/22 Barbara Wilks MD [address] [place] [address] [email or web address] PCP - General Internal Medicine 12/27/22 01/19/23 Maye Avila MD [address] [place] [address] [email or web address] PCP - General Internal Medicine 01/20/23 02/27/23 Barbara Wilks MD [address] [place] [address] [email or web address] PCP - General Internal Medicine 02/28/23 03/02/23 Maye Avila MD [address] [place] [address] [email or web address] PCP - General Internal Medicine 03/03/23 04/10/23 Barbara Wilks MD [address] [place] [address] [email or web address] PCP - General Internal Medicine 04/11/23 06/12/23 Maye Avila MD [address] [place] [address] [email or web address] PCP - General Internal Medicine 06/13/23 Honey Pollock PA-C [address] [place] [address] [email or web address] Physician Sustainable Communities Designer 09/27/22 Lester Salcedo MD [address] [place] [address] Rheumatology 09/27/22 Boo Arrooy, NATE [address] [place] [address] [email or web address] Social Work 04/14/23 05/12/23 Maye Melton MD, MSc [address] [place] [address] [email or web address] iCM Plus After School TeacherAssistant Broker Medicine 06/27/23 07/17/23 Jenifer Rock RN [address] [place] [address] [facility] Plus After School Teacher 06/27/23 4 Harsh De La Rosa [address] [place] [address] [email or web address] [facility] Plus Community Health Worker 06/27/23 07/17/23 Sravanthi Trinidad [address] [place] [address] [email or web address] [facility] Plus Hedge Fund Accountant 06/27/23 07/17/23 documented as of this encounter Additional Source Comments The information contained in this document represents components of the legal health record. It is not the complete legal health record.[facility]
--- OUTSIDE RECORDS SUMMARY | 2024-06-03 05:00 | XMS_ITS | Encounter Summary ---
Author Organization [facility] Address [address] [place] [address] Phone Care Team Providers Care Medical Accounting Clerk Name Role Phone Mariaelena Howell MD Primary Care Provider + [phone] Tari Palacios Primary Care Provider [phone] Maye Avila MD Primary Care Provider +02-14 Maye Avila MD Primary Care Provider +02-14 Honey Pollock PA-C Unavailable + Lester Salcedo MD Unavailable [phone] Maye Avila MD Primary Care Provider +02-14 Barbara Wilks MD Primary Care Provider + Maye Avila MD Primary Care Provider +02-14 Barbara Wilks MD Primary Care Provider + Maye Avila MD Primary Care Provider +02-14 Barbara Wilks MD Primary Care Provider + Boo Arroyo LCSW Unavailable +[phone] Maye Avila MD Primary Care Provider +02-14 Maye Melton MD, MSc Unavailable Jenifer Rock RN Unavailable + Harsh De La Rosa Unavailable [email or web address] Sravanthi Harmon Unavailable Encounter Details Date Type Department Care Team (Late st Contact Info) Description 01/29/2021 Procedure Pass [facility] [address] [place] [address] Social History Tobacco Use Types Packs/Day Years [...] Info) Description 10/04/2024 2:20 PM EDT Appointment [address] [phone] Unknown, Unknown, Maye Abdalla MD [address] [place] [email or web address] documented as of this encounter Visit Diagnoses [...] documented as of this encounter Care Teams Medical Accounting Clerk Relationship Specialty Start Date End Date Mariaelena Howell MD [address] [place] [address] PCP - General Pediatrics 07/16/20 08/23/21 Tari Palacios PA [address] [place] [address] [email or web address] PCP - General 08/24/21 10/04/21 Maye Avila MD [address] [place] [address] [email or web address] PCP - General Internal Medicine 10/05/21 12/29/21 Maye Avila MD [address] [place] [address] PCP - General Internal Medicine 12/30/21 10/17/22 Maye Avila MD [address] [place] [address] PCP - General Internal Medicine 10/18/22 12/26/22 Barbara Wilks MD [address] [place] [address] [email or web address] PCP - General Internal Medicine 12/27/22 01/19/23 Maye Avila MD [address] [place] [address] PCP - General Internal Medicine 01/20/23 02/27/23 Barbara Wilks MD [address] [place] [address] [email or web address] PCP - General Internal Medicine 02/28/23 03/02/23 Maye Avila MD [address] [place] [address] [email or web address] PCP - General Internal Medicine 03/03/23 04/10/23 Barbara Wilks MD [address] [place] [address] [email or web address] PCP - General Internal Medicine 04/11/23 06/12/23 Maye Avila MD [address] [place] [address] PCP - General Internal Medicine 06/13/23 Honey Pollock PA-C [address] [place] [address] [email or web address] Physician Community Relations Manager 09/27/22 Lester Salcedo MD [address] [place] [address] Rheumatology 09/27/22 Boo Arroyo, [address] [place] [address] [email or web address] [facility] Social Work 04/14/23 05/12/23 Maye Melton MD, MSc [address] [place] [address] [email or web address] [employer] Plus Weaver Dobby LoomLoose Hand Packer Medicine 06/27/23 07/17/23 Jenifer Rock RN [address] [place] [address] [employer] Plus Weaver Dobby Loom 06/27/23 Harsh Ta [address] [place] [address] [employer] Plus Community Health Worker 06/27/23 07/17/23 Sravanthi Trinidad [address] [place] [address] [email or web address] iCMP Plus Lab Director 06/27/23 07/17/23 documented as of this encounter Additional Source Comments The information contained in this document represents components of the legal health record. It is not the complete legal health record.[facility]
--- OUTSIDE RECORDS SUMMARY | 2024-06-03 05:00 | XMS_ITS | Encounter Summary ---
Author Organization [facility] Address [address] [place], [place] [id number] Phone Care Team Providers Care Painting Worker Name Role Phone Honey Pollock PA-C Unavailable [phone] Lester Salcedo MD Unavailable [phone] Barbara Wilks MD Primary Care Provider Maye Avila MD Primary Care Provider +[phone] Barbara Wilks MD Primary Care Provider Boo Arroyo LCSW Unavailable +02-14 [phone] Maye Avila MD Primary Care Provider +[phone] Maye Melton MD, MSc Unavailable Jenifer Rock RN Unavailable + Harsh De La Rosa Unavailable [email or web address] Sravanthi Harmon Unavailable Encounter Details Date Type Department Care Team (Late st Contact Info) Description 03/02/2023 Procedure Pass [facility] [address] [facility], [address]th [place] [address] Social History Tobacco Use Types Packs/Day Years [...] high school, GED, job training, learning the Turkmen language, technical skills, or developing parenting skills)? [...] Info) Description 10/04/2024 2:20 PM EDT Appointment [facility] [address] [place] [address] Unknown, Unknown, Maye Abdalla MD [address] [place] [address] [email or web address] documented as of this encounter Visit Diagnoses [...] documented as of this encounter Care Teams Painting Worker Relationship Specialty Start Date End Date Barbara Wilks MD [address] [place] [address] [email or web address] PCP - General Internal Medicine 02/28/23 03/02/23 Maye Avila MD [address] [place] [address] PCP - General Internal Medicine 03/03/23 04/10/23 Barbara Wilks MD [address] [place] [address] [email or web address] PCP - General Internal Medicine 04/11/23 06/12/23 Maye Avila MD [address] [place] [address] PCP - General Internal Medicine 06/13/23 Honey Pollock PA-C Physician Automotive Painter 09/27/22 Lester Salcedo MD Rheumatology 09/27/22 Boo Arroyo, NATE [address] [place] [address] [email or web address] 04/14/23 05/12/23 Maye Melton MD, MSc [address] [place] [address] iCMP Plus Cheese MakerBushing Press Operator Medicine 06/27/23 07/17/23 Jenifer Rock, WALESKA [address] [place] [address] [employer] Plus Cheese Maker 06/27/23 Harsh Ta [address] [place] [address] [employer] Plus Community Health Worker 06/27/23 07/17/23 Sravanthi Trinidad [address] [place] [address] [email or web address] iCMP Plus Financial Compliance Officer 06/27/23 07/17/23 documented as of this encounter Additional Source Comments The information contained in this document represents components of the legal health record. It is not the complete legal health record.[facility]
--- OUTSIDE RECORDS SUMMARY | 2024-06-03 05:00 | XMS_ITS | Encounter Summary ---
Author Organization [facility] Address [address] [place] [address] Care Team Providers Care Partition Assembly Machine Operator Name Role Phone Maye Avila MD Primary Care Provider [phone] Reason for Visit * Reason Onset Date Comments PAP TRACKING ABSALOM 04/02/2024 Encounter Details Date Type Department Care Team (Late st Contact Info) Description 04/02/[address] [address] Celine Can RN PAP TRACKING ABSALOM Social History Tobacco Use Types Packs/Day Years Used Date Smoking Tobacco: Never Assessed Comments Unknown Sex and Gender Information Value Date Recorded Sex Assigned at Not on file Legal Sex Female 12:59 PM EDT Gender Identity Not on file Sexual Orientation Not on file documented as of this encounter Miscellaneous Notes * Telephone Encounter - Vira Acharya [place] - 05/30/2024 8:12 AM EDT 2nd reminder; letter printed and mailed to patient, patient due for pap 01/2024 * Telephone Encounter - Celine Can RN [...] on filedocumented in this encounter Care Teams Partition Assembly Machine Operator Relationship Specialty Start Date End Date Maye Avila MD PCP - General 02/10/23 documented as of this encounter
--- OUTSIDE RECORDS SUMMARY | 2024-06-03 05:00 | XMS_ITS | Encounter Summary ---
[place] [address] Phone Care Team Providers Care Head Up Operator Name Role Phone Mariaelena Howell MD Primary Care Provider + [phone] Mariaelena Howell MD Primary Care Provider + [phone] Tari Palacios Primary Care Provider [phone] Maye Avila MD Primary Care Provider +02-14 Maye Avila MD Primary Care Provider +02-14 Honey Pollock PA-C Unavailable + Lester Salcedo MD Unavailable [phone] Maye Avila MD Primary Care Provider +02-14 Barbara Wilks MD Primary Care Provider + Maye Avila MD Primary Care Provider +02-14 Barbara Wilks MD Primary Care Provider + Maye Avila MD Primary Care Provider +02-14 Barbara Wilks MD Primary Care Provider + Boo Arroyo LCSW Unavailable +[phone] Maye Avila MD Primary Care Provider [phone] Maye Melton MD, MSc Unavailable Jenifer Rock RN Unavailable [phone] Harsh De La Rosa Unavailable [email or web address] Sravanthi Trinidad Unavailable Encounter Details Date Type Department Care Team (Late st Contact Info) Description 07/15/2020 Procedure Pass [facility], Ct Scan - [address] [address] Social History Tobacco Use Types Packs/Day Years [...] Info) Description 10/04/2024 2:20 PM EDT Appointment [facility] [address] [place] [address] Unknown, Unknown, MD Avila, Maye Addison MD [address] [place] [address] [email or web address] documented as of this encounter Visit Diagnoses [...] documented as of this encounter Care Teams Head Up Operator Relationship Specialty Start Date End Date Mariaelena Howell MD [address] [place] [address] PCP - General Pediatrics 07/16/20 08/23/21 Mariaelena Howell MD [address] [place] [address] PCP - General 07/15/20 07/15/20 Tari Palacios PA [address] [place] [address] [email or web address] PCP - General 08/24/21 10/04/21 Maye Avila MD [address] [place] [address] PCP - General Internal Medicine 10/05/21 12/29/21 Maye Avila MD [address] [place] [email or web address] PCP - General Internal Medicine 12/30/21 10/17/22 Maye Avila MD [address] [place] [address] PCP - General Internal Medicine 10/18/22 12/26/22 Barbara Wilks MD [address] [place] [address] [email or web address] PCP - General Internal Medicine 12/27/22 01/19/23 Maye Avila MD [address] [place] [address] [email or web address] PCP - General Internal Medicine 01/20/23 02/27/23 Barbara Wilks MD [address] [place] [address] [email or web address] PCP - General Internal Medicine 02/28/23 03/02/23 Maye Avila MD [address] [place] [address] [email or web address] PCP - General Internal Medicine 03/03/23 04/10/23 Barbara Wilks MD [address] [place] [address] [email or web address] PCP - General Internal Medicine 04/11/23 06/12/23 Maye Avila MD [address] [place] [address] [email or web address] PCP - General Internal Medicine 06/13/23 Honey Pollock PA-C [address] [place] [address] [email or web address] Physician Prefitter Doors 09/27/22 Lester Salcedo MD [address] [place] [address] [email or web address] Rheumatology 09/27/22 Boo Arroyo, [address] [address] [email or web address] [facility] Social Work 04/14/23 05/12/23 Maye Melton MD, MSc [address] [place] [address] [email or web address] [facility] Plus Window/Distribution ClerkPrepared Foods Team Leader Medicine 06/27/23 07/17/23 Jenifer Rock RN [address] [place] [address] [email or web address] [facility] Plus Window/Distribution Clerk 06/27/23 Harsh Ta [address] [place] [address] [email or web address] [facility] Plus Community Health Worker 06/27/23 07/17/23 Sravanthi Trinidad [address] [place] [address] [email or web address] [facility] Plus Loss Prevention Coordinator 06/27/23 07/17/23 documented as of this encounter Additional Source Comments The information contained in this document represents components of the legal health record. It is not the complete legal health record.[facility]
--- OUTSIDE RECORDS SUMMARY | 2024-06-03 05:00 | XMS_ITS | Clinical Summary ---
Author Organization [facility] Address [address] [place] [address] Care Team Providers Care System Planning Engineer Name Role Phone Maye Avila MD Primary Care Provider [phone] Medications LORazepam (ATIVAN) 0.5 MG tablet 0.5 [...] Type Department Care Team Description 04/02/[address] [address] Celine Can, RN PAP TRACKING [...] Screening 2022 Pap Smear 2022 COVID-19 Vaccine ( - 2023-2 5 season) 2023 Influenza Vaccine (Season Ended) 2024 Chlamydia and Gonorrhea Screening 10/18/2024 024 Meningococcal [...] CHLAMYDIA TRACHOMATIS (CONVERSION) DETECTED(A) NEG CONVERSION FROM [employer] Comment: Genexpert Amplified PCR NEISSERIA GONORRHOEAE (CONVERSION) NOT DETECTED NEG CONVERSION FROM [facility] Comment: [facility] Amplified PCR 10/19/2023 12:1 4 PM EDT 10/19/2023 1:08 PM EDT us Judith SIMS MICROBIOLOGY - GENERAL ORDER DONTE Final Result CONVERSION FROM [facility] from Last 3 Months or Most Recently Relevant to Health Maintenance Insurance [employer] Care Teams System Planning Engineer Relationship Specialty Start Date End Date Maye Avila MD PCP - General 02/10/23
--- OUTSIDE RECORDS SUMMARY | 2024-06-03 05:00 | XMS_ITS | Encounter Summary ---
Author Organization [facility] Address [address] [place] [address] Phone Care Team Providers Care Neon Electrician Name Role Phone Mariaelena Howell MD Primary Care Provider + [phone] Tari Palacios Primary Care Provider [phone] Maye Avila MD Primary Care Provider +02-14 Maye Avila MD Primary Care Provider +02-14 Honey Pollock PA-C Unavailable + Lester Salcedo MD Unavailable [phone] Maye Avila MD Primary Care Provider +02-14 Barbara Wilks MD Primary Care Provider + Maye Avila MD Primary Care Provider +02-14 Barbara Wilks MD Primary Care Provider + Maye Avila MD Primary Care Provider +02-14 Barbara Wilks MD Primary Care Provider + Boo Arroyo LCSW Unavailable +[phone] Maye Avila MD Primary Care Provider +02-14 Maye Melton MD, MSc Unavailable Jenifer Rock RN Unavailable + Harsh De La Rosa Unavailable [email or web address] Sravanthi Harmon Unavailable Encounter Details Date Type Department Care Team (Late st Contact Info) Description 01/13/2021 Ancillary Orders [facility], X-Ray - [facility] [address] [place] [address] Christina Blackburn MD [address] [facility] [place] [address] [email or web address] Abdominal pain, unspecified abdominal location Social History [...] Info) Description 10/04/2024 2:20 PM EDT Appointment [address] [phone] Unknown, Unknown, Maye Abdalla MD [address] [place] [address] [email or web address] documented as of this encounter Results * [...] associated symptomatology in this region. POS - [id number] Narrative 01/13/2021 11:34 AM EST COMPARISON: 07/15/2020 [...] any associatedsymptomatology in this region. POS - [id number] Christina Blackburn MD IMG XR ABDOMEN documented in this encounter Visit Diagnoses Diagnosis Abdominal pain, unspecified abdominal location Abdominal pain, unspecified abdominal location documented in this encounter Additional Health Concerns Infection Onset Date Last Indicated Resolved Time CoV-Exposed Comment:Positive COVID-19 06/28/2021 06/28/2021 06/28/2021 7: 15 PM EDT CoV-Risk 06/28/2021 06/28/2021 06/28/2021 7:15 PM EDT COVID-19 06/28/2021 06/28/2021 07/19/2021 1:21 AM EDT CoV-Risk 12/26/2023 12/26/2023 01/06/2024 1:21 AM EST CoV-Risk 04/03/2024 04/03/2024 04/14/2024 1:22 AM EST documented as of this encounter Care Teams Neon Electrician Relationship Specialty Start Date End Date Mariaelena Howell MD [address] [place] [address] PCP - General Pediatrics 07/16/20 08/23/21 Tari Palacios PA [address] [place] [address] [email or web address] PCP - General 08/24/21 10/04/21 Maye Avila MD [address] [place] [address] [email or web address] PCP - General Internal Medicine 10/05/21 12/29/21 Maye Avila MD [address] [place] [address] PCP - General Internal Medicine 12/30/21 10/17/22 Maye Avila MD [address] [place] [address] PCP - General Internal Medicine 10/18/22 12/26/22 Barbara Wilks MD [address] [place] [address] [email or web address] PCP - General Internal Medicine 12/27/22 01/19/23 Maye Avila MD [address] [place] [email or web address] PCP - General Internal Medicine 01/20/23 02/27/23 Barbara Wilks MD [address] [place] [address] [email or web address] PCP - General Internal Medicine 02/28/23 03/02/23 Maye Avila MD [address] [place] [address] PCP - General Internal Medicine 03/03/23 04/10/23 Barbara Wilks MD [address] [place] [address] [email or web address] PCP - General Internal Medicine 04/11/23 06/12/23 Maye Avila MD [address] [place] [address] PCP - General Internal Medicine 06/13/23 Honey Pollock PA-C [address] [place] [address] Physician Pan Devulcanizer 09/27/22 Lester Salcedo MD [address] [place] [address] Rheumatology 09/27/22 Boo Arroyo, [address] [address] [email or web address] Social Work 04/14/23 05/12/23 Maye Melton MD, MSc [address] [place] [address] [email or web address] iC[employer] Plus Heating Equipment InstallerField Sampling Technician Medicine 06/27/23 07/17/23 Jenifer Rock RN [address] [place] [address] [employer] Plus Heating Equipment Installer 06/27/23 Harsh Ta [address] [employer] [place] [address] [email or web address] [employer] Plus Community Health Worker 06/27/23 07/17/23 Sravanthi Trinidad [address] [place] [address] [email or web address] [employer] Plus Plant Operator Control Room Operator 06/27/23 07/17/23 documented as of this encounter Additional Source Comments The information contained in this document represents components of the legal health record. It is not the complete legal health record.[facility]
--- OUTSIDE RECORDS SUMMARY | 2024-06-03 05:00 | XMS_ITS | Encounter Summary ---
Author Organization [facility] Address [address] [place] [address] Phone Care Team Providers Care Occupational Therapist Rehab Manager Name Role Phone Mariaelena Howell MD Primary Care Provider + [phone] Tari Palacios Primary Care Provider [phone] Maye Avila MD Primary Care Provider +02-14 Maye Avila MD Primary Care Provider +02-14 Honey Pollock PA-C Unavailable + Lester Salcedo MD Unavailable [phone] Maye Avila MD Primary Care Provider +02-14 Barbara Wilks MD Primary Care Provider + Maye Avila MD Primary Care Provider +02-14 Barbara Wilks MD Primary Care Provider + Maye Avila MD Primary Care Provider +02-14 Barbara Wilks MD Primary Care Provider + Boo Arroyo LCSW Unavailable [phone] Maye Avila MD Primary Care Provider +02-14 Maye Melton MD, MSc Unavailable Jenifer Rock RN Unavailable + Harsh De La Rosa Unavailable [email or web address] Sravanthi Harmon Unavailable Encounter Details Date Type Department Care Team (Late st Contact Info) Description 12/24/2020 Transcribe Orders Virtual Department [address] [place] [address] Mariaelena Howell MD [address] [place] [address] Left lower quadrant abdominal pain (Primary Dx); [...] Info) Description 10/04/2024 2:20 PM EDT Appointment [facility] [address] [place] [address] Unknown, Unknown, Maye Abdalla MD [address] [place] [address] [email or web address] documented as of this encounter Results * [...] documented as of this encounter Care Teams Occupational Therapist Rehab Manager Relationship Specialty Start Date End Date Mariaelena Howell MD [address] [place] [address] PCP - General Pediatrics 07/16/20 08/23/21 Tari Palacios PA [address] [place] [address] [email or web address] PCP - General 08/24/21 10/04/21 Maye Avila MD [address] [place] [address] [email or web address] PCP - General Internal Medicine 10/05/21 12/29/21 Maye Avila MD [address] [place] [address] [email or web address] PCP - General Internal Medicine 12/30/21 10/17/22 Maye Avila MD [address] [place] [address] [email or web address] PCP - General Internal Medicine 10/18/22 12/26/22 Barbara Wilks MD [address] [place] [address] [email or web address] PCP - General Internal Medicine 12/27/22 01/19/23 Maye Avila MD [address] [place] [address] [email or web address] PCP - General Internal Medicine 01/20/23 02/27/23 Barbara Wilks MD [address] [place] [address] [email or web address] PCP - General Internal Medicine 02/28/23 03/02/23 Maye Avila MD [address] [place] [address] PCP - General Internal Medicine 03/03/23 04/10/23 Barbara Wilks MD [address] [place] [address] [email or web address] PCP - General Internal Medicine 04/11/23 06/12/23 Maye Avila MD [address] [place] [email or web address] PCP - General Internal Medicine 06/13/23 Honey Pollock PA-C [address] [place] [phone] Physician Security Sales Consultant 09/27/22 Lester Salcedo MD [address] [place] [address] Rheumatology 09/27/22 Boo Arroyo, [address] [place] [address] [email or web address] Social Work 04/14/23 05/12/23 Maye Melton MD, MSc [address] [place] [address] [email or web address] Central Supply ClerkApplication Assistant Medicine 06/27/23 07/17/23 Jenifer Rock RN [address] [place] [address] [employer] Central Supply Clerk 06/27/23 Harsh Ta [address] [place] [address] [employer] Community Health Worker 06/27/23 07/17/23 Sravanthi Trinidad [address] [place] [address] [employer] Emergency Doctor 06/27/23 07/17/23 documented as of this encounter Additional Source Comments The information contained in this document represents components of the legal health record. It is not the complete legal health record.[facility]
--- OUTSIDE RECORDS SUMMARY | 2024-06-03 05:00 | XMS_ITS | Encounter Summary ---
Author Organization [facility] Address [address] [place] [address] Phone Care Team Providers Care Billing Services Manager Name Role Phone Mariaelena Howell MD Primary Care Provider + [phone] Tari Palacios Primary Care Provider [phone] Maye Avila MD Primary Care Provider +02-14 Maye Avila MD Primary Care Provider +02-14 Honey Pollock PA-C Unavailable + Lester Salcedo MD Unavailable [phone] Maye Avila MD Primary Care Provider +02-14 Barbara Wilks MD Primary Care Provider + Maye Avila MD Primary Care Provider +02-14 Barbara Wilks MD Primary Care Provider + Maye Avila MD Primary Care Provider +02-14 Barbara Wilks MD Primary Care Provider + Boo Arroyo LCSW Unavailable +[phone] Maye Avila MD Primary Care Provider +02-14 Maye Melton MD, MSc Unavailable Jenifer Rock RN Unavailable + Harsh De La Rosa Unavailable [email or web address] Sravanthi Harmon Unavailable Reason for Referral * MRI/CAT Scan - Closed Specialty Diagnoses / Procedures Referred By Uzma t Referred To Contact Radiology Diagnoses Other intervertebral disc degeneration, lumbar region Procedures MRI Lumbar Spine Janae Maciel NP [address] [place] [address] Referral ID Status Reason Start Date Expiration Date Visits Re quested Visits Authorized [id number] Closed 02/16/2021 05/17/2021 1 1 Encounter Details Date Type Department Care Team (Latest Contact Info) Description 01/29/2021 Transcribe Orders Virtual Department [address] [place] [phone] Janae Maciel NP [address] [place] [phone] [email or web address] Other idiopathic scoliosis, thoracic region (Primary Dx); Other intervertebral disc degeneration, lumbar region Social History Tobacco Use Types Packs/Day Years [...] Info) Description 10/04/2024 2:20 PM EDT Appointment [address] [address] Unknown, Unknown, Maye Abdalla MD [address] [place] [address] [email or web address] documented as of this encounter Results * MRI LUMBAR SPINE (NEURO) WITHOUT CONTRAST (02/19/2021 3:51 PM EST) Anatomical Region Laterality Modality L-spine Magnetic Resonan ce 02/19/2021 4:34 PM EST Impressions 02/19/2021 4:38 PM EST No findings to account for the patient's symptoms. Mild degenerative changes as above. Narrative 02/19/2021 4:38 PM EST COMPARISON: None. TECHNIQUE: Exam performed on a 1.5 Rashmi high-field MRI scanner. ??Sagittal T1, T2 and STIR, axial T1 and T2 sequences were obtained. MRI LUMBAR SPINE FINDINGS: Moderate L5-S1 disc space narrowing without disc desiccation. No disc herniation, nerve root compression, canal or neural foraminal stenosis. No compression fractures. No malalignment. No bone marrow edema. No destructive or suspicious bone lesions. Conus terminates at L1-2. Paraspinal soft tissues are unremarkable. Additional findings: No additional findings of concern. L1-L2: Unremarkable. L2-L3: Unremarkable. L3-L4: Minimal disc bulging. L4-L5: Minimal disc bulging. L5-S1: Unremarkable. Procedure Note Harsh Casanova MD - 02/19/2021 COMPARISON: None. TECHNIQUE: Exam performed on a 1.5 Rashmi high-field MRI scanner. SagittalT1, T2 and STIR, axial T1 and T2 sequences were obtained. MRI LUMBAR SPINE FINDINGS: Moderate L5-S1 disc space narrowing without disc desiccation. No discherniation, nerve root compression, canal or neural foraminal stenosis. Nocompression fractures. No malalignment. No bone marrow edema. Nodestructive or suspicious bone lesions. Conus terminates at L1-2.Paraspinal soft tissues are unremarkable. Additional findings: No additional findings of concern. L1-L2: Unremarkable. L2-L3: Unremarkable. L3-L4: Minimal disc bulging. L4-L5: Minimal disc bulging. L5-S1: Unremarkable. IMPRESSION: No findings to account for the patient's symptoms. Mild degenerativechanges as above. Janae Maciel NP IMG MR XSPECIALTY * XR THORACIC SPINE 3 VIEW (02/19/2021 3:04 PM EST) Anatomical Region Laterality Modality T-spine Computed Radiogr aphy 02/19/2021 3:55 PM EST Impressions 02/19/2021 3:57 PM EST No explanation for pain. Narrative 02/19/2021 3:57 PM EST HISTORY: ??Tenderness. COMPARISON: Chest x-ray 12/22/2015. VIEWS: ??AP, lateral and shows lateral views. FINDINGS: No compression fractures or subluxations. Mineralization grossly normal. Very mild curvature of the spine. Disc spaces well-maintained. No evidence of arthritic changes. Procedure Note Troy Lam MD - 02/19/2021 HISTORY: Tenderness. COMPARISON: Chest x-ray 12/22/2015. VIEWS: AP, lateral and shows lateral views. FINDINGS: No compression fractures or subluxations. Mineralization grossly normal.Very mild curvature of the spine. Disc spaces well-maintained. No evidenceof arthritic changes. IMPRESSION: No explanation for pain. Janae Maciel NP IMG XR SPINE documented in this encounter Visit Diagnoses Diagnosis Other idiopathic scoliosis, thoracic region- Primary Other intervertebral disc degeneration, lumbar region Other intervertebral disc degeneration, lumbar region Other idiopathic scoliosis, thoracic region documented in this encounter Additional Health Concerns Infection Onset Date Last Indicated Resolved Time CoV-Exposed Comment:Positive COVID-19 06/28/2021 06/28/2021 06/28/2021 7:1 5 PM EDT CoV-Risk 06/28/2021 06/28/2021 06/28/2021 7:15 PM EDT COVID-19 06/28/2021 06/28/2021 07/19/2021 1:21 AM EDT CoV-Risk 12/26/2023 12/26/2023 01/06/2024 1:21 AM EST CoV-Risk 04/03/2024 04/03/2024 04/14/2024 1:22 AM EST documented as of this encounter Care Teams Billing Services Manager Relationship Specialty Start Date End Date Mariaelena Howell MD [address] [place] [phone] PCP - General Pediatrics 07/16/20 08/23/21 Tari Palacios PA [address] [place] [phone] [email or web address] PCP - General 08/24/21 10/04/21 Maye Avila MD [address] [place] [phone] PCP - General Internal Medicine 10/05/21 12/29/21 Maye Avila MD [address] [place] [address] PCP - General Internal Medicine 12/30/21 10/17/22 Maye Avila MD [address] [place] [address] PCP - General Internal Medicine 10/18/22 12/26/22 Barbara Wilks MD [address] [place] [address] [email or web address] PCP - General Internal Medicine 12/27/22 01/19/23 Maye Avila MD [address] [place] [address] [email or web address] PCP - General Internal Medicine 01/20/23 02/27/23 Barbara Wilks MD [address] [place] [address] [email or web address] PCP - General Internal Medicine 02/28/23 03/02/23 Maye Avila MD [address] [place] [email or web address] PCP - General Internal Medicine 03/03/23 04/10/23 Barbara Wilks MD [address] [place] [phone] [email or web address] PCP - General Internal Medicine 04/11/23 06/12/23 Maye Avila MD [address] [place] [address] [email or web address] PCP - General Internal Medicine 06/13/23 Honey Pollock PA-C [address] [place] [address] [email or web address] Physician Personal Insurance Advisor 09/27/22 Lester Salcedo MD [address] [place] [phone] [email or web address] Rheumatology 09/27/22 Boo Arroyo, [address] [address] [email or web address] [facility] Social Work 04/14/23 05/12/23 Maye Melton MD, MSc [address] [place] [phone] [email or web address] Commercial Real Estate BrokerInteractive Project Manager Medicine 06/27/23 07/17/23 Jenifer Rock, [place] [address] [place] [address] [email or web address] [facility] Plus Commercial Real Estate Broker 06/27/23 Harsh Ta [address] [place] [address] [email or web address] [facility] Plus Community Health Worker 06/27/23 07/17/23 Sravanthi Trinidad [address] [place] [address] [email or web address] Plus Head Charger 06/27/23 07/17/23 documented as of this encounter Additional Source Comments The information contained in this document represents components of the legal health record. It is not the complete legal health record.[facility]
== END 2024-06-03 06:32 | disposition left against medical advice (07) ==
PROVIDERS: Emergency Provider Emergency Medicine
DX: M79.641 Pain in right hand (principal); Z53.21 Procedure and treatment not carried out due to patient leaving prior to being seen by health care provider
CPT/HCPCS: 36415; 73100; 73120; 84702; 99281; 99283

== ENCOUNTER → 2024-06-03 04:25 | Outpatient (BNV) | payer MEDICAID, SELFPAY | PROVIDERS: Visit Provider Radiology Diagnostic Radiology | DX: M79.641 Pain in right hand (principal); M25.531 Pain in right wrist | CPT/HCPCS: 73100; 73120 ==

== ENCOUNTER 2024-06-11 11:17 | Inpatient (IN) | payer MEDICAID, SELFPAY ==
[2024-06-11] VITALS (7 sets, daily range): BP systolic 90–122; BP diastolic 46–84; PULSE 80–112; RESP 12–20; TEMP 36.6–37.2; O2SAT 90–100; BMI 15.4
--- NOTE | ~2024-06-11 | CT_ITS ---
EXAMINATION: CT ABDOMEN AND PELVIS WITHOUT CONTRAST CLINICAL INFORMATION: Left flank pain. COMPARISON: Correlated to Limited ultrasound dated April 04, 2024. TECHNIQUE: Multidetector volumetric imaging was performed from the superior aspect of the liver through the pubic symphysis. Sagittal and coronal reformatted images were obtained on the technologist's workstation. This CT examination was performed using dose optimization techniques as appropriate, variously including the following: *Automated exposure control *Adjustment of mA and/or kV according to patient size (this includes techniques or standardized protocols for targeted exams where dose is matched to indication/reason for exam; i.e. extremities or head) *Use of iterative reconstruction technique DLP: 233 mGy centimeter. FINDINGS: Inadequate evaluation of the intra-abdominal organs and vascular structures due to lack of IV contrast. LUNG BASES: No acute airspace disease. LIVER, GALLBLADDER, AND BILIARY TREE: Liver measures 15 cm. Focal hypodensity adjacent to the falciform ligament, likely fatty infiltration. Probable biliary sludge and/or tiny cholelithiasis. No pericholecystic fluid collection or gallbladder wall thickening. No intrahepatic or extrahepatic biliary ductal dilatation. PANCREAS: No peripancreatic fluid collection. No main pancreatic ductal dilatation. SPLEEN: 7 cm. ADRENAL GLANDS: No nodular lesion. KIDNEYS AND URETERS: No hydronephrosis. No nephrolithiasis. BLADDER: Fluid-filled. GASTROINTESTINAL TRACT: No intestinal obstruction pattern. No pneumatosis intestinalis. I cannot clearly identify the appendix. No mesocecum edema pattern or fluid collections. No pneumoperitoneum. No ascites. ABDOMINAL WALL: No umbilical hernia. LYMPH NODES: Nonenlarged and the mesenteric or retroperitoneal. VASCULAR: No aneurysm, abdominal aorta. PELVIC VISCERA: Inadequate evaluation demonstrated no gross masses. OSSEOUS STRUCTURES: Levoconvex curvature of the lumbar spine. 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 Spina bifida occulta S1, congenital. CT/CT abdomen pelvis wo IV con IMPRESSION: No hydronephrosis or nephrolithiasis. Levoconvex curvature of the lumbar spine. 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 Fleischner guidelines were followed. Electronically signed by: Ian Nicole MD 06/11/2024 01:55 PM EDT
--- NOTE | 2024-06-11 11:39 | ED_ITS ---
HPI - Nausea/Vomiting/Diarrhea General Chief complaint: Nausea/Vomiting/Diarrhea Stated complaint: ABD PAIN,VOMITING X1W PER EMS Time Seen by Provider: 06/11/24 11:23 History of Present Illness HPI Narrative: Patient is a 23-year-old female with a history of having nausea vomiting diarrhea for about a week. There is no blood in the stool. Vomiting mostly food. Also complaining of pain to the left flank area. Patient denies any abdominal surgery in the past. Positive history of kidney stone. There is no coughing or congestion or upper respiratory symptoms. Was noted to have a slight tachycardia. Patient's denies any chest pain denies any coughing congestion. Diarrhea is brown in color. No travel history. No recent antibiotics. Patient from home. Recently had her menstruation did not feel she is . Related Data Previous Rx's ?Medication ?Instructions ?Recorded ondansetron HCl 4 mg tablet 4 mg PO Q8H PRN nausea and 04/04/24 vomiting #10 tabs Allergies Allergy/AdvReac Type Severity Reaction Status Date / Time No Known Allergies Allergy Verified 06/11/24 11:32 Review of Systems 2 Review of Systems: Positive left flank pain Yes all other systems are reviewed and are negative PMFSH Past Medical History Attestation statement: The following information was validated with the patient. Social History Social History Unable to assess alcohol history related to: Unknown Alcohol intake: unknown Smoked in Last 30 Days: No Use of substances other than those prescribed or required for medical reasons: No Advance Directives: No Advance Directives Information Provided: No Do you have a plan to hurt others: No Plan Patient : No Physical Exam 2 Vital Signs: Vital Signs: Last Vital Signs Temp 97.8 F 06/11/24 14:23 Pulse 86 06/11/24 14:23 Resp 14 06/11/24 14:23 BP 106/64 06/11/24 14:23 Pulse Ox 100 06/11/24 14:23 O2 Del Method Room Air 06/11/24 14:23 BMI result Body Mass Index 15.4 Appearance: Alert. Oriented X3. No acute distress. Eyes: Pupils equal, round and reactive to light. ENT: Pharynx normal. Neck: Normal inspection. Neck supple. No lymph nodes noted. No crepitus CVS: Normal heart rate and rhythm. Pulses normal. Normal S1 and S2 Respiratory: No respiratory distress. Breath sounds normal. No Wheezing. No rales Abdomen: Soft and nontender. No rigidity. No distention. good BS x4 Skin: Skin warm and dry. Normal skin color. Normal skin turgor. Extremities: No lower extremity edema. Neurovascular intact to all extremities. No Lacerations. No Rash Neuro: Oriented X 3. No motor deficit. No sensory deficit. Moving all extermities. No slurred speech Medications Administered Discontinued Medications Generic Name Dose Route Start Last Admin Trade Name Freq PRN Reason Stop Dose Admin Ceftriaxone Sodium 1 gm 06/11/24 16:09 06/11/24 16:47 Ceftriaxone Sodium 1 Gm Vial IVPUSH 06/11/24 16:10 1 gm ONCE ONE Administration Diazepam 5 mg 06/11/24 15:19 06/11/24 15:28 Diazepam 10 Mg/2 Ml Cartridge IVPUSH 06/11/24 15:20 5 mg STAT STA Administration Sodium Chloride 1,000 mls @ 999 mls/hr 06/11/24 11:45 06/11/24 13:49 Ns IV 06/11/24 12:45 Infused .Q1H1M HERNAN Infusion Potassium Chloride 10 meq in 100 mls @ 100 mls/hr 06/11/24 12:45 06/11/24 17:32 Potassium Chloride/H20 IV 06/11/24 16:44 100 mls/hr Q1H HERNAN Administration Ketorolac Tromethamine 30 mg 06/11/24 11:37 06/11/24 12:05 Ketorolac Tromethamine 30 Mg/Ml Vial IVPUSH 06/11/24 11:38 30 mg ONCE ONE Administration Ondansetron HCl 4 mg 06/11/24 11:38 06/11/24 12:06 Ondansetron Hcl 4 Mg/2 Ml Vial IVPUSH 06/11/24 11:39 4 mg ONCE ONE Administration Potassium Chloride 40 meq 06/11/24 12:41 06/11/24 12:48 Potassium Chloride Packet 20 Meq Packet PO 06/11/24 12:42 40 meq ONCE ONE Administration Medical Decision Making Medical Decision Making [facility] Narrative: Patient 23 years old presents today with having generalized malaise having abdominal cramps diffusely. Patient's urine was infected. CT scan of the abdomen pelvis was negative for obstruction abscess perforation. Antibiotic was started. Patient had an extremely low potassium of 2.5 on recheck it was 2.3. Was repleted with 80 mg p.o. of potassium. Along with multiple runs of potassium. Patient's magnesium was checked and was at 2.6 no signs of hypomagnesemia. Patient given IV fluid monitor in the emergency department. White count is normal. Lactate is 1.3 there is no evidence for severe sepsis. She was given Rocephin. No significant culture here in [place]. test was negative. There is no evidence for related issue. Will admit patient for further evaluation. My evaluation of patient's EKG showed a sinus rhythm heart rate is 120 NV QRS QTC normal Differential Diagnosis Differential Diagnoses: The differential diagnosis associated with the presentation includes Dehydration, hyponatremia, anxiety, obstruction, UTI Admission/Observation Consideration of admission/observation: Escalation of care including admission/observation considered Consult Healthcare Provider Management of the patient was discussed with: Hospitalist Lab Data MDM Lab Attestation statement: I reviewed the patient's lab results. 06/11/24 12:04 06/11/24 16:35 Labs: Lab Results 06/11/24 06/11/24 06/11/24 Range/Units 12:04 14:02 15:02 WBC 10.4 (4.8-10.8) X10*3/uL RBC 5.48 (4.20-5.50) X10*6/uL Hgb 16.3 H (12.0-16.0) g/dl Hct 44.5 (37.0-47.0) % MCV 81.2 (80.0-98.0) fL MCH 29.7 (27.0-33.0) pg MCHC 36.6 H (31.0-35.0) g/dl RDW 13.0 (11.0-16.0) % Plt Count 391 (160-400) X10*3/uL MPV 9.1 L (9.4-12.3) fL Immature Gran % (Auto) 0.5 H (0.0-0.4) % Neut % (Auto) 69.6 (45-73) % Lymph % (Auto) 17.1 L (20-40) % Hubbard % (Auto) 11.4 H (2-11) % Eos % (Auto) 1.1 (0-4) % Baso % (Auto) 0.3 (0-2) % Lymph # (Auto) 1.8 (1.2-4.9) X10*3/uL Hubbard # (Auto) 1.2 (0.1-1.2) X10*3/uL Eos # (Auto) 0.1 (0.0-0.4) X10*3/uL Baso # (Auto) 0.0 (0.0-0.2) X10*3/uL Abs Immat Gran (auto) 0.05 H (0.00-0.03) X10*3/uL Absolute Neuts (auto) 7.3 (2.0-8.3) x10*3/uL Absolute Nucleated RBC 0.000 (0.0-0.012) X10*3/uL Nucleated RBC % (auto) 0.0 (0.0-0.2) /100WBC VBG pH 7.62 H* (7.32-7.43) VBG pCO2 30 mmHg VBG pO2 49 mmHg VBG HCO3 31 H (22-26) mmol/L VBG O2 Saturation 82.0 % VBG Base Excess 10.4 mmol/L Sodium 128 L 129 L (135-145) mmol/L Potassium 2.5 L* 2.3 L* (3.3-5.1) mmol/L Chloride 77 L 85 L (96-108) mmol/L Carbon Dioxide 32 H 28 (22-29) mmol/L Anion Gap 22 H 18 (12-20) BUN 18 H 17 H (9-16) mg/dL Creatinine 0.78 0.72 (0.5-1.4) mg/dL Estim Creat Clear Calc 72.5 78.5 Estimated GFR > 60 > 60 Random Glucose 114 96 (60-115) mg/dL Lactic Acid (0.5-2.0) mmol/L Calcium 10.3 H 8.9 D (8.4-10.2) mg/dL Magnesium 2.9 H (1.6-2.6) mg/dL Total Bilirubin 1.8 H 1.7 H (0.0-1.0) mg/dL Direct Bilirubin 0.5 (0.0-0.5) mg/dL AST 30 21 (5-31) U/L ALT 28 21 (0-31) U/L Alkaline Phosphatase 74 65 (39-117) U/L Total Protein 9.3 H 8.0 (6.5-8.0) g/dL Albumin 5.0 4.3 (3.5-5.0) g/dL Lipase 11 (8-78) U/L Beta-Hydroxybutyrate 1.00 H (0.02-0.27) mmol/L Beta HCG, Quant < 2 mIU/mL Urine Color Urine Appearance Urine pH (5.0-9.0) Ur Specific [place] (1.005-1.025) Urine Protein (Neg-Trace) mg/dL Urine Glucose (UA) (Negative) mg/dL Urine Ketones (Negative) mg/dL Urine Blood (Negative) Urine Nitrite (Negative) Ur Leukocyte Esterase (Negative) Urine RBC (0-2) /HPF Urine WBC (0-5) /HPF Ur Squamous Epith Cells (0-2) /HPF Urine Bacteria (None Seen) Hyaline Casts (0-2) /LPF Urine Test (NEGATIVE) 06/11/24 06/11/24 06/11/24 Range/Units 15:28 16:35 16:39 WBC (4.8-10.8) X10*3/uL RBC (4.20-5.50) X10*6/uL Hgb (12.0-16.0) g/dl Hct (37.0-47.0) % MCV (80.0-98.0) fL MCH (27.0-33.0) pg MCHC (31.0-35.0) g/dl RDW (11.0-16.0) % Plt Count (160-400) X10*3/uL MPV (9.4-12.3) fL Immature Gran % (Auto) (0.0-0.4) % Neut % (Auto) (45-73) % Lymph % (Auto) (20-40) % Hubbard % (Auto) (2-11) % Eos % (Auto) (0-4) % Baso % (Auto) (0-2) % Lymph # (Auto) (1.2-4.9) X10*3/uL Hubbard # (Auto) (0.1-1.2) X10*3/uL Eos # (Auto) (0.0-0.4) X10*3/uL Baso # (Auto) (0.0-0.2) X10*3/uL Abs Immat Gran (auto) (0.00-0.03) X10*3/uL Absolute Neuts (auto) (2.0-8.3) x10*3/uL Absolute Nucleated RBC (0.0-0.012) X10*3/uL Nucleated RBC % (auto) (0.0-0.2) /100WBC VBG pH 7.63 H* (7.32-7.43) VBG pCO2 26 mmHg VBG pO2 83 mmHg VBG HCO3 28 H (22-26) mmol/L VBG O2 Saturation 99.0 % VBG Base Excess 7.9 mmol/L Sodium 132 L (135-145) mmol/L Potassium 2.5 L* (3.3-5.1) mmol/L Chloride 97 (96-108) mmol/L Carbon Dioxide 24 (22-29) mmol/L Anion Gap 14 (12-20) BUN 12 (9-16) mg/dL Creatinine 0.64 (0.5-1.4) mg/dL Estim Creat Clear Calc 88.3 Estimated GFR > 60 Random Glucose 88 (60-115) mg/dL Lactic Acid 1.3 (0.5-2.0) mmol/L Calcium 7.9 L D (8.4-10.2) mg/dL Magnesium (1.6-2.6) mg/dL Total Bilirubin (0.0-1.0) mg/dL Direct Bilirubin (0.0-0.5) mg/dL AST (5-31) U/L ALT (0-31) U/L Alkaline Phosphatase (39-117) U/L Total Protein (6.5-8.0) g/dL Albumin (3.5-5.0) g/dL Lipase (8-78) U/L Beta-Hydroxybutyrate (0.02-0.27) mmol/L Beta HCG, Quant mIU/mL Urine Color Yellow Urine Appearance Clear Urine pH >= 9.0 (5.0-9.0) Ur Specific [place] <= 1.005 (1.005-1.025) Urine Protein Negative (Neg-Trace) mg/dL Urine Glucose (UA) Negative (Negative) mg/dL Urine Ketones 15 (Negative) mg/dL Urine Blood Negative (Negative) Urine Nitrite Negative (Negative) Ur Leukocyte Esterase Large (3+) H (Negative) Urine RBC 0-2 (0-2) /HPF Urine WBC 21-50 H (0-5) /HPF Ur Squamous Epith Cells 3-5 (0-2) /HPF Urine Bacteria Trace (None Seen) Hyaline Casts 0-2 (0-2) /LPF Urine Test NEGATIVE (NEGATIVE) Independent Interpretation I performed an independent interpretation of an: EKG (Sinus tachycardia heart rate is 120) and CT Scan (No obstruction abscess perforation) Social Determinants Patient?s care significantly limited by Social Determinants of Health including: Problems related to primary support group Discharge Plan Discharge Clinical Impression: Acute hypokalemia Patient Disposition: Home, Self-Care
--- NOTE | 2024-06-11 11:39 | ECG_ITS ---
Test Reason : tachycardic Blood Pressure : */* mmHG Vent. Rate : 117 BPM Atrial Rate : 117 BPM P-R Int : 116 ms QRS Dur : 84 ms QT Int : 382 ms P-R-T Axes : 84 106 71 degrees QTcB Int : 532 ms Sinus tachycardia Right atrial enlargement Possible Anterolateral infarct , age undetermined Prolonged QT Abnormal ECG When compared with ECG of 04-Apr-2024 18:16, Borderline criteria for Anterolateral infarct are now Present ST depression has replaced ST elevation in Inferior leads Nonspecific T wave abnormality no longer evident in Anterior leads Referred By: Tete Carrillo Electronically Signed By: ALANIS PAREKH
[2024-06-11] MEDS: Ketorolac Tromethamine 30 MG/ML VIAL IVPUSH (12:05)
[2024-06-11] MEDS: 0.9 % Sodium Chloride 1,000 ML 999 ML IV (12:06)
[2024-06-11] MEDS: ondansetron HCL 4 MG/2 ML VIAL IVPUSH (12:06)
[2024-06-11 12:08] LABS: MANUAL DIFF FLAG NO
[2024-06-11 12:09] LABS: Basophils Percent Auto 0.3 % (0-2); Eosinophils Absolute Auto 0.1 X10*3/uL (0.0-0.4); Eosinophils Percent Auto 1.1 % (0-4); Hematocrit 44.5 % (37.0-47.0); Hemoglobin 16.3 g/dl (12.0-16.0); Imm Gran Abs Auto 0.05 X10*3/uL (0.00-0.03); Imm Gran Pct Auto 0.5 % (0.0-0.4); Lymphocytes Absolute Auto 1.8 X10*3/uL (1.2-4.9); Lymphocytes Percent Auto 17.1 % (20-40); Mean Corpuscular HGB Conc 36.6 g/dl (31.0-35.0); Mean Corpuscular Hemoglobin 29.7 pg (27.0-33.0); Mean Corpuscular Volume 81.2 fL (80.0-98.0); Mean Platelet Volume 9.1 fL (9.4-12.3); Monocytes Absolute Auto 1.2 X10*3/uL (0.1-1.2); Monocytes Percent Auto 11.4 % (2-11); Neutrophils Absolute Auto 7.3 x10*3/uL (2.0-8.3); Neutrophils Percent Auto 69.6 % (45-73); Platelet Count 391 X10*3/uL (160-400); Red Blood Count 5.48 X10*6/uL (4.20-5.50); White Blood Count 10.4 X10*3/uL (4.8-10.8)
--- NOTE | 2024-06-11 12:27 | PC.NURSE ---
Patient presents to ED c/o N/V/D for the past week. Patient reports no blood. Denies contact with ill people. Denies fever/chills. Patient c/o abdomen pain rated 10/10, abdomen appears soft and non distended, + bowel sounds. Patient c/o SOB starting 3 days ago, patient currently on RA 100% 12RR. 20G in Right forearm, currently running 1L NaCl. Labs collected. Patient attempted to use restroom, unable to void at this time. Patient ambulates independently w/o assistive device. EKG performed. Tordol and zofran administered, effectiveness pending. Patricia-bag given. Call kincaid in reach. Plan of care on going
[2024-06-11 12:41] LABS: Alanine Aminotransferase 28 U/L (0-31); Alkaline Phosphatase 74 U/L (39-117); Anion Gap 22 (12-20); Aspartate Amino Transferase 30 U/L (5-31); Bilirubin Direct 0.5 mg/dL (0.0-0.5); Bilirubin Total 1.8 mg/dL (0.0-1.0); Blood Urea Nitrogen 18 mg/dL (9-16); Calcium 10.3 mg/dL (8.4-10.2); Carbon Dioxide 32 mmol/L (22-29); Chloride 77 mmol/L (96-108); Creatinine Clr Calc Pharmacy 72.5; Estimated Glomerular Filt Rate > 60; Glucose Random 114 mg/dL (60-115); Lipase 11 U/L (8-78); Potassium 2.5 mmol/L (3.3-5.1); Sodium 128 mmol/L (135-145); Total Protein 9.3 g/dL (6.5-8.0)
[2024-06-11] MEDS: Potassium Chloride Packet 20 MEQ PACKET 40 MEQ PO ×3 (12:48→22:51)
[2024-06-11] MEDS: Potassium Chloride/H20 10 MEQ/100 ML PIGGYBACK 100 MEQ IV ×5 (12:49→22:50)
--- NOTE | 2024-06-11 12:56 | PC.NURSE ---
Patient noted to be hypokalemic, provider notified. Patient received PO K+ and currently in infusing IV K+. Tordol effective, pain rated 6/10.
[2024-06-11 12:59] LABS: HCG Quantitative < 2 mIU/mL; Magnesium 2.9 mg/dL (1.6-2.6)
--- NOTE | 2024-06-11 13:46 | PC.NURSE ---
Patient c/o pain at insertion site r/t IV k+. Provider notified, IV K+ slowed down and currently running with NaCl.
--- NOTE | 2024-06-11 14:06 | PC.NURSE ---
Second bag of IV K+ started, patient reports less pain at site.
--- OUTSIDE RECORDS SUMMARY | 2024-06-11 14:10 | XMS_ITS | Encounter Summary ---
Author Organization [facility] Address [address] [place], [place] [id number] Phone Care Team Providers Care Tire Repairman Name Role Phone Honey Pollock PA-C Unavailable [phone] Lester Salcedo MD Unavailable [phone] Barbara Wilks MD Primary Care Provider Maye Avila MD Primary Care Provider [phone] Barbara Wilks MD Primary Care Provider Boo Arroyo LCSW Unavailable [phone] Maye Avila MD Primary Care Provider [phone] Maye Melton MD, MSc Unavailable Jenifer Rock RN Unavailable + Harsh De La Rosa Unavailable [email or web address] Unavailable Encounter Details Date Type Department Care Team (Late st Contact Info) Description 03/02/2023 Procedure Pass [facility] MRI [address] [facility], 4th [place] [address] Social History Tobacco Use Types Packs/Day Years [...] high school, GED, job training, learning the Tristanian language, technical skills, or developing parenting skills)? [...] 2:20 PM EDT Appointment [facility] [address] [place] [address] Unknown, Unknown, Maye Abdalla MD [address] [place] [address] [email or web address] documented as of this encounter Visit Diagnoses [...] documented as of this encounter Care Teams Tire Repairman Relationship Specialty Start Date End Date Barbara Wilks MD [address] [place] [address] [email or web address] PCP - General Internal Medicine 02/28/23 03/02/23 Maye Avila MD [address] [place] [address] PCP - General Internal Medicine 03/03/23 04/10/23 Barbara Wilks MD [address] [place] [address] [email or web address] PCP - General Internal Medicine 04/11/23 06/12/23 Maye Avila MD [address] [place] [address] PCP - General Internal Medicine 06/13/23 Honey Pollock PA-C Physician Spar Machine Operator 09/27/22 Lester Salcedo MD Rheumatology 09/27/22 Boo Arroyo, NATE [address] [place] [address] [email or web address] 04/14/23 05/12/23 Maye Melton MD, MSc [address] [place] [address] i[employer] Plus Algebra TeacherAircraft Magneto Mechanic Medicine 06/27/23 07/17/23 Jenifer Rock, WALESKA [address] [place] [address] [employer] Plus Algebra Teacher 06/27/23 Harsh Ta [address] [place] [address] [employer] Community Health Worker 06/27/23 07/17/23 Sravanthi Trinidad [address] [place] [address] [email or web address] [employer] Plus Director Professional Services 06/27/23 07/17/23 documented as of this encounter Additional Source Comments The information contained in this document represents components of the legal health record. It is not the complete legal health record.[facility]
--- OUTSIDE RECORDS SUMMARY | 2024-06-11 14:10 | XMS_ITS | Encounter Summary ---
Author Organization [facility] Address [address] [place] [address] Phone Care Team Providers Care Glass Furnace Tender Name Role Phone Maye Avila MD Primary Care Provider [phone] Honey Pollock PA-C Unavailable [phone] Lester Salcedo MD Unavailable [phone] Maye Avila MD Primary Care Provider [phone] Barbara Wilks MD Primary Care Provider Maye Avila MD Primary Care Provider [phone] Barbara Wilks MD Primary Care Provider Maye Avila MD Primary Care Provider [phone] Barbara Wilks MD Primary Care Provider Boo Arroyo LCSW Unavailable [phone] Maye Avila MD Primary Care Provider [phone] Maye Melton MD, MSc Unavailable + Jenifer Rock RN Unavailable + Harsh De La Rosa Unavailable [email or web address] Sravanthi Unavailable + Encounter Details Date Type Department Care Team (Late st Contact Info) Description 08/06/2022 Procedure Pass [facility] Physicians - Endoscopy - [place] [address] [place] [address] Social History Tobacco Use Types Packs/Day Years [...] high school, GED, job training, learning the Faroese language, technical skills, or developing parenting skills)? [...] 10/04/2024 2:20 PM EDT Appointment [facility] [address] [place] [address] Unknown, Unknown, Maye Abdalla MD [address] [place] [address] [email or web address] documented as of this encounter Visit Diagnoses [...] documented as of this encounter Care Teams Glass Furnace Tender Relationship Specialty Start Date End Date Maye Avila MD [address] [place] [address] [email or web address] PCP - General Internal Medicine 12/30/21 10/17/22 Maye Avila MD [address] [place] [address] [email or web address] PCP - General Internal Medicine 10/18/22 12/26/22 Barbara Wilks MD [address] [place] [address] [email or web address] PCP - General Internal Medicine 12/27/22 01/19/23 Maye Avila MD [address] [place] [address] [email or web address] PCP - General Internal Medicine 01/20/23 02/27/23 Barbara Wilks MD [address] [place] [address] [email or web address] PCP - General Internal Medicine 02/28/23 03/02/23 Maye Avila MD [address] [place] [address] [email or web address] PCP - General Internal Medicine 03/03/23 04/10/23 Barbara Wilks MD [address] [place] [address] [email or web address] PCP - General Internal Medicine 04/11/23 06/12/23 Maye Avila MD [address] [place] [address] [email or web address] PCP - General Internal Medicine 06/13/23 Honey Pollock PA-C [address] [place] [address] [email or web address] Physician Telephone Assembler 09/27/22 Lester Salcedo MD [address] [place] [address] [email or web address] Rheumatology 09/27/22 Boo Arroyo LCSW [address] [place] [address] [email or web address] [employer] Social Work 04/14/23 05/12/23 Maye Melton MD, MSc [address] [place] [address] iCMP Plus Field MachinistTechnical Training Coordinator Medicine 06/27/23 07/17/23 Jenifer Rock RN [address] [place] [address] [employer] Plus Field Machinist 06/27/23 Harsh Ta [address] [place] [address] [employer] Plus Community Health Worker 06/27/23 07/17/23 Sravanthi Trinidad [address] [place], [place] [phone] [employer] Plus Pipe Connector 06/27/23 07/17/23 documented as of this encounter Additional Source Comments The information contained in this document represents components of the legal health record. It is not the complete legal health record.[facility]
--- OUTSIDE RECORDS SUMMARY | 2024-06-11 14:10 | XMS_ITS | Clinical Summary ---
Author Organization [facility] Address [address] [place], [place] [id number] Phone Care Team Providers Care Sales Clerk Supervisor Name Role Phone Honey Pollock PA-C Unavailable [phone] Lester Salcedo MD Unavailable [phone] Maye Avila MD Primary Care Provider [phone] Allergies No known active allergies Medications Medication [...] sent. Provided with home care instructions for Crane. and Lyme including continued rest and no [...] sent. Provided with home care instructions for Crane. and Lyme including continued rest and no [...] Emphasize healthy food choices, portion control. Consider jig boring machine set up operator referral for ongoing support. Longitudinally monitor. Pre-menstrual syndrome 08/19/2023 Assessment & Plan (08/19/2023 9:05 AM EDT): Discussed option of long-acting contraceptives as potentially beneficial for her symptoms. Provided with patient education to review. Referred to RENT AND HOUSING INVESTIGATOR for further evaluation and management. Patient verbalized [...] Age-specific USPSTF screening tests reviewed. Pap per sealing machine operator, will request prior records. Assessment & Plan [...] as above. Medication changes as above. Suggest hjjul-rvk-vuknk zofran for the near term in order to maximize PO intake. Nutrition follow-up as above. Short term follow-up to reassess. Assessment & Plan (06/09/2023 12:02 PM EDT): Continue Ondansetron prn Assessment & Plan (03/31/2023 10:38 AM EST): Suspect multifactorial. She wonders if her seasonal allergies are playing a role, OK for marketing summer intern julieth. Assessment & Plan (02/23/2023 5:18 PM [...] no relief with zofran Has appt with plant nursery worker next week Plan for GI referral Patient [...] contracted for safety. Contact info for local [facility] and therapy provided. Readdress longitudinally. Assessment & [...] Patient has recurrent eczema. Previously followed by car spotter has not been seen in several years. [...] would like to establish care with Adult Heavy Equipment Field Mechanic. Referred to [facility] Rheumatology for ongoing follow-up. Resolved Problems Problem Noted Date Diagnosed Date Resolved Date Menstrual cramp 08/19/2023 10/03/2023 Assessment & Plan (08/19/2023 9:05 AM EDT): Discussed option of long-acting contraceptives as potentially beneficial for her symptoms. Provided with patient education to review. Referred to RENT AND HOUSING INVESTIGATOR for further evaluation and management. Patient verbalized [...] PM EST): Ulises Meneses. [facility] sites with negative rheumatoid factor 12/30/2021 03/30/2022 [...] 11:13 PM EST Emergency [facility] [address] [place] [address] Rafael Flores MD Discharge Disposition: Home or Self Care 03/22/2024 Orders Only [facility] Physicians - Medical Records - [place] [address] [place] [address] ProviderAdeline MD 03/21/2024 Refill [facility] [address] [place] [address] Gay Torrez MD Medication Refill from Last 3 Months Immunizations Name Administration Dates Next Due DTaP 02/03/2006, 4,06/14/2002,04/19,03/09/2002 [id number] FORMULATION 01/07/2009 HPV,quadrivalent 11/14/2013 HPV9 12/19/2014 Hepatitis [...] Info) Description 10/04/2024 2:20 PM EDT Appointment [facility] [address] [place] [address] Unknown, Unknown, Maye Abdalla MD [address] [place] [address] [email or web address] Due Date Last Done Comments [...] BPM [facility] Atrial Rate 126 BPM [facility] MS Interval 128 ms [facility] QRS Duration 88 ms [facility] QT Interval 326 ms [facility] QTC Interval 472 ms [facility] P [place] 86 degrees [facility] R Wave [place] 108 degrees [facility] T Wave [place] 43 degrees [facility] 04/03/2024 8:46 PM EST 04/04/2024 12:23 PM EST Narrative [facility] - 04/04/2024 12:23 PM EST Sinus tachycardia Right atrial enlargement Rightward axis Pulmonary disease pattern Nonspecific ST abnormality Abnormal ECG No previous ECGs available Confirmed by Oswaldo Bolden ([id number]) on 04/04/2024 12:23:26 PM Laci Holt MD ECG ORDERABLES Performing Organization Address City/[facility]/ZIP Co de Phone Number [facility] * (ABNORMAL) Urinalysis w/reflex Urine Culture (04/03/2024 7:54 PM EST) COLOR Yellow Yellow [facility] CLARITY CLOUDY [facility] GLUCOSE Negative Negative [facility] BILI 1+(A) Negative [facility] KETONES Trace(A) Negative [facility] SPECIFIC GRAVITY 1.020 1.005 - 1.030 [facility] BLOOD 3+(A) Negative [facility] PH 6.5 5.0 - 8.0 [facility] Protein-UA 1+(A) Negative [facility] NITRITE Negative Negative [facility] Leukocyte esterase, ur Negative Negative [facility] Urine (Urine) 04/03/2024 7:5 4 PM EST 04/03/2024 8:01 PM EST Rafael Flores MD URINE ORDERABLES [facility] [address] [place] [address] * Urine Culture (04/03/2024 7:54 PM EST) Special Requests None Reflexed from [id number] 04/03/2024 8:28 PM EST [facility] Urine Culture >100,000 colony forming units per mL PROBABLE CORYNEBACTERIUM SPECIES OF TWO MORPHOLOGIES 04/05/2024 11:25 AM EST [facility] Urine 04/03/2024 7:54 PM EST 04/03/2024 8:01 PM EST Rafael Flores MD MICROBIOLOGY - G ENERAL ORDERABLES Performing Organization Address [facility] Co de Phone Number [address] [address] * (ABNORMAL) Urine sediment (04/03/2024 7:54 PM EST) WBC 11-20(A) NONE SEEN /hpf [facility] RBC 3-5(A) NONE SEEN /hpf [facility] URINE EPITHELIAL 5-10(A) NONE SEEN [facility] MUCUS 3+(A) NONE SEEN /hpf [facility] BACTERIA 2+(A) NONE SEEN /hpf [facility] 04/03/2024 7:54 PM EST 04/03/2024 8:01 PM EST Rafael Flores MD URINE ORDERABLES Performing Organization Address [facility] Co de Phone Number [address] [address] * HCG, serum qualitative (04/03/2024 7:41 PM EST) HCG, QUALITATIVE Negative Negative IU/L [facility] Blood 04/03/2024 7:41 PM EST 04/03/2024 7:44 PM EST Rafael Flores MD LAB BLOOD ORDERA BLES Performing Organization Address [facility] Co de Phone Number [address] [address] * (ABNORMAL) LFTs (hepatic panel) (04/03/2024 7:41 PM EST) ALKALINE PHOSPHATASE 76 39 - 117 U/L [facility] TOTAL BILIRUBIN 1.3(H) 0.0 - 1.2 mg/dL [facility] DIRECT BILIRUBIN 0.4(H) 0.0 - 0.2 mg/dL [facility] Bilirubin (Indirect) 0.9 0 - 1.5 mg/dL [facility] AST 16 0 - 37 U/L [facility] ALT 6 0 - 40 U/L [facility] TOTAL PROTEIN 9.4(H) 6.5 - 8.0 g/dL [facility] ALBUMIN 4.7 3.9 - 4.8 g/dL [facility] GLOBULIN 4.7 1 - 4.8 g/dL [facility] A/G Ratio 1.00 1.00 - 4.80 RATIO [facility] Blood 04/03/2024 7:41 PM EST 04/03/2024 7:44 PM EST Rafael Flores MD LAB BLOOD ORDERA BLES Performing Organization Address City/State/[facility] Co de Phone Number [facility] [address] [place] [address] * (ABNORMAL) CBC and differential (04/03/2024 7:41 PM EST) WBC 9.06 4.00 - 11.00 K/uL [facility] RBC 5.46(H) 4.00 - 5.20 M/uL [facility] HGB 15.8 12.0 - 16.0 g/dL [facility] HCT 44.5 36.0 - 46.0 % [facility] PLT 469(H) 150 - 450 K/uL [facility] MCV 81.5 80.0 - 100.0 fL [facility] MCH 28.9 27.0 - 31.0 pg [facility] MCHC 35.5 32.0 - 36.0 g/dL [facility] RDW 15.1(H) 11.5 - 14.5 % [facility] MPV 8.4 8.4 - 12.0 fL [facility] NRBC 0.00 0.00 /100 WBCs [facility] ABSOLUTE NRBC 0.00 0.00 K/uL [facility] DIFF METHOD Auto [facility] NEUTS 53.1 48.0 - 76.0 % [facility] LYMPHS 32.2 18.0 - 41.0 % [facility] MONOS 13.1(H) 4.0 - 11.0 % [facility] EOS 1.1 0.0 - 5.0 % [facility] BASOS 0.3 0.0 - 1.5 % [facility] Granulocytes, immature (%) 0.2 0.0 - 0.9 % [facility] ABSOLUTE NEUTS 4.80 1.92 - 7.60 K/uL [facility] ABSOLUTE LYMPHS 2.92 0.72 - 4.10 K/uL [facility] ABSOLUTE MONOS 1.19(H) 0.16 - 1.10 K/uL [facility] ABSOLUTE EOS 0.10 0.00 - 0.50 K/uL [facility] ABSOLUTE BASOS 0.03 0.00 - 0.15 K/uL [facility] Granulocytes, immature 0.02 0.00 - 0.09 K/uL [facility] Blood 04/03/2024 7:41 PM EST 04/03/2024 7:44 PM EST Rafael Flores MD LAB BLOOD ORDERA BLES [address] [address] * Magnesium (04/03/2024 7:41 PM EST) MAGNESIUM 2.3 1.6 - 2.6 mg/dL [facility] 04/03/2024 7:41 PM EST 04/03/2024 7:44 PM EST Rafael Flores MD LAB BLOOD ORDERA BLES Performing Organization Address City/[facility]/ZIP Co de Phone Number [address] [address] * (ABNORMAL) Lipase (04/03/2024 7:41 PM EST) LIPASE 14(L) 16 - 63 U/L [facility] Blood 04/03/2024 7:41 PM EST 04/03/2024 7:44 PM EST Rafael Flores MD LAB BLOOD ORDERA BLES Performing Organization Address [facility]/ZIP Co de Phone Number [address] [address] * (ABNORMAL) Basic metabolic panel (04/03/2024 7:41 PM EST) SODIUM 128(L) 133 - 146 mmol/L [facility] CHLORIDE 81(L) 96 - 108 mmol/L [facility] POTASSIUM 2.8(L) 3.3 - 5.1 mmol/L [facility] CO2 30 21 - 35 mmol/L [facility] BUN 9 6 - 19 mg/dL [facility] CREATININE 0.70 0.5 - 1.5 mg/dL [facility] GLUCOSE 114(H) 70 - 99 mg/dL [facility] CALCIUM 10.7(H) 8.4 - 10.3 mg/dL [facility] EGFR >120 >59 mL/min/1.7 3m2 [facility] Comment:Estimated glomerular filtration rate calculated using the CKD-EPI refit equation. ANION GAP 20 10 - 20 mmol/L [facility] Blood 04/03/2024 7:41 PM EST 04/03/2024 7:44 PM EST Rafael Flores MD LAB BLOOD ORDERA BLES Performing Organization Address [facility]/ZIP Co de Phone Number [address] [address] * (ABNORMAL) POCT Glucose (04/03/2024 7:33 PM EST) Glucose 113(A) 70 - 100 mg/dL Rafael Flores MD POINT OF CARE TE ST ORDERABLES * (ABNORMAL) POCT Glucose (04/03/2024 7:29 PM EST) Glucose, POCT 113(H) 70 - 100 mg/dL [facility] 04/03/2024 7:29 PM EST 04/03/2024 7:34 PM EST Unknown Unknown MD POINT OF CARE TEST O RDERABLES Performing Organization Address [facility] de Phone Number [address] [address] * COVID Pandemic Respiratory Viral Order (PRO) (04/03/2024 7:27 PM EST) Test Ordered COVID, Flu has been ordered [facility] Specimen Source/Descriptio n NASOPHARYNGEAL SWAB [facility] Influenza A PCR Not Detected Not Detected [facility] Influenza B PCR Not Detected Not Detected [facility] SARS-CoV 2 (COVID-19) PCR Not Detected Not Detected [facility] Comment: SARS-CoV-2 not detected Negative results do not preclude SARS-CoV-2 infection and should not be used as the sole basis for patient management decisions. Negative results must be combined with clinical observations, patient history, and epidemiological information. Other (Nasopharyngeal swab) 04/03/2024 7:27 PM EST 04/03/2024 7:35 PM EST Rafael Flores MD BODY FLUIDS AND STOOLS ORDERABLES Performing Organization Address [facility] Co de Phone Number [address] [address] * Outside Lab (03/14/2024 12:40 PM EST) [...] PM EDT) C. trachomatis DNA DETECTED(A) NEG [facility] Comment:Genexpert Amplified PCR GC rRNA NOT DETECTED [facility] Comment:Genexpert Amplified PCR 10/19/2023 12:1 4 PM EDT 10/19/2023 1:08 PM EDT Judith SIMS LAB BLOOD ORDERABLES [facility] [address] [place] [address], [facility] [phone] * PAP SMEAR FOR RESULT ENTRY ONLY (01/07/2023) Pap smear [facility] Historical Provider MD DAVIS MAINTENANC E * Hepatitis C antibody, qualitative (11/25/2021 10:36 AM EDT) HCV ANTIBODY Non-Reacti ve Non-Reacti ve [facility] Blood 11/25/2021 10:3 6 AM EDT 11/25/2021 11:01 AM EDT Lester Salcedo MD LAB BLOOD ORDER DONTE [facility], [address] [address], [facility] from Last 3 Months or Most Recently Relevant to Health Maintenance Care Teams Sales Clerk Supervisor Relationship Specialty Start Date End Date Maye Avila MD [address] [place] [address] [email or web address] PCP - General Internal Medicine 06/13/23 Honey Pollock PA-C [email or web address] Physician Solvent Plant Treater 09/27/22 Lester Salcedo MD [email or web address] Rheumatology 09/27/22 Additional Source Comments The information contained in this document represents components of the legal health record. It is not the complete legal health record.[facility]
--- OUTSIDE RECORDS SUMMARY | 2024-06-11 14:10 | XMS_ITS | Encounter Summary ---
Author Organization [facility] Address [address] [place], [place] [id number] Phone Care Team Providers Care Tailor Men'S Ready To Wear Name Role Phone Honey Pollock PA-C Unavailable [phone] Lester Salcedo MD Unavailable [phone] Barbara Wilks MD Primary Care Provider Maye Avila MD Primary Care Provider +[phone] Barbara Wilks MD Primary Care Provider Boo Arroyo LCSW Unavailable +02-14 [phone] Maye Avila MD Primary Care Provider +02-14 [phone] Maye Melton MD, MSc Unavailable Jenifer Rock RN Unavailable + Harsh De La Rosa Unavailable [email or web address] Sravanthi Harmon Unavailable Encounter Details Date Type Department Care Team (Late st Contact Info) Description 03/02/2023 Procedure Pass MRI 81 [facility], 4th [place] [address] Social History Tobacco Use Types Packs/Day Years [...] high school, GED, job training, learning the Sudanese language, technical skills, or developing parenting skills)? [...] Info) Description 10/04/2024 2:20 PM EDT Appointment [facility] [address] [place] [address] Unknown, Unknown, Maye Abdalla MD [address] [place] [address] documented as of this encounter Visit Diagnoses [...] documented as of this encounter Care Teams Tailor Men'S Ready To Wear Relationship Specialty Start Date End Date Barbara Wilks MD [address] [place] [address] [email or web address] PCP - General Internal Medicine 02/28/23 03/02/23 Maye Avila MD [address] [place] [address] PCP - General Internal Medicine 03/03/23 04/10/23 Barbara Wilks MD [address] [place] [address] [email or web address] PCP - General Internal Medicine 04/11/23 06/12/23 Maye Avila MD [address] [place] [address] PCP - General Internal Medicine 06/13/23 Honey Pollock PA-C Physician Paper Production Engineer 09/27/22 Lester Salcedo MD Rheumatology 09/27/22 Boo Arroyo, NATE [address] [place] [address] [email or web address] [facility] 04/14/23 05/12/23 Maye Melton MD, MSc [address] [place] [address] i[employer] Plus Human Resource AdvisorPersonal Banking Representative Medicine 06/27/23 07/17/23 Jenifer Rock, WALESKA [address] [place] [address] [employer] Plus Human Resource Advisor 06/27/23 aHrsh Ta [address] [place] [address] [employer] Plus Community Health Worker 06/27/23 07/17/23 Sravanthi Trinidad [address] [place] [address] [email or web address] iCMP Plus Nut Orchardist 06/27/23 07/17/23 documented as of this encounter Additional Source Comments The information contained in this document represents components of the legal health record. It is not the complete legal health record.[facility]
--- OUTSIDE RECORDS SUMMARY | 2024-06-11 14:10 | XMS_ITS | Encounter Summary ---
Author Organization [facility] Address [address] [place], [place] [id number] Phone Care Team Providers Care Educational Fundraising Director Name Role Phone Honey Pollock PA-C Unavailable [phone] Lester Salcedo MD Unavailable [phone] Barbara Wilks MD Primary Care Provider Maye Avila MD Primary Care Provider +[phone] Barbara Wliks MD Primary Care Provider Boo Arroyo LCSW Unavailable +[phone] Maye Avila MD Primary Care Provider +02-14 [phone] Maye Melton MD, MSc Unavailable Jenifer Rock RN Unavailable + Harsh De La Rosa Unavailable [email or web address] [email or web address] [email or web address] Unavailable Encounter Details Date Type Department Care Team (Late st Contact Info) Description 03/02/2023 Procedure Pass [facility] MRI 81 [facility], 4th [place] [address] Social History Tobacco Use Types Packs/Day Years [...] high school, GED, job training, learning the Palauan language, technical skills, or developing parenting skills)? [...] Description 10/04/2024 2:20 PM EDT Appointment [facility] [address] [place] [address] Unknown, Unknown, Maye Abdalla MD [address] [place] [address] documented as of this encounter Visit Diagnoses [...] documented as of this encounter Care Teams Educational Fundraising Director Relationship Specialty Start Date End Date Barbara Wilks MD [address] [place] [address] [email or web address] PCP - General Internal Medicine 02/28/23 03/02/23 Maye Avila MD [address] [place] [address] PCP - General Internal Medicine 03/03/23 04/10/23 Barbara Wilks MD [address] [place] [address] [email or web address] PCP - General Internal Medicine 04/11/23 06/12/23 Maye Avila MD [address] [place] [address] PCP - General Internal Medicine 06/13/23 Honey Pollock PA-C Physician Elementary Spanish Teacher 09/27/22 Lester Salcedo MD Rheumatology 09/27/22 Boo Arroyo, NATE [address] [place] [address] [email or web address] [facility] 04/14/23 05/12/23 Maye Melton MD, MSc [address] [place] [address] iCMP Plus Demolition WorkerChemical Processor Medicine 06/27/23 07/17/23 Jenifer Rock, WALESKA [address] [place] [address] [employer] Plus Demolition Worker 06/27/23 Harsh Ta [address] [place] [address] iCMP Plus Community Health Worker 06/27/23 07/17/23 Sravanthi Trinidad [address] [place] [address] [email or web address] iCMP Plus Paint Roller Cover Machine Setter 06/27/23 07/17/23 documented as of this encounter Additional Source Comments The information contained in this document represents components of the legal health record. It is not the complete legal health record.[facility]
--- OUTSIDE RECORDS SUMMARY | 2024-06-11 14:11 | XMS_ITS | Encounter Summary ---
Author Organization [facility] Address [address] [place] [address] Phone Care Team Providers Care Educational Interpreter Name Role Phone Mariaelena Howell MD Primary Care Provider + [phone] Tari Palacios Primary Care Provider [phone] Maye Avila MD Primary Care Provider +02-14 Maye Avila MD Primary Care Provider +02-14 Honey Pollock PA-C Unavailable + Lester Salcedo MD Unavailable [phone] Maye Avila MD Primary Care Provider +02-14 Barbara Wilks MD Primary Care Provider + Maye Avila MD Primary Care Provider +02-14 Barbara Wilks MD Primary Care Provider + Maye Avila MD Primary Care Provider +02-14 Barbara Wilks MD Primary Care Provider + Boo Arroyo LCSW Unavailable +02-14 [phone] Maye Avila MD Primary Care Provider +02-14 Maye Melton MD, MSc Unavailable Jenifer Rock RN Unavailable + Harsh De La Rosa Unavailable [email or web address] Sravanthi Harmon Unavailable Encounter Details Date Type Department Care Team (Late st Contact Info) Description 01/29/2021 Procedure Pass [facility] [address] [place] [address] Social History Tobacco Use Types Packs/Day Years [...] Info) Description 10/04/2024 2:20 PM EDT Appointment [address] [address] Unknown, Unknown, Maye Abdalla MD [address] [place] [address] [email or web address] documented as of this encounter Visit Diagnoses [...] as of this encounter Care Teams Educational Interpreter Relationship Specialty Start Date End Date Mariaelena Howell MD [address] [place] [address] PCP - General Pediatrics 07/16/20 08/23/21 Tari Palacios PA [address] [place] [address] [email or web address] PCP - General 08/24/21 10/04/21 Maye Avila MD [address] [place] [address] [email or web address] PCP - General Internal Medicine 10/05/21 12/29/21 Maye Avila MD [address] [place] [address] PCP - General Internal Medicine 12/30/21 10/17/22 Maye Avila MD [address] [place] [address] PCP - General Internal Medicine 10/18/22 12/26/22 Barbara Wilks MD [address] [place] [address] [email or web address] PCP - General Internal Medicine 12/27/22 01/19/23 Maye Avila MD [address] [place] [address] PCP - General Internal Medicine 01/20/23 02/27/23 Barbara Wilks MD [address] [place] [address] [email or web address] PCP - General Internal Medicine 02/28/23 03/02/23 Maye Avila MD [address] [place] [address] [email or web address] PCP - General Internal Medicine 03/03/23 04/10/23 Barbara Wilks MD [address] [place] [address] [email or web address] PCP - General Internal Medicine 04/11/23 06/12/23 Maye Avila MD [address] [place] [address] PCP - General Internal Medicine 06/13/23 Honey Pollock PA-C [address] [place] [address] [email or web address] Physician Yarn Mercerizer Operator 09/27/22 Lester Salcedo MD [address] [place] [address] Rheumatology 09/27/22 Boo Arroyo, [address] [place] [address] [email or web address] [facility] Social Work 04/14/23 05/12/23 Maye Melton MD, MSc [address] [place] [address] [email or web address] iCMP Plus County NurseCar Varnisher Medicine 06/27/23 07/17/23 Jenifer Rock RN [address] [place] [address] iCMP Plus County Nurse 06/27/23 Harsh Ta [address] [place] [address] [employer] Plus Community Health Worker 06/27/23 07/17/23 Sravanthi Trinidad [address] [place] [address] [email or web address] iCMP Plus Founder 06/27/23 07/17/23 documented as of this encounter Additional Source Comments The information contained in this document represents components of the legal health record. It is not the complete legal health record.[facility]
--- OUTSIDE RECORDS SUMMARY | 2024-06-11 14:11 | XMS_ITS | Encounter Summary ---
Author Organization [facility] Address [address] [place] [address] Phone Care Team Providers Care Personal Consultant Name Role Phone Mariaelena Howell MD Primary Care Provider + [phone] Tari Palacios Primary Care Provider [phone] Maye Avila MD Primary Care Provider +02-14 Maye Avila MD Primary Care Provider +02-14 Honey Pollock PA-C Unavailable + Lester Salcedo MD Unavailable [phone] Maye Avila MD Primary Care Provider +02-14 Barbara Wilks MD Primary Care Provider + Maye Avila MD Primary Care Provider +02-14 Barbara Wilks MD Primary Care Provider + Maye Avila MD Primary Care Provider +02-14 Barbara Wilks MD Primary Care Provider + Boo Arroyo LCSW Unavailable +02-14 [phone] Maye vAila MD Primary Care Provider +02-14 Maye Melton MD, MSc Unavailable Jenifer Rock RN Unavailable + Harsh De La Rosa Unavailable [email or web address] Sravanthi Harmon Unavailable Reason for Referral * MRI/CAT Scan - Closed Specialty Diagnoses / Procedures Referred By Uzma t Referred To Contact Radiology Diagnoses Other intervertebral disc degeneration, lumbar region Procedures MRI Lumbar Spine Janae Maciel NP [address] [place] [address] Referral ID Status Reason Start Date Expiration Date Visits Re quested Visits Authorized [id number] Closed 02/16/2021 05/17/2021 1 1 Encounter Details Date Type Department Care Team (Latest Contact Info) Description 01/29/2021 Transcribe Orders Virtual Department [address] [place] [address] Janae Maciel NP [address] [place] [phone] [email or web address] Other idiopathic scoliosis, thoracic region (Primary Dx); [...] Info) Description 10/04/2024 2:20 PM EDT Appointment [address] [address] Unknown, Unknown, Maye Abdalla MD [address] [place] [address] [email or web address] documented as of this encounter Results * [...] documented as of this encounter Care Teams Personal Consultant Relationship Specialty Start Date End Date Mariaelena Howell MD [address] [place] [address] PCP - General Pediatrics 07/16/20 08/23/21 Tari Palaciso PA [address] [place] [address] [email or web address] PCP - General 08/24/21 10/04/21 Maye Avila MD [address] [place] [address] PCP - General Internal Medicine 10/05/21 12/29/21 Maye Avila MD [address] [place] [address] PCP - General Internal Medicine 12/30/21 10/17/22 Maye Avila MD [address] [place] [address] PCP - General Internal Medicine 10/18/22 12/26/22 Barbara Wilks MD [address] [place] [address] [email or web address] PCP - General Internal Medicine 12/27/22 01/19/23 Maye Avila MD [address] [place] [address] [email or web address] PCP - General Internal Medicine 01/20/23 02/27/23 Barbara Wilks MD [address] [place] [address] [email or web address] PCP - General Internal Medicine 02/28/23 03/02/23 Maye Avila MD [address] [place] [address] [email or web address] PCP - General Internal Medicine 03/03/23 04/10/23 Barbara Wilks MD [address] [place] [address] [email or web address] PCP - General Internal Medicine 04/11/23 06/12/23 Maye Avila MD [address] [place] [address] [email or web address] PCP - General Internal Medicine 06/13/23 Honey Pollock PA-C [address] [place] [address] [email or web address] Physician Principal Secretary 09/27/22 Lester Salcedo MD [address] [place] [address] [email or web address] Rheumatology 09/27/22 Boo Arroyo, [address] [address] [email or web address] [facility] Social Work 04/14/23 05/12/23 Maye Melton MD, MSc [address] [place] [address] [email or web address] iCMP Plus Industrial Technology Education TeacherDesktop Support Specialist Medicine 06/27/23 07/17/23 Jenifer Rock, WALESKA [address] [place] [address] [email or web address] [facility] Plus Industrial Technology Education Teacher 06/27/23 Harsh Ta [address] [place] [address] [email or web address] [facility] Plus Community Health Worker 06/27/23 07/17/23 Sravanthi Trinidad [address] [place] [address] [email or web address] [facility] Plus Ebay Reseller 06/27/23 07/17/23 documented as of this encounter Additional Source Comments The information contained in this document represents components of the legal health record. It is not the complete legal health record.[facility]
--- OUTSIDE RECORDS SUMMARY | 2024-06-11 14:11 | XMS_ITS | Encounter Summary ---
Author Organization [facility] Address [address] [place] [address] Phone Care Team Providers Care Model Maker Fiberglass Name Role Phone Mariaelena Howell MD Primary Care Provider + [phone] Tari Palacios Primary Care Provider [phone] Maye Avila MD Primary Care Provider +02-14 Maye Avila MD Primary Care Provider +02-14 Honey Pollock PA-C Unavailable + Lester Salcedo MD Unavailable [phone] Maye Avila MD Primary Care Provider +02-14 Barbara Wilks MD Primary Care Provider + Maye Avila MD Primary Care Provider +02-14 Barbara Wilks MD Primary Care Provider + Maye Avila MD Primary Care Provider +02-14 Barbara Wilks MD Primary Care Provider + Boo Arroyo LCSW Unavailable +02-14 [phone] Maye Avila MD Primary Care Provider +02-14 Maye Melton MD, MSc Unavailable Jenifer Rock RN Unavailable + Harsh De La Rosa Unavailable [email or web address] Sravanthi Harmon Unavailable Encounter Details Date Type Department Care Team (Late st Contact Info) Description 12/24/2020 Transcribe Orders Virtual Department [address] [place] [address] Mariaelena Howell MD [address] [place] [address] Left lower quadrant abdominal pain (Primary Dx); [...] 10/04/2024 2:20 PM EDT Appointment [facility] [address] [place] [address] Unknown, Unknown, Maye Abdalla MD [address] [place] [address] [email or web address] documented as of this encounter Results * [...] documented as of this encounter Care Teams Model Maker Fiberglass Relationship Specialty Start Date End Date Mariaelena Howell MD [address] [place] [address] PCP - General Pediatrics 07/16/20 08/23/21 Tari Palacios PA [address] [place] [address] [email or web address] PCP - General 08/24/21 10/04/21 Maye Avila MD [address] [place] [address] [email or web address] PCP - General Internal Medicine 10/05/21 12/29/21 Maye Avila MD [address] [place] [address] [email or web address] PCP - General Internal Medicine 12/30/21 10/17/22 Maye Avila MD [address] [place] [address] [email or web address] PCP - General Internal Medicine 10/18/22 12/26/22 Barbara Wilks MD [address] [place] [address] [email or web address] PCP - General Internal Medicine 12/27/22 01/19/23 Maye Avila MD [address] [place] [address] [email or web address] PCP - General Internal Medicine 01/20/23 02/27/23 Barbara Wilks MD [address] [place] [address] [email or web address] PCP - General Internal Medicine 02/28/23 03/02/23 Maye Avila MD [address] [place] [address] PCP - General Internal Medicine 03/03/23 04/10/23 Barbara Wilks MD [address] [place] [address] [email or web address] PCP - General Internal Medicine 04/11/23 06/12/23 Maye Avila MD [address] [place] [email or web address] PCP - General Internal Medicine 06/13/23 Honey Pollock PA-C [address] [place] [address] Physician Picture Frame Maker 09/27/22 Lester Salcedo MD [address] [place] [address] Rheumatology 09/27/22 Boo Arroyo, [address] [place] [address] [email or web address] [facility] Social Work 04/14/23 05/12/23 Maye Melton MD, MSc [address] [place] [address] iCMP Plus Processing OperatorSeaman Officer Medicine 06/27/23 07/17/23 Jenifer Rock RN [address] [place] [address] iCMP Plus Processing Operator 06/27/23 Harsh Ta [address] [place] [address] [employer] Plus Community Health Worker 06/27/23 07/17/23 Sravanthi Trinidad [address] [place] [address] iCMP Plus Production Reproduction Manager 06/27/23 07/17/23 documented as of this encounter Additional Source Comments The information contained in this document represents components of the legal health record. It is not the complete legal health record.[facility]
--- OUTSIDE RECORDS SUMMARY | 2024-06-11 14:11 | XMS_ITS | Clinical Summary ---
Author Organization [facility] Address [address] [place] [address] Care Team Providers Care Precision Grinder Name Role Phone Maye Avila MD Primary Care Provider [phone] Medications LORazepam (ATIVAN) 0.5 MG tablet 0.5 [...] Type Department Care Team Description 04/02/[address] [address] Celine Can, RN PAP TRACKING [...] CHLAMYDIA TRACHOMATIS (CONVERSION) DETECTED(A) NEG CONVERSION FROM [employer] Comment: [employer] Amplified PCR NEISSERIA GONORRHOEAE (CONVERSION) NOT DETECTED NEG CONVERSION FROM [facility] Comment: [employer] Amplified PCR 10/19/2023 12:1 4 PM EDT 10/19/2023 1:08 PM EDT us Judith SIMS MICROBIOLOGY - GENERAL ORDER DONTE Final Result CONVERSION FROM [employer] from Last 3 Months or Most Recently Relevant to Health Maintenance Insurance [facility] Care Teams Precision Grinder Relationship Specialty Start Date End Date Maye Avila MD PCP - General 02/10/23
--- OUTSIDE RECORDS SUMMARY | 2024-06-11 14:11 | XMS_ITS | Encounter Summary ---
[place] [address] Phone Care Team Providers Care Print Buyer Name Role Phone Mariaelena Howell MD Primary Care Provider + [phone] Mariaelena Howell MD Primary Care Provider + [phone] Tari Palacios Primary Care Provider [phone] Maye Avila MD Primary Care Provider +02-14 Maye Avila MD Primary Care Provider +02-14 Honey Pollock PA-C Unavailable + Lester Salcedo MD Unavailable [phone] Maye Avila MD Primary Care Provider +02-14 Barbara Wilks MD Primary Care Provider + Maye Avila MD Primary Care Provider +02-14 Barbara Wilks MD Primary Care Provider + Maye Avila MD Primary Care Provider +02-14 Barbara Wilks MD Primary Care Provider + Boo Arroyo LCSW Unavailable +[phone] Maye Avila MD Primary Care Provider [phone] Maye Melton MD, MSc Unavailable Jenifer Rock RN Unavailable [phone] Harsh De La Rosa Unavailable [email or web address] Sravanthi Trinidad Unavailable Encounter Details Date Type Department Care Team (Late st Contact Info) Description 07/15/2020 Procedure Pass [facility], Ct Scan - [address] [address] Social History Tobacco Use Types Packs/Day Years [...] Info) Description 10/04/2024 2:20 PM EDT Appointment [facility] [address] [place] [address] Unknown, Unknown, MD Avila, Maye Addison MD [address] [place] [address] [email or web address] [...] documented as of this encounter Care Teams Print Buyer Relationship Specialty Start Date End Date Mariaelena Howell MD [address] [place] [address] PCP - General Pediatrics 07/16/20 08/23/21 Mariaelena Howell MD [address] [place] [address] PCP - General 07/15/20 07/15/20 Tari Palacios PA [address] [place] [address] [email or web address] PCP - General 08/24/21 10/04/21 Maye Avila MD [address] [place] [address] [email or web address] PCP - General Internal Medicine 10/05/21 12/29/21 Maye Avila MD [address] [place] [address] PCP - General Internal Medicine 12/30/21 10/17/22 Maye Avila MD [address] [place] [address] PCP - General Internal Medicine 10/18/22 12/26/22 Barbara Wilks MD [address] [place] [address] [email or web address] PCP - General Internal Medicine 12/27/22 01/19/23 Maye Avila MD [address] [place] [address] [email or web address] PCP - General Internal Medicine 01/20/23 02/27/23 Barbara Wilks MD [address] [place] [address] [email or web address] PCP - General Internal Medicine 02/28/23 03/02/23 Maye Avila MD [address] [place] [address] [email or web address] PCP - General Internal Medicine 03/03/23 04/10/23 Barbara Wilks MD [address] [place] [address] [email or web address] PCP - General Internal Medicine 04/11/23 06/12/23 Maye Avila MD [address] [place] [address] [email or web address] PCP - General Internal Medicine 06/13/23 Honey Pollock PA-C [address] [place] [address] [email or web address] Physician Etl Tester 09/27/22 Lester Salcedo MD [address] [place] [address] [email or web address] Rheumatology 09/27/22 Boo Arroyo, [address] [address] [email or web address] [facility] Social Work 04/14/23 05/12/23 Maye Melton MD, MSc [address] [place] [address] [email or web address] [facility] Plus Racket StringerHospital Insurance Clerk Medicine 06/27/23 07/17/23 Jenifer Rock RN [address] [place] [address] [email or web address] [facility] Plus Racket Stringer 06/27/23 Harsh Ta [address] [place] [address] [email or web address] [facility] Plus Community Health Worker 06/27/23 07/17/23 Sravanthi Trinidad [address] [place] [address] [email or web address] [facility] Plus Re Dye Hand 06/27/23 07/17/23 documented as of this encounter Additional Source Comments The information contained in this document represents components of the legal health record. It is not the complete legal health record.[facility]
--- OUTSIDE RECORDS SUMMARY | 2024-06-11 14:11 | XMS_ITS | Encounter Summary ---
Author Organization [facility] Address [address] [place] [address] Phone Care Team Providers Care Sales And Marketing Intern Name Role Phone Mariaelena Howell MD Primary Care Provider + [phone] Tari Palacios Primary Care Provider [phone] Maye Avila MD Primary Care Provider +02-14 Maye Avila MD Primary Care Provider +02-14 Honey Pollock PA-C Unavailable + Lester Salcedo MD Unavailable [phone] Maye Avila MD Primary Care Provider +02-14 Barbara Wilks MD Primary Care Provider + Maye Avila MD Primary Care Provider +02-14 Barbara Wilks MD Primary Care Provider + Maye Avila MD Primary Care Provider +02-14 Barbara Wilks MD Primary Care Provider + Boo Arroyo LCSW Unavailable +[phone] Maye Avila MD Primary Care Provider +02-14 Maye Melton MD, MSc Unavailable Jenifer Rock RN Unavailable + Harsh De La Rosa Unavailable [email or web address] [email or web address] Harmon Unavailable Encounter Details Date Type Department Care Team (Late st Contact Info) Description 01/13/2021 Ancillary Orders [facility], X-Ray - [facility] [address] [place] [address] Christina Blackburn MD [address] [facility], [address] [place] [address] [email or web address] Abdominal pain, unspecified abdominal location Social History [...] Description 10/04/2024 2:20 PM EDT Appointment [address] [phone] Unknown, Unknown, Maye Abdalla MD [address] [place] [address] [email or web address] documented as of this encounter Results * [...] associated symptomatology in this region. POS - [id number] Narrative 01/13/2021 11:34 AM EST COMPARISON: 07/15/2020 [...] any associatedsymptomatology in this region. POS - [id number] Christina Blackburn MD IMG XR ABDOMEN documented [...] documented as of this encounter Care Teams Sales And Marketing Intern Relationship Specialty Start Date End Date Mariaelena Howell MD [address] [place] [address] PCP - General Pediatrics 07/16/20 08/23/21 Tari Palacios PA [address] [place] [address] [email or web address] PCP - General 08/24/21 10/04/21 Maye Avila MD [address] [place] [address] [email or web address] PCP - General Internal Medicine 10/05/21 12/29/21 Maye Avila MD [address] [place] [address] PCP - General Internal Medicine 12/30/21 10/17/22 Maye Avila MD [address] [place] [address] PCP - General Internal Medicine 10/18/22 12/26/22 Barbara Wilks MD [address] [place] [address] [email or web address] PCP - General Internal Medicine 12/27/22 01/19/23 Maye Avila MD [address] [place] [address] PCP - General Internal Medicine 01/20/23 02/27/23 Barbara Wilks MD [address] [place] [address] [email or web address] PCP - General Internal Medicine 02/28/23 03/02/23 Maey Avila MD [address] [place] [address] [email or web address] PCP - General Internal Medicine 03/03/23 04/10/23 Barbara Wilks MD [address] [place] [address] [email or web address] PCP - General Internal Medicine 04/11/23 06/12/23 Maye Avila MD [address] [place] [address] PCP - General Internal Medicine 06/13/23 Honey Pollock PA-C [address] [place] [address] Physician Senior Courtroom Clerk 09/27/22 Lester Salcedo MD [address] [place] [address] Rheumatology 09/27/22 Boo Arroyo, [address] [address] [email or web address] Social Work 04/14/23 05/12/23 Maye Melton MD, MSc [address] [place] [address] [email or web address] [employer] Sheet Metal Duct Worker SupervisorChild Care Cook Medicine 06/27/23 07/17/23 Jenifer Rock RN [address] [place] [address] [employer] Sheet Metal Duct Worker Supervisor 06/27/23 Harsh Ta [address] [place] [address] [email or web address] [employer] Community Health Worker 06/27/23 07/17/23 Sravanthi Trinidad [address] [place] [address] [email or web address] [employer] Plus Child & Adolescent Psychiatrist 06/27/23 07/17/23 documented as of this encounter Additional Source Comments The information contained in this document represents components of the legal health record. It is not the complete legal health record.[facility]
--- OUTSIDE RECORDS SUMMARY | 2024-06-11 14:11 | XMS_ITS | Encounter Summary ---
Author Organization [facility] Address [address] [place] [address] Phone Care Team Providers Care Train Engineer Name Role Phone Mariaelena Howell MD Primary Care Provider + [phone] Tari Palacios Primary Care Provider [phone] Maye Avila MD Primary Care Provider +02-14 Maye Avila MD Primary Care Provider +02-14 Honey Pollock PA-C Unavailable + Lester Salcedo MD Unavailable [phone] Maye Avila MD Primary Care Provider +02-14 Barbara Wilks MD Primary Care Provider + Maye Avila MD Primary Care Provider +02-14 Barbara Wilks MD Primary Care Provider + Maye Avila MD Primary Care Provider +02-14 Barbara Wilks MD Primary Care Provider + Boo Arroyo LCSW Unavailable +02-14 [phone] Maye Avila MD Primary Care Provider +02-14 Maye Melton MD, MSc Unavailable Jenifer Rock RN Unavailable + Harsh De La Rosa Unavailable [email or web address] Sravanthi Harmon Unavailable Encounter Details Date Type Department Care Team (Late st Contact Info) Description 01/14/2021 Transcribe Orders Virtual Department [address] [place] [address] Mariaelena Howell MD [address] [place] [address] Nausea (Primary Dx); LLQ pain Social History [...] 10/04/2024 2:20 PM EDT Appointment [facility] [address] [place] [phone] Unknown, Unknown, Maye Abdalla MD [address] [place] [address] documented as of this encounter Results * [...] documented as of this encounter Care Teams Train Engineer Relationship Specialty Start Date End Date Mariaelena Howell MD [address] [place] [address] PCP - General Pediatrics 07/16/20 08/23/21 Tari Palacios PA [address] [place] [address] [email or web address] PCP - General 08/24/21 10/04/21 Maye Avila MD [address] [place] [address] [email or web address] PCP - General Internal Medicine 10/05/21 12/29/21 Maye Avila MD [address] [place] [address] PCP - General Internal Medicine 12/30/21 10/17/22 Maye Avila MD [address] [place] [address] [email or web address] PCP - General Internal Medicine 10/18/22 12/26/22 Barbara Wilks MD [address] [place] [address] [email or web address] PCP - General Internal Medicine 12/27/22 01/19/23 Maey Avila MD [address] [place] [address] [email or web address] PCP - General Internal Medicine 01/20/23 02/27/23 Barbara Wilks MD [address] [place] [address] [email or web address] PCP - General Internal Medicine 02/28/23 03/02/23 Maye Avila MD [address] [place] [address] [email or web address] PCP - General Internal Medicine 03/03/23 04/10/23 Barbara Wilks MD [address] [place] [address] [email or web address] PCP - General Internal Medicine 04/11/23 06/12/23 Maye Avila MD [address] [place] [address] [email or web address] PCP - General Internal Medicine 06/13/23 Honey Pollock PA-C [address] [place] [address] [email or web address] Physician Pipelaying Fitter 09/27/22 Lester Salcedo MD [address] [place] [address] Rheumatology 09/27/22 Boo Arroyo, NATE [address] [place] [address] [email or web address] Social Work 04/14/23 05/12/23 Maye Melton MD, MSc [address] [place] [address] [email or web address] [employer] Plus Dental AideMash Processing Operator Medicine 06/27/23 07/17/23 Jenifer Rock RN [address] [place] [address] [facility] Plus Dental Aide 06/27/23 4 Harsh De La Rosa [address] [place] [address] [email or web address] [facility] Plus Community Health Worker 06/27/23 07/17/23 Sravanthi Trinidad [address] [place] [address] [email or web address] [facility] Plus Theatrical Dresser 06/27/23 07/17/23 documented as of this encounter Additional Source Comments The information contained in this document represents components of the legal health record. It is not the complete legal health record.[facility]
--- OUTSIDE RECORDS SUMMARY | 2024-06-11 14:11 | XMS_ITS | Encounter Summary ---
Author Organization [facility] Address [address] [place], [place] [address] Phone Care Team Providers Care Underground Mine Superintendent Name Role Phone Honey Pollock PA-C Unavailable [phone] Lester Salcedo MD Unavailable [phone] Maye Avila MD Primary Care Provider +02-14 [phone] Barbara Wilks MD Primary Care Provider Maye Avila MD Primary Care Provider [phone] Barbara Wilks MD Primary Care Provider Boo Arroyo LCSW Unavailable +[phone] Maye Avila MD Primary Care Provider [phone] Maye Melton MD, MSc Unavailable + Jenifer Rock RN Unavailable + Harsh De La Rosa Unavailable [email or web address] Sravanthi Harmon Unavailable + Encounter Details Date Type Department Care Team (Late st Contact Info) Description 01/25/2023 Procedure Pass [facility] Physicians - Endoscopy - [place] [address] [place] [address] Social History Tobacco Use Types Packs/Day Years [...] high school, GED, job training, learning the [place] language, technical skills, or developing parenting skills)? [...] Info) Description 10/04/2024 2:20 PM EDT Appointment [facility] [address] [place] [address] Unknown, Unknown, Maye Abdalla MD [address] [place] [address] [email or web address] documented as of this encounter Visit Diagnoses [...] documented as of this encounter Care Teams Underground Mine Superintendent Relationship Specialty Start Date End Date Maye Avila MD [address] [place] [address] PCP - General Internal Medicine 01/20/23 02/27/23 Barbara Wilks MD [address] [place] [address] [email or web address] PCP - General Internal Medicine 02/28/23 03/02/23 Maye Avila MD [address] [place] [address] PCP - General Internal Medicine 03/03/23 04/10/23 Barbara Wilks MD [address] [place] [address] [email or web address] PCP - General Internal Medicine 04/11/23 06/12/23 Maye Avila MD [address] [place] [address] PCP - General Internal Medicine 06/13/23 Honey Pollock PA-C Physician Recorder Gravity Prospecting 09/27/22 Lester Salcedo MD Rheumatology 09/27/22 Boo Arroyo, [address] [address] [email or web address] [email or web address] Social Work 04/14/23 05/12/23 Maye Melton MD, MSc [address] [place] [address] [employer] Plus Sleeve FixerCarpet Loom Fixer Medicine 06/27/23 07/17/23 Jenifer Rock, WALESKA [address] [place] [address] [employer] Plus Sleeve Fixer 06/27/23 Harsh Ta [address] [place] [address] [employer] Plus Community Health Worker 06/27/23 07/17/23 Sravanthi Trinidad [address] [place] [address] [employer] Plus Billet Examiner 06/27/23 07/17/23 documented as of this encounter Additional Source Comments The information contained in this document represents components of the legal health record. It is not the complete legal health record.[facility]
--- NOTE | 2024-06-11 14:24 | PC.NURSE ---
Security called bedside after patient's friends from school were noted to be negatively impacting patient care. Patient remained calm/cooperative/aware of plan of care until friends came to visit. Pt noted to be extremely tearful/distraught. Friends were found laying in bed with patient after nurse discharge had previously asked friends to remove themselves from the bed. They were also found speaking to multiple staff members including the sitter, ED techs and multiple ED RN's stating that the patient was being neglected and not receiving proper care in the ED. They also stated that it was illegal for her to be held here against her will. Patient/friends once again notified that patient was placed on a section 12 and will not be leaving at this time. Friends removed from ED by security. 1:[address]
[2024-06-11 14:56] LABS: Alanine Aminotransferase 21 U/L (0-31); Albumin Level 4.3 g/dL (3.5-5.0); Alkaline Phosphatase 65 U/L (39-117); Anion Gap 18 (12-20); Aspartate Amino Transferase 21 U/L (5-31); Bilirubin Total 1.7 mg/dL (0.0-1.0); Blood Urea Nitrogen 17 mg/dL (9-16); Calcium 8.9 mg/dL (8.4-10.2); Carbon Dioxide 28 mmol/L (22-29); Chloride 85 mmol/L (96-108); Creatinine Clr Calc Pharmacy 78.5; Estimated Glomerular Filt Rate > 60; Glucose Random 96 mg/dL (60-115); Potassium 2.3 mmol/L (3.3-5.1); Sodium 129 mmol/L (135-145)
[2024-06-11 15:12] LABS: VBG Base Excess 10.4 mmol/L; VBG HCO3 31 mmol/L (22-26); VBG pCO2 30 mmHg; VBG pH 7.62 (7.32-7.43); VBG pO2 49 mmHg
[2024-06-11 15:13] LABS: Venous Blood Gas Refer to POC result
[2024-06-11] MEDS: diazePAM 10 MG/2 ML CARTRIDGE 5 MG IVPUSH (15:28)
[2024-06-11 15:51] LABS: Appearance Urine Clear; Color Urine Yellow; Glucose Urine UA Negative (Negative); Leukocyte Esterase Urine Large (3+) (Negative); Nitrite Urine Negative (Negative); PH >= 9.0 (5.0-9.0); Specific Gravity - Urine <= 1.005 (1.005-1.025); UMIC TRIGGER UACC YES; UPreg QC Valid YES; Urine Blood Negative (Negative); Urine Ketones 15 mg/dL (Negative); Urine Pregnancy NEGATIVE (NEGATIVE); Urine Protein Negative (Neg-Trace)
[2024-06-11 15:53] LABS: Bacteria Urine Trace (None Seen); Hyaline Casts Urine 0-2 /LPF (0-2); RBC Urine 0-2 /HPF (0-2); UACC Culture Trigger YES; WBC Urine 21-50 /HPF (0-5)
[2024-06-11] MEDS: cefTRIAXone sodium 1 GM VIAL IVPUSH (16:47)
[2024-06-11 16:49] LABS: VBG Base Excess 7.9 mmol/L; VBG HCO3 28 mmol/L (22-26); VBG pCO2 26 mmHg; VBG pH 7.63 (7.32-7.43); VBG pO2 83 mmHg
[2024-06-11 16:52] LABS: Venous Blood Gas Refer to POC result
--- NOTE | 2024-06-11 16:53 | PC.NURSE ---
Critical Lab value for VBG PH 7.[address] Carrillo notified.
[2024-06-11 17:01] LABS: Lactic Acid 1.3 mmol/L (0.5-2.0)
[2024-06-11 17:05] LABS: Anion Gap 14 (12-20); Blood Urea Nitrogen 12 mg/dL (9-16); Calcium 7.9 mg/dL (8.4-10.2); Carbon Dioxide 24 mmol/L (22-29); Chloride 97 mmol/L (96-108); Creatinine Clr Calc Pharmacy 88.3; Estimated Glomerular Filt Rate > 60; Glucose Random 88 mg/dL (60-115); Potassium 2.5 mmol/L (3.3-5.1); Sodium 132 mmol/L (135-145)
[2024-06-11 18:00] LABS: Amphetamine Screen Urine Not Detected (Not Detect); Barbiturates, Urine Not Detected (Not Detect); Benzodiazepines Screen Urine Not Detected (Not Detect); Buprenorphine Scr Not Detected (Not Detect); Cannabinoid Screen Urine POSITIVE (Not Detect); Cocaine Screen Urine Not Detected (Not Detect); Fentanyl, urine Not Detected (Not Detect); Methadone Screen, Urine Not Detected (Not Detect); Opiate Screen Urine Not Detected (Not Detect); Oxycodone Screen Urine Not Detected (Not Detect); Phencyclidine Screen Urine Not Detected (Not Detect)
--- NOTE | 2024-06-11 18:27 | PC.NURSE ---
pt verbalizing she believes she left wallet on stretcher when being dropped off by EMS. this RN called anuel IRAHETA x2 w/ no response. voicemail left. will reattempt.
--- NOTE | 2024-06-11 18:50 | PHA.MEDREC ---
Addendum entered by Toña Glover RPh 06/11/24 19:11: reviewed by [facility] Original Note: Pharmacy Consult ? Medication Reconciliation Pharmacy has completed the medication reconciliation. Spoke with patient and she confirmed she only takes OTC (Ibuprofen and Benadryl) medications and nothing else at this time.
[2024-06-11 20:43] LABS: Salicylate < 5.0 mg/dL (15-30)
--- NOTE | 2024-06-11 20:50 | PM.IMHP ---
History of Present Illness Date of Service: 06/11/24 Attending physician on admission: Edgardo iFgueroa Chief Complaint: Abdominal pain, nausea, vomiting, diarrhea Patient is a 23-year-old female with a past medical history significant for history of kidney stones, migraines, anxiety/depression, chronic vomiting syndrome and chronic diarrhea, who presented to the ED due to severe 10/10 left flank pain, chronic nausea, vomiting and diarrhea. She reports that her nausea vomiting and diarrhea are at baseline. She states that she has urinary frequency which is also chronic, with urgency and occasional urinary incontinence, no hematuria or dysuria. She denies any fever or chills. No upper respiratory symptoms including cough, chest pain, shortness of breath, rhinorrhea, nasal congestion. Review of Systems Constitutional: Constitutional: Denies body ache(s), Denies chills, Denies fever(s) and Denies headache(s) Eyes: Eyes: Denies change in vision and Denies photophobia ENT: Denies headache(s), Denies nasal congestion, Denies nasal discharge, Denies sinus pressure and Denies sore throat Cardiovascular: Cardiovascular: Denies chest pain, Denies syncope, Denies rapid heart rate, Denies leg edema and Denies dyspnea Respiratory: Respiratory: Denies chest congestion, Denies cough, Denies dyspnea and Denies wheezing Gastrointestinal: Gastrointestinal: Reports as per HPI Genitourinary: Genitourinary: Reports as per HPI Musculoskeletal: Musculoskeletal: Reports back pain Integumentary/Breasts: Skin/Breast: Denies rash Neurologic: Denies confusion, Denies syncope and Denies headache(s) Psychiatric: Psychiatric: Denies confusion Endocrine: Endocrine: Denies flushing Hematologic/Lymphatic: Hematologic/Lymphatic: Denies easy bleeding and Denies easy bruising Allergic/Immunologic: Allergic/Immunologic: Denies wheezing PMFSH Functional capacity: independent ambulation Patient : No Social History Unable to assess alcohol history related to: Unknown Alcohol intake: unknown Patient Tobacco Use Status: Former Tobacco user Smoked in Last 30 Days: No Use of substances other than those prescribed or required for medical reasons: No Advance Directives: No Advance Directives Information Provided: No Do you have a plan to hurt others: No Plan Patient : No Narrative: Occasional tobacco use, occasional alcohol, occasional marijuana (last use 2 days ago) Meds Allergies Allergy/AdvReac Type Severity Reaction Status Date / Time No Known Allergies Allergy Verified 06/11/24 11:32 Active Medications: Current Medications Acetaminophen (Acetaminophen 325 Mg Tablet) 650 mg PO Q6H PRN PRN Reason: Pain, Mild 1-3,fever,headache Calcium Carbonate (Calcium Carbonate 750 Mg Tab.Chew) 750 mg PO Q4H PRN PRN Reason: Heartburn Ceftriaxone Sodium (Ceftriaxone Sodium 1 Gm Vial) 1 gm IVPUSH Q24H HERNAN Magnesium Hydroxide (Milk Of Magnesia 30 Ml Oral.Susp) 30 ml PO DAILY PRN PRN Reason: Constipation Melatonin (Melatonin 3 Mg Tablet) 6 mg PO BEDTIME PRN PRN Reason: Insomnia Sodium Chloride (0.9 % Sodium Chloride Flush 3 Ml Syringe) 3 ml IVFLUSH QSHIFT HERNAN Home Medications ?Medication ?Instructions ?Recorded ?Confirmed ?Last Taken ?Type diphenhydramine HCl 25 mg capsule 25 mg PO BEDTIME PRN Allergy 06/11/24 06/11/24 Unknown History (Benadryl) Symptoms ibuprofen 200 mg tablet 600 - 800 mg PO Q6H PRN Pain 06/11/24 06/11/24 Unknown History Physical Exam Vital Signs and Narrative: Vital Signs: Last Vital Signs Temp 98.9 F 06/11/24 18:22 Pulse 80 06/11/24 18:22 Resp 16 06/11/24 18:22 BP 100/59 L 06/11/24 18:22 Pulse Ox 98 06/11/24 18:22 O2 Del Method Room Air 06/11/24 18:22 BMI result Body Mass Index 15.4 General: AOx3, no acute distress Resp: CTA bilaterally CVS: S1, S2, RRR GI: +BS, L CVAT, no distention Skin: Warm, dry Neuro: Cranial nerves II-XII grossly intact bilaterally. Motor grossly intact bilaterally Extremities: No LE edema Psych: Appropriate affect Const: General: No confusion Orientation/consciousness: No confusion Eyes: Direct Ophthalmoscopy: No photophobia Neuro: General: No confusion Results Labs 06/11/24 12:04 06/11/24 16:35 Labs: Laboratory Results - last 24 hr 06/11/24 06/11/24 06/11/24 12:04 14:02 15:02 MCV 81.2 MCH 29.7 MCHC 36.6 H RDW 13.0 Plt Count 391 MPV 9.1 L Immature Gran % (Auto) 0.5 H Neut % (Auto) 69.6 Lymph % (Auto) 17.1 L [place] % (Auto) 11.4 H Eos % (Auto) 1.1 Baso % (Auto) 0.3 Lymph # (Auto) 1.8 [place] # (Auto) 1.2 Eos # (Auto) 0.1 Baso # (Auto) 0.0 Abs Immat Gran (auto) 0.05 H Absolute Neuts (auto) 7.3 Absolute Nucleated RBC 0.000 Nucleated RBC % (auto) 0.0 VBG pH 7.62 H* VBG pCO2 30 VBG pO2 49 VBG HCO3 31 H VBG O2 Saturation 82.0 VBG Base Excess 10.4 Anion Gap 22 H 18 Estim Creat Clear Calc 72.5 78.5 Estimated GFR > 60 > 60 Random Glucose 114 96 Lactic Acid Calcium 10.3 H 8.9 D Magnesium 2.9 H Total Bilirubin 1.8 H 1.7 H Direct Bilirubin 0.5 AST 30 21 ALT 28 21 Alkaline Phosphatase 74 65 Total Protein 9.3 H 8.0 Albumin 5.0 4.3 Lipase 11 Beta-Hydroxybutyrate 1.00 H Beta HCG, Quant < 2 Urine Color Urine Appearance Urine pH Ur Specific [place] Urine Protein Urine Glucose (UA) Urine Ketones Urine Blood Urine Nitrite Ur Leukocyte Esterase Urine RBC Urine WBC Ur Squamous Epith Cells Urine Bacteria Hyaline Casts Urine Test Salicylates Urine Opiates Screen Ur Buprenorphine Scrn Ur Oxycodone Screen Urine Methadone Screen Urine Fentanyl Screen Ur Barbiturates Screen Ur Phencyclidine Scrn Ur Amphetamines Screen U Benzodiazepines Scrn Urine Cocaine Screen U Marijuana (THC) Screen 06/11/24 06/11/24 06/11/24 15:28 16:35 16:39 MCV MCH MCHC RDW Plt Count MPV Immature Gran % (Auto) Neut % (Auto) Lymph % (Auto) [place] % (Auto) Eos % (Auto) Baso % (Auto) Lymph # (Auto) [place] # (Auto) Eos # (Auto) Baso # (Auto) Abs Immat Gran (auto) Absolute Neuts (auto) Absolute Nucleated RBC Nucleated RBC % (auto) VBG pH 7.63 H* VBG pCO2 26 VBG pO2 83 VBG HCO3 28 H VBG O2 Saturation 99.0 VBG Base Excess 7.9 Anion Gap 14 Estim Creat Clear Calc 88.3 Estimated GFR > 60 Random Glucose 88 Lactic Acid 1.3 Calcium 7.9 L D Magnesium Total Bilirubin Direct Bilirubin AST ALT Alkaline Phosphatase Total Protein Albumin Lipase Beta-Hydroxybutyrate Beta HCG, Quant Urine Color Yellow Urine Appearance Clear Urine pH >= 9.0 Ur Specific [place] <= 1.005 Urine Protein Negative Urine Glucose (UA) Negative Urine Ketones 15 Urine Blood Negative Urine Nitrite Negative Ur Leukocyte Esterase Large (3+) H Urine RBC 0-2 Urine WBC 21-50 H Ur Squamous Epith Cells 3-5 Urine Bacteria Trace Hyaline Casts 0-2 Urine Test NEGATIVE Salicylates Urine Opiates Screen Not Detected Ur Buprenorphine Scrn Not Detected Ur Oxycodone Screen Not Detected Urine Methadone Screen Not Detected Urine Fentanyl Screen Not Detected Ur Barbiturates Screen Not Detected Ur Phencyclidine Scrn Not Detected Ur Amphetamines Screen Not Detected U Benzodiazepines Scrn Not Detected Urine Cocaine Screen Not Detected U Marijuana (THC) Screen POSITIVE H 06/11/24 19:57 MCV MCH MCHC RDW Plt Count MPV Immature Gran % (Auto) Neut % (Auto) Lymph % (Auto) [place] % (Auto) Eos % (Auto) Baso % (Auto) Lymph # (Auto) [place] # (Auto) Eos # (Auto) Baso # (Auto) Abs Immat Gran (auto) Absolute Neuts (auto) Absolute Nucleated RBC Nucleated RBC % (auto) VBG pH VBG pCO2 VBG pO2 VBG HCO3 VBG O2 Saturation VBG Base Excess Anion Gap Estim Creat Clear Calc Estimated GFR Random Glucose Lactic Acid Calcium Magnesium Total Bilirubin Direct Bilirubin AST ALT Alkaline Phosphatase Total Protein Albumin Lipase Beta-Hydroxybutyrate Beta HCG, Quant Urine Color Urine Appearance Urine pH Ur Specific [place] Urine Protein Urine Glucose (UA) Urine Ketones Urine Blood Urine Nitrite Ur Leukocyte Esterase Urine RBC Urine WBC Ur Squamous Epith Cells Urine Bacteria Hyaline Casts Urine Test Salicylates < 5.0 L Urine Opiates Screen Ur Buprenorphine Scrn Ur Oxycodone Screen Urine Methadone Screen Urine Fentanyl Screen Ur Barbiturates Screen Ur Phencyclidine Scrn Ur Amphetamines Screen U Benzodiazepines Scrn Urine Cocaine Screen U Marijuana (THC) Screen Imaging Radiologist's Impressions: Impressions Abdomen/Pelvis CT 06/11/24 13:32 IMPRESSION: No hydronephrosis or nephrolithiasis. Levoconvex curvature of the lumbar spine. 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 Fleischner guidelines were followed. Electronically signed by: Ian Nicole MD 06/11/2024 01:55 PM EDT RP Assessment and Plan (1) Pyelonephritis: Status: Acute (2) Acute hypokalemia: Status: Acute (3) Chronic vomiting: Status: Acute Plan Patient is a 23-year-old female with a past medical history significant for history of kidney stones, migraines, anxiety/depression, chronic vomiting syndrome and chronic diarrhea, who presented to the ED due to severe 10/10 left flank pain, chronic nausea, vomiting and diarrhea. Pyelonephritis -- clinical with UTI - WBC 10.4, tachycardia secondary to anxiety, lactic acid normal, no sepsis - abdominopelvic CT without hydronephrosis or nephrolithiasis - UA positive, culture pending - started on ceftriaxone in ED, continue - monitor CBC and BMP Acute hypokalemia - likely secondary to chronic vomiting syndrome and diarrhea - received 80 mEq p.o. potassium and 40 IV potassium in ED, recheck now - potassium initially 2.6 without any improvement with repeat checks in ED - magnesium normal - monitor BMP - consider nephrology consult for possible potassium wasting if no improvement on repeat BMP Respiratory alkalosis - patient was on supplemental O2 when she arrived to the ED, saturating at 99% on room air - no upper respiratory symptoms - likely secondary to hyeroventilation from anxiety Chronic vomiting - patient states that she was told she is not have cyclical vomiting - discussed the possibility of cannabinoid induced hyperemesis syndrome - not currently having nausea or vomiting - follow-up outpatient with Gastroenterology Full code VTE prophy: lovenox Patient with acute pyelonephritis complicated by hypokalemia, requiring admission for at least 2 midnight stay for IV antibiotics, potassium supplementation and monitoring. Quality Stroke Does the patient have a stroke diagnosis?: No VTE Prior VTE?: No VTE Risk Level:: Medical - moderate - high VTE Device Contraindication: N/A - Device Ordered VTE Drug Contraindication: N/A - Med Ordered
[2024-06-11 21:26] LABS: VBG Base Excess 4.1 mmol/L; VBG HCO3 28 mmol/L (22-26); VBG pCO2 43 mmHg; VBG pH 7.42 (7.32-7.43); VBG pO2 38 mmHg
[2024-06-11 21:28] LABS: Venous Blood Gas Refer to POC result
[2024-06-11 21:42] LABS: Anion Gap 11 (12-20); Blood Urea Nitrogen 11 mg/dL (9-16); Calcium 8.1 mg/dL (8.4-10.2); Carbon Dioxide 26 mmol/L (22-29); Chloride 102 mmol/L (96-108); Creatinine Clr Calc Pharmacy 77.4; Estimated Glomerular Filt Rate > 60; Glucose Random 94 mg/dL (60-115); Potassium 2.7 mmol/L (3.3-5.1); Sodium 136 mmol/L (135-145)
[2024-06-11] MEDS: Lactated Ringers 1,000 ML 999 ML IV (21:46)
--- NOTE | 2024-06-11 21:56 | PC.NURSE ---
Pt reports pain on the right wrist IV line site. No redness, swelling, or infiltration noted. IV line removed per pts request. IV intact. Site cleaned and dressing applied. 22G IV line placed on the left FA. Pt tolerated well. LR currently running.
[2024-06-11] MEDS: diphenhydrAMINE HCL 50 MG/ML VIAL 25 MG IVPUSH (22:51)
[2024-06-12 01:41] VITALS: BP 111/66; PULSE 77; RESP 16; O2SAT 96
[2024-06-12] MEDS: Potassium Chloride/H20 10 MEQ/100 ML PIGGYBACK 100 MEQ IV ×2 (02:21→04:49)
[2024-06-12] MEDS: 0.9 % Sodium Chloride Flush 3 ML SYRINGE IVFLUSH (02:22)
[2024-06-12] MEDS: Metoclopramide HCl 10 MG/2 ML VIAL 5 MG IVPUSH (02:22)
[2024-06-12] MEDS: Melatonin 3 MG TABLET 6 MG PO (02:22)
[2024-06-12] MEDS: Acetaminophen 325 MG TABLET 650 MG PO (02:22)
[2024-06-12] MEDS: diazePAM 10 MG/2 ML CARTRIDGE 5 MG IVPUSH (02:49)
--- NOTE | 2024-06-12 02:55 | PC.NURSE ---
While doing rounds and medicating pt as per APR Pt suddenly had anxiety outburst, yelling, crying, and thrusting self on the bed. Pt visibly upset stating I can't do this, I need to shower. Verbal de escalation, calm and supportive presence provided. Pt intermittenly cooperative. No harm to self or others observed. [place] text sent to the hospitalist. New orders placed in the APR. Pt medicated and tolerated well. Pt currently sleeping at the bedside. No apparent distress noted. Monitoring is ongoing.
[2024-06-12 06:16] LABS: Anion Gap 9 (12-20); Blood Urea Nitrogen 9 mg/dL (9-16); Calcium 8.2 mg/dL (8.4-10.2); Carbon Dioxide 21 mmol/L (22-29); Chloride 111 mmol/L (96-108); Creatinine Clr Calc Pharmacy 91.2; Estimated Glomerular Filt Rate > 60; Glucose Random 85 mg/dL (60-115); Potassium 3.8 mmol/L (3.3-5.1); Sodium 137 mmol/L (135-145)
--- NOTE | 2024-06-12 08:57 | PM.CNNEP ---
History of Present Illness Reason for Consult Consult date: 06/12/24 Chief Complaint Chief complaint: Hypokalemia History of Present Illness Narrative: Patient is a 23 y/o female with a medical history of renal stones, migraines, anxiety/depression, chronic vomiting syndrome, chronic diarrhea. presented 06/11 with severe flank pain, and episode of nausea, comiting, diarrhea (chronic/cyclical). also reports chronic urinary frequency, urgency, occasional incontinence. No hematuria/dysuria. being treated for pyelonephritis Nephrology consulted for hyopkalemia on presentation potassium was 2.3. Potassium replaced x1 IV and x3 PO. subsequent potassium levels 2.5, 2.7, and on 06/12 a.m. is 3.8 patient reports that while her nausea/vomiting has subsided in ED, she continues to have diarrhea. beta hydroxybuterate elevated at 1.00 patient reports she has a family history of kidney problems on her father's side, though is unable to specify whom or specific diseases. reports there is also a history of lupus on her father's side of the family, unable to specify which relatives. UA positive for WBCs, negative for blood/protein patient reports uses marijuana but plans to stop. Review of Systems Constitutional: Reports fatigue Denies dizziness Cardiovascular: Denies chest pain, Denies leg edema and Denies dyspnea Respiratory: Denies cough and Denies dyspnea Gastrointestinal: Reports abdominal pain (reports left sided abdominal pain), Reports diarrhea, Reports nausea and Reports vomiting Genitourinary: Denies hematuria, Denies difficulty voiding, Denies dysuria, Reports flank pain (left sided flank pain) and Reports urinary urgency Musculoskeletal: Reports back pain, Denies muscle cramps and Denies tingling Skin/Breast: Reports change in pigmentation (patient reports white/purple discoloration in her hands intermittently) and Denies rash Denies dizziness, Denies tingling and Denies paresthesias Psychiatric: Reports anxiety and Reports depression Endocrine: Reports fatigue PMFSH Social History Social History Household Members: Family Housing: Apartment Unable to assess alcohol history related to: Unknown Alcohol intake: unknown Patient Tobacco Use Status: Never used Tobacco Substance Use Type: Marijuana Meds Allergies Allergy/AdvReac Type Severity Reaction Status Date / Time No Known Allergies Allergy Verified 06/11/24 11:32 Active Medications: Current Medications Acetaminophen (Acetaminophen 325 Mg Tablet) 650 mg PO Q6H PRN PRN Reason: Pain, Mild 1-3,fever,headache Last Admin: 06/12/24 02:22 Dose: 650 mg Calcium Carbonate (Calcium Carbonate 750 Mg Tab.Chew) 750 mg PO Q4H PRN PRN Reason: Heartburn Ceftriaxone Sodium (Ceftriaxone Sodium 1 Gm Vial) 1 gm IVPUSH Q24H HERNAN Magnesium Hydroxide (Milk Of Magnesia 30 Ml Oral.Susp) 30 ml PO DAILY PRN PRN Reason: Constipation Melatonin (Melatonin 3 Mg Tablet) 6 mg PO BEDTIME PRN PRN Reason: Insomnia Last Admin: 06/12/24 02:22 Dose: 6 mg Metoclopramide HCl (Metoclopramide Hcl 10 Mg/2 Ml Vial) 5 mg IVPUSH Q6H PRN PRN Reason: Nausea and Vomiting Last Admin: 06/12/24 02:22 Dose: 5 mg Sodium Chloride (0.9 % Sodium Chloride Flush 3 Ml Syringe) 3 ml IVFLUSH QSHIFT HERNAN Last Admin: 06/12/24 07:56 Dose: Not Given Home Medications ?Medication ?Instructions ?Recorded ?Confirmed ?Last Taken ?Type diphenhydramine HCl 25 mg capsule 25 mg PO BEDTIME PRN Allergy 06/11/24 06/11/24 Unknown History (Benadryl) Symptoms ibuprofen 200 mg tablet 600 - 800 mg PO Q6H PRN Pain 06/11/24 06/11/24 Unknown History Physical Exam Vital Signs: Last Vital Signs Temp 98.0 F 06/11/24 21:44 Pulse 77 06/12/24 01:41 Resp 16 06/12/24 01:41 BP 111/66 06/12/24 01:41 Pulse Ox 96 06/12/24 01:41 O2 Del Method Room Air 06/12/24 01:41 BMI result Body Mass Index 15.4 Const General: no acute distress, alert and awake Orientation/consciousness: patient oriented x3 Resp Effort & Inspection: normal respiratory effort Auscultation: clear to auscultation bilaterally Cardio Rate: regular rate Rhythm: regular rhythm Heart sounds: S1 normal heart sound present and S2 normal heart sound present GI Palpation (GI): Soft to palpation and Tenderness to palpation present (GI) in the LLQ General: Yes CVA tenderness (left side) Back/Spine/Pelvis Back: CVA tenderness (left side) Skin Lesions: no lesions Rashes: no rashes Neuro General: patient oriented x3 Extrem General: No edema Results Lab Results 06/11/24 12:04 06/12/24 05:10 Lab results: Chemistry 06/11/24 06/11/24 06/11/24 12:04 14:02 16:35 Sodium 128 L 129 L 132 L Potassium 2.5 L* 2.3 L* 2.5 L* Carbon Dioxide 32 H 28 24 BUN 18 H 17 H 12 Creatinine 0.78 0.72 0.64 Calcium 10.3 H 8.9 D 7.9 L D 06/11/24 06/12/24 21:16 05:10 Sodium 136 137 Potassium 2.7 L* 3.8 D Carbon Dioxide 26 21 L BUN 11 9 Creatinine 0.73 0.62 Calcium 8.1 L 8.2 L Hematology 06/11/24 12:04 WBC 10.4 Hgb 16.3 H Plt Count 391 Urinalysis 06/11/24 15:28 Urine Color Yellow Urine Appearance Clear Urine pH >= 9.0 Ur Specific [place] <= 1.005 Urine Protein Negative Urine Glucose (UA) Negative Urine Ketones 15 Urine Blood Negative Urine Nitrite Negative Ur Leukocyte Esterase Large (3+) H Urine RBC 0-2 Urine WBC 21-50 H Ur Squamous Epith Cells 3-5 Hyaline Casts 0-2 Assessment and Plan (1) Acute hypokalemia: Status: Acute (2) Pyelonephritis: Status: Acute (3) Chronic vomiting: Status: Acute Plan Hypokalemia secondary to potassium losses from vomiting and diarrhea. Improving with potassium replacement and resolution of vomiting - continued diarrhea is likely cause of continued hypokalemia despite replacement recommend to patient to discontinue all marijuana, as this may be contributing to chronic/cyclical vomiting. Recommend treating underlying cause of vomiting/diarrhea. renal function is within normal limits- will check urine protein creatinine ratio to ensure no underlying renal disease recommend monitoring electrolytes daily- replace potassium as needed will check vitamin D level given mild hypocalcemia Discussed with Dr Polk Procedures Date of Service Date of Service: 06/12/24
[2024-06-12 09:06] VITALS: BP 81/60; PULSE 82; RESP 16; TEMP 37.2; O2SAT 100
[2024-06-12 09:20] VITALS: BP 94/58
[2024-06-12] MEDS: Potassium Chloride/H20 10 MEQ/100 ML PIGGYBACK 50 MEQ IV (09:23)
[2024-06-12 09:50] VITALS: BMI 17.5
[2024-06-12 09:52] VITALS: BMI 17.5
--- NOTE | 2024-06-12 11:10 | PM.DS ---
DS: Providers Provider Date of Service: 06/12/24 Date of admission: 06/11/24 17:31 Date of discharge: 06/12/24 Primary care physician: None Physician Consults: 06/11/24 22:00 Consult to Nephrology Routine Consulting Provider: [facility] Reason for consultation: hypokalemia DS: Diagnosis Discharge Diagnosis (1) Acute hypokalemia: Status: Acute (2) Pyelonephritis: Status: Acute (3) Chronic vomiting: Status: Acute DS: Summary Hospital Course Hospital Course: from initial hpi: 23-year-old female with a past medical history significant for history of kidney stones, migraines, anxiety/depression, chronic vomiting syndrome and chronic diarrhea, who presented to the ED due to severe 10/10 left flank pain, chronic nausea, vomiting and diarrhea. She reports that her nausea vomiting and diarrhea are at baseline. She states that she has urinary frequency which is also chronic, with urgency and occasional urinary incontinence, no hematuria or dysuria. She denies any fever or chills. No upper respiratory symptoms including cough, chest pain, shortness of breath, rhinorrhea, nasal congestion. hospital course: Patient was admitted for acute respiratory and metabolic alkalosis with additional acute metabolic acidosis due to acute on chronic nausea and vomiting from cannabis use complicated by mild starvation ketoacidosis and acute hypokalemia and hyponatremia. Patient was given IV fluids, potassium supplement and symptoms fully resolved. Patient is now tolerating solid diet. Hypotension due to hypovolemia and chronic low blood pressures not sepsis. Patient is encouraged to avoid cannabis use. For urinary tract infection possible acute pyelonephritis was treated with ceftriaxone and symptoms resolved. We will be discharged on 5 more days of Ceftin and should follow up cultures in case antibiotics needed to be changed. Time Attestation Discharge Coordination Time (in mins): 37 Quality: Safe Use of Opioids Does Pt have an Active Cancer Diagnosis on the Problem List?: No Quality: Stroke Does the patient have a stroke diagnosis?: No Physical Exam Vital Signs: Vital Signs: Last Vital Signs Temp 98.9 F 06/12/24 09:06 Pulse 82 06/12/24 09:06 Resp 16 06/12/24 09:06 BP 81/60 L 06/12/24 09:06 Pulse Ox 100 06/12/24 09:06 O2 Del Method Room Air 06/12/24 09:06 BMI result Body Mass Index 17.5 General: AO X 3, no acute distress Resp: CTA bilateral, no accessory muscles used CVS: S1,S2,RRR GI: soft, non tender, non distended Neuro: motor grossly intact, alert Psych: appropriate affect, appropriate insight DS: Data Data Completed and Pending Labs on day of discharge: Laboratory Results - last 24 hr 06/11/24 06/11/24 06/11/24 12:04 14:02 15:02 WBC 10.4 RBC 5.48 Hgb 16.3 H Hct 44.5 MCV 81.2 MCH 29.7 MCHC 36.6 H RDW 13.0 Plt Count 391 MPV 9.1 L Immature Gran % (Auto) 0.5 H Neut % (Auto) 69.6 Lymph % (Auto) 17.1 L [place] % (Auto) 11.4 H Eos % (Auto) 1.1 Baso % (Auto) 0.3 Lymph # (Auto) 1.8 [place] # (Auto) 1.2 Eos # (Auto) 0.1 Baso # (Auto) 0.0 Abs Immat Gran (auto) 0.05 H Absolute Neuts (auto) 7.3 Absolute Nucleated RBC 0.000 Nucleated RBC % (auto) 0.0 VBG pH 7.62 H* VBG pCO2 30 VBG pO2 49 VBG HCO3 31 H VBG O2 Saturation 82.0 VBG Base Excess 10.4 Sodium 128 L 129 L Potassium 2.5 L* 2.3 L* Chloride 77 L 85 L Carbon Dioxide 32 H 28 Anion Gap 22 H 18 BUN 18 H 17 H Creatinine 0.78 0.72 Estim Creat Clear Calc 72.5 78.5 Estimated GFR > 60 > 60 Random Glucose 114 96 Lactic Acid Calcium 10.3 H 8.9 D Magnesium 2.9 H Total Bilirubin 1.8 H 1.7 H Direct Bilirubin 0.5 AST 30 21 ALT 28 21 Alkaline Phosphatase 74 65 Total Protein 9.3 H 8.0 Albumin 5.0 4.3 Lipase 11 Beta-Hydroxybutyrate 1.00 H Beta HCG, Quant < 2 Urine Color Urine Appearance Urine pH Ur Specific [place] Urine Protein Urine Glucose (UA) Urine Ketones Urine Blood Urine Nitrite Ur Leukocyte Esterase Urine RBC Urine WBC Ur Squamous Epith Cells Urine Bacteria Hyaline Casts Urine Test Salicylates Urine Opiates Screen Ur Buprenorphine Scrn Ur Oxycodone Screen Urine Methadone Screen Urine Fentanyl Screen Ur Barbiturates Screen Ur Phencyclidine Scrn Ur Amphetamines Screen U Benzodiazepines Scrn Urine Cocaine Screen U Marijuana (THC) Screen 06/11/24 06/11/24 06/11/24 15:28 16:35 16:39 WBC RBC Hgb Hct MCV MCH MCHC RDW Plt Count MPV Immature Gran % (Auto) Neut % (Auto) Lymph % (Auto) [place] % (Auto) Eos % (Auto) Baso % (Auto) Lymph # (Auto) [place] # (Auto) Eos # (Auto) Baso # (Auto) Abs Immat Gran (auto) Absolute Neuts (auto) Absolute Nucleated RBC Nucleated RBC % (auto) VBG pH 7.63 H* VBG pCO2 26 VBG pO2 83 VBG HCO3 28 H VBG O2 Saturation 99.0 VBG Base Excess 7.9 Sodium 132 L Potassium 2.5 L* Chloride 97 Carbon Dioxide 24 Anion Gap 14 BUN 12 Creatinine 0.64 Estim Creat Clear Calc 88.3 Estimated GFR > 60 Random Glucose 88 Lactic Acid 1.3 Calcium 7.9 L D Magnesium Total Bilirubin Direct Bilirubin AST ALT Alkaline Phosphatase Total Protein Albumin Lipase Beta-Hydroxybutyrate Beta HCG, Quant Urine Color Yellow Urine Appearance Clear Urine pH >= 9.0 Ur Specific [place] <= 1.005 Urine Protein Negative Urine Glucose (UA) Negative Urine Ketones 15 Urine Blood Negative Urine Nitrite Negative Ur Leukocyte Esterase Large (3+) H Urine RBC 0-2 Urine WBC 21-50 H Ur Squamous Epith Cells 3-5 Urine Bacteria Trace Hyaline Casts 0-2 Urine Test NEGATIVE Salicylates Urine Opiates Screen Not Detected Ur Buprenorphine Scrn Not Detected Ur Oxycodone Screen Not Detected Urine Methadone Screen Not Detected Urine Fentanyl Screen Not Detected Ur Barbiturates Screen Not Detected Ur Phencyclidine Scrn Not Detected Ur Amphetamines Screen Not Detected U Benzodiazepines Scrn Not Detected Urine Cocaine Screen Not Detected U Marijuana (THC) Screen POSITIVE H 06/11/24 06/11/24 06/11/24 19:57 21:16 21:22 WBC RBC Hgb Hct MCV MCH MCHC RDW Plt Count MPV Immature Gran % (Auto) Neut % (Auto) Lymph % (Auto) [place] % (Auto) Eos % (Auto) Baso % (Auto) Lymph # (Auto) [place] # (Auto) Eos # (Auto) Baso # (Auto) Abs Immat Gran (auto) Absolute Neuts (auto) Absolute Nucleated RBC Nucleated RBC % (auto) VBG pH 7.42 VBG pCO2 43 VBG pO2 38 VBG HCO3 28 H VBG O2 Saturation 52.0 VBG Base Excess 4.1 Sodium 136 Potassium 2.7 L* Chloride 102 Carbon Dioxide 26 Anion Gap 11 L BUN 11 Creatinine 0.73 Estim Creat Clear Calc 77.4 Estimated GFR > 60 Random Glucose 94 Lactic Acid Calcium 8.1 L Magnesium Total Bilirubin Direct Bilirubin AST ALT Alkaline Phosphatase Total Protein Albumin Lipase Beta-Hydroxybutyrate Beta HCG, Quant Urine Color Urine Appearance Urine pH Ur Specific [place] Urine Protein Urine Glucose (UA) Urine Ketones Urine Blood Urine Nitrite Ur Leukocyte Esterase Urine RBC Urine WBC Ur Squamous Epith Cells Urine Bacteria Hyaline Casts Urine Test Salicylates < 5.0 L Urine Opiates Screen Ur Buprenorphine Scrn Ur Oxycodone Screen Urine Methadone Screen Urine Fentanyl Screen Ur Barbiturates Screen Ur Phencyclidine Scrn Ur Amphetamines Screen U Benzodiazepines Scrn Urine Cocaine Screen U Marijuana (THC) Screen 06/12/24 05:10 WBC RBC Hgb Hct MCV MCH MCHC RDW Plt Count MPV Immature Gran % (Auto) Neut % (Auto) Lymph % (Auto) [place] % (Auto) Eos % (Auto) Baso % (Auto) Lymph # (Auto) [place] # (Auto) Eos # (Auto) Baso # (Auto) Abs Immat Gran (auto) Absolute Neuts (auto) Absolute Nucleated RBC Nucleated RBC % (auto) VBG pH VBG pCO2 VBG pO2 VBG HCO3 VBG O2 Saturation VBG Base Excess Sodium 137 Potassium 3.8 D Chloride 111 H Carbon Dioxide 21 L Anion Gap 9 L BUN 9 Creatinine 0.62 Estim Creat Clear Calc 91.2 Estimated GFR > 60 Random Glucose 85 Lactic Acid Calcium 8.2 L Magnesium Total Bilirubin Direct Bilirubin AST ALT Alkaline Phosphatase Total Protein Albumin Lipase Beta-Hydroxybutyrate Beta HCG, Quant Urine Color Urine Appearance Urine pH Ur Specific [place] Urine Protein Urine Glucose (UA) Urine Ketones Urine Blood Urine Nitrite Ur Leukocyte Esterase Urine RBC Urine WBC Ur Squamous Epith Cells Urine Bacteria Hyaline Casts Urine Test Salicylates Urine Opiates Screen Ur Buprenorphine Scrn Ur Oxycodone Screen Urine Methadone Screen Urine Fentanyl Screen Ur Barbiturates Screen Ur Phencyclidine Scrn Ur Amphetamines Screen U Benzodiazepines Scrn Urine Cocaine Screen U Marijuana (THC) Screen Preliminary micro results at discharge 06/11/24 Unknown Urine Culture - Preliminary Urine clean catch - Clean Catch Midstream Culture too young to evaluate. Discharge Plan Discharge Anticipated Discharge Date/Time: 06/12/24 11:09 Patient Disposition: Home, Self-Care Discharge Diagnosis: chronic vomiting, uti Referrals: Physician,None [Primary Care Provider] - 1 Week Discharge Medications: New cefuroxime axetil 500 mg tablet 500 mg PO BID Qty: 10 0RF Continued diphenhydramine HCl [Benadryl] 25 mg Capsule 25 mg PO BEDTIME PRN (Reason: Allergy Symptoms) Discontinued ibuprofen 200 mg Tablet 600 - 800 mg PO Q6H PRN (Reason: Pain) Discharge Orders: Discharge Order (Routine); Ordered 06/12/24 Ordered By: Jf Finley Diet: Advance to usual diet Activity on Discharge: As tolerated Stand Alone Forms: Patient Portal Discharge page, Work/School Release Print Language: Arabic Care Plan Goals: recovery Health Concerns: n/v uti Plan of Treatment: avoid cannabis 5 days ceftin, follow up culture Assessment: see above
--- NOTE | 2024-06-12 11:43 | MHC.CM.PN ---
Addendum entered by Concepcion Cohen 06/12/24 15:07: Pt is medically cleared for discharge home self-care, she has arranged her own transport home. Original Note: Pt self-care, lives at home with her step-dad and sister. Pt will arrange her own transport home at discharge, New HCP completed, now on file. Pt does not have a PCP, local list of PCP's given to pt.
[2024-06-12 11:51] VITALS: BP 94/64; PULSE 76; RESP 14; TEMP 37.1; O2SAT 100
[2024-06-16 14:28] LABS: Vitamin D 25-OH, D2 <4 ng/mL; Vitamin D 25-OH, D3 7 ng/mL; Vitamin D 25-OH, Total 7 ng/mL (30-100)
== END 2024-06-12 14:03 | disposition home or self-care (01) | DRG 463 ==
LOC: HO.ED 17:35 → HO.EDOVER 17:39 → HO.IMC 06-12 07:54
PROVIDERS: Nurse Practitioner Family; Physician Assistant; Student in an Organized Health Care Education/Training Program; Admitting Provider Internal Medicine; Emergency Provider Emergency Medicine Emergency Medical Services; Visit Provider Internal Medicine
DX: N10 Acute pyelonephritis (principal); E87.1 Hypo-osmolality and hyponatremia; I95.9 Hypotension, unspecified; E87.4 Mixed disorder of acid-base balance; E88.89 Other specified metabolic disorders; E86.1 Hypovolemia; E87.6 Hypokalemia; R11.2 Nausea with vomiting, unspecified; F12.90 Cannabis use, unspecified, uncomplicated; Z87.442 Personal history of urinary calculi
CPT/HCPCS: 36415; 74176; 80048; 80053; 80076; 80179; 80307; 81001; 81025; 82010; 82306; 82803; 83605; 83690; 83735; 84702; 85025; 87040; 87086; 93005; 99285; J0696; J1200; J1885; J2405; J2765; J3360; J3480; J7120

== ENCOUNTER → 2024-06-11 11:37 | Outpatient (BNV) | payer MEDICAID, SELFPAY | PROVIDERS: Emergency Provider Emergency Medicine Emergency Medical Services; Visit Provider Radiology Diagnostic Radiology | DX: M41.86 Other forms of scoliosis, lumbar region (principal) | CPT/HCPCS: 74176 ==

== ENCOUNTER → 2024-06-11 11:39 | Outpatient (BNV) | payer MEDICAID, SELFPAY | PROVIDERS: Admitting Provider Internal Medicine; Emergency Provider Emergency Medicine Emergency Medical Services; Visit Provider Internal Medicine | DX: R00.0 Tachycardia, unspecified (principal); I51.7 Cardiomegaly; I45.81 Long QT syndrome | CPT/HCPCS: 93010 ==

== ENCOUNTER → 2024-06-11 17:31 | Outpatient (BNV) | payer MEDICAID, SELFPAY | PROVIDERS: Admitting Provider Internal Medicine; Emergency Provider Emergency Medicine Emergency Medical Services; Visit Provider Nurse Practitioner Family | DX: E87.6 Hypokalemia (principal); N12 Tubulo-interstitial nephritis, not specified as acute or chronic; R11.10 Vomiting, unspecified | CPT/HCPCS: 99221 ==

== ENCOUNTER → 2024-06-11 17:31 | Outpatient (BNV) | payer MEDICAID, SELFPAY | PROVIDERS: Admitting Provider Internal Medicine; Emergency Provider Emergency Medicine Emergency Medical Services; Visit Provider Physician Assistant | DX: E87.6 Hypokalemia (principal); N12 Tubulo-interstitial nephritis, not specified as acute or chronic; R11.10 Vomiting, unspecified | CPT/HCPCS: 99223; 99239 ==

== ENCOUNTER 2024-06-21 23:06 | Emergency (ER) | payer MEDICAID, SELFPAY ==
[2024-06-21 23:13] VITALS: BP 92/46; PULSE 95; RESP 18; TEMP 36.7; O2SAT 98; BMI 14.6
[2024-06-21 23:27] LABS: MANUAL DIFF FLAG NO
[2024-06-21 23:28] LABS: Basophils Percent Auto 0.3 % (0-2); Eosinophils Absolute Auto 0.1 X10*3/uL (0.0-0.4); Eosinophils Percent Auto 2.3 % (0-4); Hematocrit 35.3 % (37.0-47.0); Hemoglobin 12.3 g/dl (12.0-16.0); Imm Gran Abs Auto 0.01 X10*3/uL (0.00-0.03); Imm Gran Pct Auto 0.2 % (0.0-0.4); Lymphocytes Absolute Auto 2.3 X10*3/uL (1.2-4.9); Lymphocytes Percent Auto 38.2 % (20-40); Mean Corpuscular HGB Conc 34.8 g/dl (31.0-35.0); Mean Corpuscular Volume 86.1 fL (80.0-98.0); Mean Platelet Volume 8.6 fL (9.4-12.3); Monocytes Absolute Auto 0.7 X10*3/uL (0.1-1.2); Monocytes Percent Auto 11.2 % (2-11); Neutrophils Absolute Auto 2.9 x10*3/uL (2.0-8.3); Neutrophils Percent Auto 47.8 % (45-73); Platelet Count 265 X10*3/uL (160-400); Red Cell Distribution Width 13.5 % (11.0-16.0)
[2024-06-21 23:47] LABS: Alanine Aminotransferase 8 U/L (0-31); Albumin Level 4.4 g/dL (3.5-5.0); Alkaline Phosphatase 46 U/L (39-117); Anion Gap 16 (12-20); Aspartate Amino Transferase 17 U/L (5-31); Bilirubin Total 0.8 mg/dL (0.0-1.0); Blood Urea Nitrogen 10 mg/dL (9-16); Calcium 9.9 mg/dL (8.4-10.2); Carbon Dioxide 25 mmol/L (22-29); Chloride 101 mmol/L (96-108); Creatinine Clr Calc Pharmacy 69.7; Estimated Glomerular Filt Rate > 60; Glucose Random 92 mg/dL (60-115); Sodium 139 mmol/L (135-145); Total Protein 7.5 g/dL (6.5-8.0)
--- NOTE | 2024-06-22 01:19 | ED.ABDPAIN ---
HPI - Abdominal Pain General Chief Complaint: Abdominal Pain Stated Complaint: vomiting- weight loss Time Seen by Provider: 06/22/24 01:19 Source: patient, RN notes reviewed and old records reviewed Mode of arrival: ambulatory Limitations: no limitations History of Present Illness ED Provider: Marge Moncada PA-C HPI narrative: 23-year-old female with a past medical history significant for history of kidney stones, migraines, anxiety/depression, chronic vomiting syndrome secondary to marijuana use and chronic diarrhea. She was recently admitted here and seen in the ED on move that is 10 days ago was admitted for hypokalemia and chronic vomiting found to have a kidney infection she was discharged on Cefuroxime. This past weekend 5 days ago patient states that she started to feel nauseous again and had a least 2 or 3 episodes a day of vomiting and diarrhea. She states that she has not smoked marijuana for least 1 month now. Patient used to live in [place] and now she has established in this area and with [place]. She has not seen a local prison keeper. Several years ago before she had a workup done through gastroenterology and was told 2 years ago that she had H pylori infection was treated but was never checked for clearance. Patient is concerned that over the past several months she has lost about 15 lb unintentionally but for about 5 years now has had chronic nausea vomiting and diarrhea with no answers. She reports that this causes a great deal of anxiety for her she is not currently established with a psychiatrist due to her moving. She is denying any SI HI or AVH. Patient refuses IV potassium as it murphy too much and does not want to tolerate it. She is requesting if she needs it be given with ice chips only NPO. Patient is requesting anxiety medication. She states any time that her anxiety that is worsened due to her condition her symptoms also worsened. She has a mild frontal headache for which she has not taken anything for. She is denying any fevers chills or night sweats. She is denying any symptoms such as dysuria urgency or frequency. Denying backache joint pain or rashes. Reports no blood in her stool or her vomit. Last time she vomited was earlier this morning. She has been able to keep some fluids down. Denies any sore throat nasal congestion and coughing. She does not feel short of breath. Two days ago patient took 600 mg of ibuprofen for a headache which did help a little bit. No sick contacts or travel. Pertinent past history: other (H/ Pylori infection, cyclic vomiting syndrome) Severity: moderate Quality: aching Radiation: none Relieving factors: nothing Related Data Home Medications ?Medication ?Instructions ?Recorded ?Confirmed diphenhydramine HCl 25 mg capsule 25 mg PO BEDTIME PRN Allergy 06/11/24 06/11/24 (Benadryl) Symptoms Previous Rx's ?Medication ?Instructions ?Recorded cefuroxime axetil 500 mg tablet 500 mg PO BID #10 tabs 06/12/24 potassium chloride 40 mEq/15 mL 40 meq (15 mL) PO DAILY #473 mL 06/22/24 oral liquid Allergies Allergy/AdvReac Type Severity Reaction Status Date / Time Iodinated Contrast Media Allergy Unconscious Verified 06/21/24 23:15 [Contrast Dye] Review of Systems Review of Systems Yes all other systems are reviewed and are negative [facility] Past Medical History Attestation statement: The following information was validated with the patient. Source: old records reviewed and nursing notes reviewed Social History Social History Household Members: Family Housing: Apartment Unable to assess alcohol history related to: Unknown Alcohol intake: unknown Patient Tobacco Use Status: Never used Tobacco Substance Use Type: Marijuana Advance Directives: No Do you have a plan to hurt others: No Plan service: No Physical Exam ED Vital Signs: Vital Signs - 24 hr 06/21/24 23:13 Temperature 98.0 F Pulse Rate 95 Respiratory Rate 18 Blood Pressure 92/46 L Pulse Oximetry 98 Oxygen Delivery Method Room Air BMI result Body Mass Index 14.6 Const General: cooperative, no acute distress, anxious, tired appearing and other (tearful) Nutritional Appearance: underweight Orientation/consciousness: patient oriented x3 Limitations: no limitations HENMT Head: Yes normal to inspection Ears: hearing grossly normal bilaterally General nose exam: Normal external nose present Face and sinus: Yes normal facial exam Mouth: lip normal, oropharynx normal and Abnormal oral and palatal mucosa present (dry) Teeth and gingiva: dentition normal Throat: Yes posterior oropharynx normal Neck Neck: Yes full ROM (Bilateral cervical anterior nodes focal with no tenderness) and Yes no lymphadenopathy Lymphatic: lymphadenopathy bilateral anterior cervical small and mobile Cardio Jugular venous distension: no JVD Rate: regular rate Rhythm: regular rhythm Peripheral pulses: Peripheral pulses 2+ throughout GI Inspection: Yes normal to inspection Palpation (GI): Soft to palpation and Other GI palpation findings present (nontender) Auscultation: normal bowel sounds Rectal Exam - Female: deferred General: Yes bladder normal to inspection and Yes no CVA tenderness Back/Spine/Pelvis Back: no CVA tenderness Skin General skin exam: no rashes or lesions noted and turgor normal Wounds: no wounds Neuro General: patient oriented x3 Psych Appearance: grossly normal Speech and movement: Normal speech and movement present Affect: Labile affect present and Anxious affect present Attitude: cooperative Medical Decision Making Differential Diagnosis Differential Diagnoses: The differential diagnosis associated with the presentation includes hypokalemia, anxiety, cyclic vomiting syndrome, viral gastroenteritis, dehydration Admission/Observation Consideration of admission/observation: Escalation of care including admission/observation considered Patient has asymptomatic urinalysis with leukocytosis potential for interstitial cystitis she is already on an antibiotic will wait for culture results to see if she needs an antibiotic or not her last culture was negative. She is not septic and does not show evidence for urosepsis either. She has a nontender nonacute abdomen. And although she did have some hypokalemia there was no EKG changes and this was replenished via p.o.. She refused IV. She will be given a prescription for p.o.. This does not require admission to the hospital. Case was discussed with my attending physician who agreed with plan. Lab Data MDM Lab Attestation statement: I reviewed the patient's lab results. low potassium, opted for I replenishment patient declined, EKG without U waves; pt agreed to PO potassium 06/21/24 23:22 06/21/24 23:22 Labs: Lab Results 06/21/24 06/22/24 06/22/24 Range/Units 23:22 01:58 02:28 WBC 6.0 (4.8-10.8) X10*3/uL RBC 4.10 L D (4.20-5.50) X10*6/uL Hgb 12.3 D (12.0-16.0) g/dl Hct 35.3 L D (37.0-47.0) % MCV 86.1 (80.0-98.0) fL MCH 30.0 (27.0-33.0) pg MCHC 34.8 (31.0-35.0) g/dl RDW 13.5 (11.0-16.0) % Plt Count 265 D (160-400) X10*3/uL MPV 8.6 L (9.4-12.3) fL Immature Gran % (Auto) 0.2 (0.0-0.4) % Neut % (Auto) 47.8 (45-73) % Lymph % (Auto) 38.2 (20-40) % [place] % (Auto) 11.2 H (2-11) % Eos % (Auto) 2.3 (0-4) % Baso % (Auto) 0.3 (0-2) % Lymph # (Auto) 2.3 (1.2-4.9) X10*3/uL [place] # (Auto) 0.7 (0.1-1.2) X10*3/uL Eos # (Auto) 0.1 (0.0-0.4) X10*3/uL Baso # (Auto) 0.0 (0.0-0.2) X10*3/uL Abs Immat Gran (auto) 0.01 (0.00-0.03) X10*3/uL Absolute Neuts (auto) 2.9 (2.0-8.3) x10*3/uL Absolute Nucleated RBC 0.000 (0.0-0.012) X10*3/uL Nucleated RBC % (auto) 0.0 (0.0-0.2) /100WBC Sodium 139 (135-145) mmol/L Potassium 3.0 L D (3.3-5.1) mmol/L Chloride 101 (96-108) mmol/L Carbon Dioxide 25 (22-29) mmol/L Anion Gap 16 (12-20) BUN 10 (9-16) mg/dL Creatinine 0.77 (0.5-1.4) mg/dL Estim Creat Clear Calc 69.7 Estimated GFR > 60 Random Glucose 92 (60-115) mg/dL Lactic Acid 0.8 (0.5-2.0) mmol/L Calcium 9.9 D (8.4-10.2) mg/dL Magnesium 1.9 (1.6-2.6) mg/dL Total Bilirubin 0.8 (0.0-1.0) mg/dL AST 17 (5-31) U/L ALT 8 (0-31) U/L Alkaline Phosphatase 46 (39-117) U/L Total Protein 7.5 (6.5-8.0) g/dL Albumin 4.4 (3.5-5.0) g/dL Urine Color Dark Yellow Urine Appearance Turbid Urine pH 5.5 (5.0-9.0) Ur Specific [place] >= 1.030 H (1.005-1.025) Urine Protein 100 (2+) H (Neg-Trace) mg/dL Urine Glucose (UA) Negative (Negative) mg/dL Urine Ketones 80 (Negative) mg/dL Urine Blood Moderate (2+) H (Negative) Urine Nitrite Negative (Negative) Ur Leukocyte Esterase Moderate (2+) H (Negative) Urine RBC 11-20 H (0-2) /HPF Urine WBC >50 H (0-5) /HPF Ur Squamous Epith Cells >20 (0-2) /HPF Urine Bacteria None Seen (None Seen) Hyaline Casts 3-5 (0-2) /LPF Independent Interpretation I performed an independent interpretation of an: EKG Interpretation: NSR 74 bpm External Record Review External record reviewed: Inpatient record Prescription Management I considered prescription management with: Other (potassium) Chronic Conditions Patient?s care impacted by: Other chronic vomiting and diarrhea Social Determinants Patient?s care significantly limited by Social Determinants of Health including: Low income and Problems related to primary support group Medications Administered Discontinued Medications Generic Name Dose Route Start Last Admin Trade Name Freq PRN Reason Stop Dose Admin Diphenhydramine HCl 50 mg 06/22/24 01:41 06/22/24 02:10 Diphenhydramine Hcl 50 Mg/Ml Vial IVPUSH 06/22/24 01:42 50 mg ONCE ONE Administration Lactated Ringer's 1,000 mls @ 999 mls/hr 06/22/24 01:25 06/22/24 02:12 Lr IV 06/22/24 02:25 999 mls/hr .Q1H1M ONE Administration Acetaminophen 1,000 mg in 100 mls @ 400 mls/hr 06/22/24 01:43 06/22/24 02:11 Ofirmev IV 06/22/24 01:57 400 mls/hr ONCE ONE Administration Potassium Chloride 20 meq 06/22/24 01:41 06/22/24 02:10 Potassium Chloride Er 20 Meq Tab.Er.Prt PO 06/22/24 01:42 20 meq ONCE ONE Administration Discharge Plan Discharge Clinical Impression: Acute hypokalemia, Chronic vomiting, Gastroenteritis, Cystitis, interstitial Patient Disposition: Home, Self-Care Instructions: Potassium Content of Foods List (ED), Gastroenteritis (ED), Interstitial Cystitis (ED) Additional Instructions: You were seen in the emergency department today due to nausea vomiting and diarrhea. Unfortunately this is an acute on chronic for you. You also have known low potassium. He received this while here you have also been given a prescription for this. This is likely due to your chronic vomiting and diarrhea losses. He received fluids while here there is no evidence of acute infection. You have a soft nontender abdomen. It is important that you do follow up with Gastroenterology. As you not have access to a psychiatrist I have given you are behavioral health information and at the very least there is telemedicine that you can get access to a psychiatrist sooner for management of your anxiety: try [employer]; this will allow you to utilize your health insurance. For any intractable vomiting diarrhea worsening conditions please come back to the emergency department Prescriptions: New potassium chloride 40 mEq/15 mL liquid 40 meq PO DAILY Qty: 473 0RF No Action diphenhydramine HCl [Benadryl] 25 mg Capsule 25 mg PO BEDTIME PRN (Reason: Allergy Symptoms) cefuroxime axetil 500 mg tablet 500 mg PO BID Qty: 10 0RF Referrals: [facility] [place] Behavioral Health Services [Provider Group] - 1 day [facility] [place] Gastroenterology Services [Provider Group] - 1 week Print Language: Armenian
--- NOTE | 2024-06-22 01:25 | ECG_ITS ---
Test Reason : electrolyte imbalance Blood Pressure : */* mmHG Vent. Rate : 74 BPM Atrial Rate : 74 BPM P-R Int : 134 ms QRS Dur : 86 ms QT Int : 390 ms P-R-T Axes : 63 93 66 degrees QTcB Int : 432 ms Normal sinus rhythm Rightward axis Borderline ECG When compared with ECG of 11-Jun-2024 11:45, Vent. rate has decreased by 43 bpm Borderline criteria for Anterolateral infarct are no longer Present ST no longer depressed in Inferior leads ST no longer depressed in Anterior leads Referred By: Marge Moncada Electronically Signed By: DANIA HADLEY MD
[2024-06-22 02:10] LABS: Appearance Urine Turbid; Color Urine Dark Yellow; Glucose Urine UA Negative (Negative); Leukocyte Esterase Urine Moderate (2+) (Negative); Nitrite Urine Negative (Negative); PH 5.5 (5.0-9.0); Specific Gravity - Urine >= 1.030 (1.005-1.025); UMIC TRIGGER UACC YES; Urine Blood Moderate (2+) (Negative); Urine Ketones 80 mg/dL (Negative); Urine Protein 100 (2+) mg/dL (Neg-Trace)
[2024-06-22] MEDS: Potassium Chloride ER 20 MEQ TAB.ER.PRT PO (02:10)
[2024-06-22] MEDS: diphenhydrAMINE HCL 50 MG/ML VIAL IVPUSH (02:10)
[2024-06-22] MEDS: Acetaminophen 1,000 MG/100 ML PIGGYBACK 400 MG IV (02:11)
[2024-06-22] MEDS: Lactated Ringers 1,000 ML 999 ML IV (02:12)
[2024-06-22 02:13] LABS: Magnesium 1.9 mg/dL (1.6-2.6)
[2024-06-22 02:32] LABS: Bacteria Urine None Seen (None Seen); Squamous Epithelial Cell Urine >20 /HPF (0-2); UACC Culture Trigger YES; WBC Urine >50 /HPF (0-5)
[2024-06-22 02:59] LABS: Lactic Acid 0.8 mmol/L (0.5-2.0)
[2024-06-22 04:21] VITALS: BP 119/63; PULSE 88; RESP 18; TEMP 36.8; O2SAT 99
[2024-06-22 04:46] VITALS: BP 119/63; PULSE 88; RESP 18; TEMP 36.8; O2SAT 99
== END 2024-06-22 05:04 | disposition home or self-care (01) ==
PROVIDERS: Emergency Medicine; Physician Assistant Medical; Emergency Provider Internal Medicine
DX: K52.9 Noninfective gastroenteritis and colitis, unspecified (principal); N30.10 Interstitial cystitis (chronic) without hematuria; E87.6 Hypokalemia; R11.2 Nausea with vomiting, unspecified; R94.31 Abnormal electrocardiogram [ECG] [EKG]; Z79.899 Other long term (current) drug therapy
CPT/HCPCS: 36415; 80053; 81001; 83605; 83735; 85025; 87086; 93005; 96361; 96365; 96375; 99284; J0131; J1200; J7120

== ENCOUNTER → 2024-06-22 01:25 | Outpatient (BNV) | payer MEDICAID, SELFPAY | PROVIDERS: Emergency Provider Internal Medicine; Visit Provider Internal Medicine Cardiovascular Disease | DX: E87.8 Other disorders of electrolyte and fluid balance, not elsewhere classified (principal) | CPT/HCPCS: 93010 ==